=== PATIENT | male | born 1955 | race Caucasian/White ===

== ENCOUNTER 2017-08-25 22:24 | Inpatient (IN) | payer OTHER ==
[~2017-08-25] VITALS: Ht 177.8 cm; Wt 90.7 kg
[~2017-08-25 22:24] MED LIST: ACETAMINOPHEN-1 EAC3 PO; ALPRAZOLAM1 M2 PO; CRESTOR40 M2 PO; CYCLOBENZAPRINE10 M1 PO; DUEXIS 800-26.1 EACH PO; ESCITALOPRAM OX20 MG PO; HYDROCHLOROTHIA25 M1 PO; ISOSORBIDE MONO60 M1 PO; LIDOCAINE1 EACH TOP; METFORMIN HCL500 M3 PO; METOPROLOL TART25 M1 PO; POTASSIUM CHLO20 ME2 PO; VICODIN 5-3001 EACH PO; VICTOZA 3-0.6 MG/0.1 SC
--- NOTE | 2017-08-25 22:34 | ED GI/GU/ABDOMINAL COMPLAINT ---
History of Present Illness General Chief Complaint: Nausea, Vomiting, Diarrhea Stated Complaint: N/V Source: patient, old records, EMS Exam Limitations: no limitations Allergies Coded Allergies: No Known Drug Allergies (Intermediate, NONE 05/11/17) Reconcile Medications Acetaminophen With Codeine (Acetaminophen-Cod #3 Tablet) 300 MG-30 MG TABLET 1 TAB PO Q6P PRN PAIN (Reported) Alprazolam 1 MG TABLET 1 TAB PO BID ANXIETY (Reported) Cyclobenzaprine HCl 10 MG TABLET 1 TAB PO QHS MUSCLE SPASMS (Reported) Escitalopram Oxalate 20 MG TABLET 30 MG PO DAILY MENTAL HEALTH (Reported) Hydrochlorothiazide 25 MG TABLET 1 TAB PO DAILY BP (Reported) Hydrocodone/Acetaminophen (Vicodin 5-300 MG Tablet) 5 MG-300 MG TABLET 1 TAB PO QHS PRN PAIN (Reported) Ibuprofen/Famotidine (Duexis 800-26.6 MG Tablet) 800 MG-26.6 MG TABLET 1 TAB PO TID ANTIINFLAMMATORY (Reported) Isosorbide Mononitrate (Isosorbide Mononitrate ER) 60 MG TAB.ER.24H 1 TAB PO DAILY HEART (Reported) Lidocaine 5 % ADH..PATCH 1 PAT TOP BID PRN PAIN (Reported) Liraglutide (Victoza 3-Giovanny) 0.6 MG/0.1 ML (18 MG/3 ML) PEN.INJCTR 1.8 MG SC DAILY DM (Reported) Metformin HCl 500 MG TABLET 1 TAB PO BID DM (Reported) Metoprolol Tartrate 25 MG TABLET 1.5 TAB PO BID HEART/BP (Reported) Potassium Chloride 20 MEQ TAB.ER.PRT 1 TAB PO DAILY SUPPLEMENT (Reported) Rosuvastatin Calcium (Crestor) 40 MG TABLET 1 TAB PO DAILY CHOLESTEROL ( Reported) Triage Note: PT BIBA FROM HOME FOR N/V AND NOT FEELING WELL X 3 DAYS. PER EMS PT C/O SOB SO THEY PLACED HIM ON 2L NC, AND THEY WERE UNABLE TO OBTAIN AN O2 SAT. PT'S BS EN ROUTE WAS 535, PT STATES HE HAS NOT EATEN OR TAKEN ANY OF HIS MEDS IN SEVERAL DAYS AND IS AN INSULIN DEPENDENT DIABETIC. PT AOX3 Triage Nurses Notes Reviewed? yes Onset: Abrupt Duration: day(s): (3), constant Timing: recent history Quality/Severity: moderate Severity Numbers: 6 Location: generalized abdomen Radiation: no radiation Activities at Onset: DENIES Prior Abdominal Problems: none No Modifying Factors: none Associated Symptoms: DENIES HPI: -year-old male with history of diabetes, coronary artery disease CABG presents the ER for evaluation complaining of nausea vomiting generalized malaise and not feeling well for the past 3 days. He's been unable to take his medication secondary to his symptoms. Denies any alcohol or drug use. No chest pain. He states that today he began feeling short of breath. No fever no chills. He reports a decreased urine output no black or bloody stools no modifying factors or associated symptoms no history of similar symptoms in the past. No history of DKA (Quoc Haney) Vital Signs & Intake/Output Vital Signs & Intake/Output Vital Signs Date Time Temp Pulse Resp B/P B/P Pulse O2 O2 Flow FiO2 Mean Ox Delivery Rate 08/26 0015 97.0 121 20 171/82 100 Nasal 2.0L Cannula 08/25 2305 Nasal 2.0L Cannula 08/25 2232 96.2 120 22 186/92 100 Nasal 2.0L Cannula ED Intake and Output 08/26 0000 08/25 1200 Intake Total Output Total Balance Patient 200 lb Weight Weight Reported by Patient Measurement Method (Michelle BEDOYA,Yahir Cee) Past History Travel History Traveled to [place] past 21 day No Medical History Any Pertinent Medical History? 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 No (Quoc Haney) Review of Systems Review of Systems Constitutional: Reports: see HPI. Comments Review of systems: See HPI, All other systems negative. Constitutional, no chills no fever, HEENT: no sore throat no congestion Cardiovascular: No chest pain , no palpitation Skin: no rashes, no change in skin Respiratory: dyspnea no cough no sputum GI: nausea vomiting, no diarrhea Muscle skeletal: No joint pain, no back pain Neurologic: , no headache Heme/endocrine: No bruising Immunology: No lymphadenopathy (Quoc Haney) Physical Exam Physical Exam General Appearance: well developed/nourished, alert, awake Gastrointestinal: soft, non-tender Comments: Well-developed well-nourished person in MODERATE acute distress HEENT: Normal EENT exam; PERRL, EOMI, HEAD is atraumatic. moist mucous membranes. Neck: Supple,normal range of motion Back:. Full range of motion Cardiovascular: Tachycardic, regular rhythm no murmur Respiratory: No respiratory distress. Patient speaking in full complete sentences. Breath sounds clear to auscultation bilaterally: NO W/R/R Abdomen: Soft, nontender nondistended, no appreciable organomegaly. Normal bowel sounds. No rebound/guarding, Extremity: No edema, full range of motion of extremities Neuro: Alert oriented x3, motor sensory normal. There were no obvious focal neurologic abnormalities. Skin: No appreciable rash on exposed skin, skin is warm and dry. Diaphoretic Psych: Mood and affect is normal, memory and judgment is normal. Core Measures ACS in differential dx? Yes Sepsis Present: No Sepsis Focused Exam Completed? No (Tamara STEWART,Quoc) Progress Differential Diagnosis: AMI, appendicitis, biliary colic, bowel obstruction, colon cancer, cholecystitis, diverticulitis, gastritis, hepatitis, hernia, ischemic bowel, inflamm bowel dis, pancreatitis, peptic ulcer, PUD/GERD, DKA, HHS, DEHYDRATION, ELECTROLYTE ABNORMALITY Diagnostic Imaging: Viewed by Me: CT Scan. Discussed w/RAD: CT Scan. Radiology Impression: PATIENT: VJ ESPINOSA PRESENT AGE: 62 PATIENT ACCOUNT NO: [id number] : 57 LOCATION: [facility] ORDERING PHYSICIAN: Quoc STEWART SERVICE DATE: 08/25/17 EXAM TYPE: CAT - CT ABD & PELVIS W/O IV CONTRAS EXAMINATION: CT ABDOMEN AND PELVIS WITHOUT CONTRAST CLINICAL INFORMATION: Diffuse abdominal pain. Nausea and vomiting. COMPARISON: None TECHNIQUE: Multidetector volumetric imaging was performed from the superior aspect of the liver through the pubic symphysis. Sagittal and coronal reformatted images were obtained on the technologist's workstation. DLP: 484.55 mGy-cm FINDINGS: LUNG BASES: Status post median sternotomy. Asymmetric elevation of left diaphragm above the right with linear subsegmental atelectasis at left lung base. Status post median sternotomy. LIVER, GALLBLADDER, AND BILIARY TREE: The liver is normal in size, shape, and attenuation. No focal hepatic lesion or biliary ductal dilatation is present. The gallbladder is unremarkable with no evidence of radiopaque gallstones, gallbladder wall thickening, or obvious pericholecystic inflammatory changes. PANCREAS: Unremarkable. SPLEEN: Unremarkable. ADRENAL GLANDS: Unremarkable. KIDNEYS AND URETERS: The kidneys are normal in size, shape, and attenuation. No hydronephrosis, hydroureter, or calculi seen. No perinephric stranding. BLADDER: Unremarkable. GASTROINTESTINAL TRACT: No acute change of the bowel. No bowel obstruction. No bowel wall thickening or edema. Moderate volume of stool throughout the colon. The appendix is normal. The small bowel loops are unremarkable. ABDOMINAL WALL: No significant hernia is appreciated. LYMPH NODES: Normal. VASCULAR: Atherosclerotic vascular wall calcifications of aorta and iliac vessels without aneurysm. PELVIC VISCERA: Unremarkable. OSSEOUS STRUCTURES : Degenerative spondylosis of spine with multilevel endplate spurring of the vertebrae. IMPRESSION: No acute abnormality CT scan abdomen pelvis. DICTATED BY: Hans Padilla MD DATE/TIME DICTATED:08/25/172331 HARDWOOD SAWYER:NEW DATE/TIME TRANSCRIBED:08/25/172331 CONFIDENTIAL, DO NOT COPY WITHOUT APPROPRIATE AUTHORIZATION. <Electronically signed in Other Vendor System> SIGNED BY: Hans Padilla MD 08/25/17 2341 Initial ED EKG: STACH AT 110, T WAVE INVERSIONS V4-V6 Prior EKG: changed (04/2017) Rhythm Strip: sinus tachycardia (Quoc Haney) Plan of Care: Orders Procedure Date/time Status Patient Data 08/26 0027 Active Admit to inpatient 08/26 0020 Active URINE OSMOLALITY 08/26 0017 Active URINALYSIS 08/26 0017 Active ARTERIAL BLOOD GAS (GEN) 08/25 2343 Complete SERUM OSMOLALITY 08/25 2300 Complete ACETONE 08/25 2300 Complete MIXED VENOUS BLOOD GAS (GEN) 08/25 2234 Active EKG 08/25 223 Active Saline Lock 08/25 222 Active TROPONIN LEVEL 08/25 222 Complete LIPASE 08/25 222 Complete ETHANOL 08/25 222 Complete COMPREHENSIVE METABOLIC PANEL 08/25 222 Complete CBC WITHOUT DIFFERENTIAL 08/25 222 Complete Laboratory Tests 08/25/17 2300: Anion Gap 36 H, Estimated GFR > 60, BUN/Creatinine Ratio 26.4 H, Glucose 578 * H, Serum Osmolality 333 H, Calcium 9.8, Total Bilirubin 0.6, AST 14 L, ALT 19 L, Alkaline Phosphatase 141 H, Troponin I 0.33 *H, Total Protein 7.6, Albumin 4.7, Globulin 2.9, Albumin/Globulin Ratio 1.6, Lipase 84, CBC w Diff NO MAN DIFF REQ, RBC 5.74, MCV 85.2, MCH 28.0, MCHC 32.8 L, RDW 14.0, MPV 10.7 H, Gran % 90.7 H, Lymphocytes % 7.4 L, Monocytes % 1.7, Eosinophils % 0, Basophils % 0.2 , Absolute Granulocytes 12.8 H, Absolute Lymphocytes 1.0 L, Absolute Monocytes 0.2, Absolute Eosinophils 0, Absolute Basophils 0, Serum Alcohol < 10.0, Acetone Level POSITIVE AT 1:16 DIL 08/25/17 2234: Serum Osmolality Cancelled, Acetone Level Cancelled Labs ordered old records reviewed patient make you Zofran IV fluids and insulin 10 units IV ordered case discussed with Dr. Martinez who evaluated the patient agrees with plan. Given patient's labs insulin drip started at 5 units per hour case discussed with Dr. Martinez agrees with plan I discussed with Dr. Altman regarding the patient's EKG and elevated troponin he has no chest pain he advised to continue trending troponins most likely secondary to demand ischemia. 0 discussed with the patient leave all of his lab results and need for admission to the ICU which he is in agreement. CASE d/w dr lakhani will admit to icu (Quoc Haney) (Michelle BEDOYA,Yahir Cee) Departure Departure Time of Disposition: 5 Disposition: STILL A PATIENT Condition: Stable Clinical Impression Primary Impression: DKA (diabetic ketoacidoses) Qualifiers: Diabetes mellitus type: type 2 Diabetes mellitus complication detail: without coma Qualified Code: E13.10 - Other specified diabetes mellitus with ketoacidosis without coma Secondary Impressions: Acute electrocardiogram changes, Elevated troponin, Hyperkalemia Referrals: Ruiz Lakhani MD (PCP/Family) Departure Forms: Customer Survey General Discharge Information Admission Note Spoke With: Ruiz Lakhani MD Documentation of Exam: Documentation of any treatments & extenuating circumstances including Concerns Regarding Discharge (functional status, medication knowledge or non-compliance, living conditions, etc.) that warrant an admission rather than observation: CAR (Quoc Haney) PA/PHARMACY TECHNICIAN TRAINEE Co-Sign Statement Statement: ED Attending supervision documentation- [X] I saw and evaluated the patient. I have also reviewed all the pertinent lab results and diagnostic results. I agree with the findings and the plan of care as documented in the PA's/PHARMACY TECHNICIAN TRAINEE's documentation. Patient presents for evaluation of malaise generalized weakness and "not feeling well" over the past few days. Physical examination reveals a tired-appearing gentleman with dry mucosa. [] I have reviewed the ED Record and agree with the PA's/PHARMACY TECHNICIAN TRAINEE's documentation. [] Additions or exceptions (if any) to the PAs/PHARMACY TECHNICIAN TRAINEE's note and plan are summarized below: [] (Michelle BEDOYA,Yahir Cee) Critical Care Note Critical Care Note Critical Care Time: 30-74 min (Quoc Haney)
[2017-08-25 23:09] LABS: ABSOLUTE BASOPHIL COUNT 0 /CUMM (0.0-0.2); ABSOLUTE EOSINOPHIL COUNT 0 /CUMM (0.0-0.7); ABSOLUTE GRANULOCYTE CT 12.8 /CUMM (1.4-6.5); ABSOLUTE MONOCYTE COUNT 0.2 /CUMM (0.10-0.60); BASOPHIL % 0.2 % (0.0-2.0); EOSINOPHIL % 0 % (0-5); HEMATOCRIT 48.9 % (42-52); MEAN CORPUSCULAR HGB CONC 32.8 G/DL (33.0-37.0); MEAN CORPUSCULAR VOLUME 85.2 FL (80.0-94.0); MEAN PLATELET VOLUME 10.7 FL (7.4-10.4); PLATELET COUNT 263 /CUMM (130-400); RED BLOOD CELL CT 5.74 /CUMM (4.70-6.10); WHITE BLOOD CELL COUNT 14.1 /CUMM (4.8-10.8)
[2017-08-25 23:14] LABS: GRANULOCYTE % 90.7 % (42.2-75.2)
--- NOTE | 2017-08-25 23:41 | CT SCAN REPORT ---
EXAMINATION: CT ABDOMEN AND PELVIS WITHOUT CONTRAST CLINICAL INFORMATION: Diffuse abdominal pain. Nausea and vomiting. COMPARISON: None TECHNIQUE: Multidetector volumetric imaging was performed from the superior aspect of the liver through the pubic symphysis. Sagittal and coronal reformatted images were obtained on the technologist's workstation. DLP: 484.55 mGy-cm FINDINGS: LUNG BASES: Status post median sternotomy. Asymmetric elevation of left diaphragm above the right with linear subsegmental atelectasis at left lung base. Status post median sternotomy. LIVER, GALLBLADDER, AND BILIARY TREE: The liver is normal in size, shape, and attenuation. No focal hepatic lesion or biliary ductal dilatation is present. The gallbladder is unremarkable with no evidence of radiopaque gallstones, gallbladder wall thickening, or obvious pericholecystic inflammatory changes. PANCREAS: Unremarkable. SPLEEN: Unremarkable. ADRENAL GLANDS: Unremarkable. KIDNEYS AND URETERS: The kidneys are normal in size, shape, and attenuation. No hydronephrosis, hydroureter, or calculi seen. No perinephric stranding. BLADDER: Unremarkable. GASTROINTESTINAL TRACT: No acute change of the bowel. No bowel obstruction. No bowel wall thickening or edema. Moderate volume of stool throughout the colon. The appendix is normal. The small bowel loops are unremarkable. ABDOMINAL WALL: No significant hernia is appreciated. LYMPH NODES: Normal. VASCULAR: Atherosclerotic vascular wall calcifications of aorta and iliac vessels without aneurysm. PELVIC VISCERA: Unremarkable. OSSEOUS STRUCTURES: Degenerative spondylosis of spine with multilevel endplate spurring of the vertebrae. IMPRESSION: No acute abnormality CT scan abdomen pelvis.
--- NOTE | 2017-08-26 00:46 | RADIOLOGY REPORT ---
EXAMINATION: XR PORTABLE CHEST CLINICAL INFORMATION: Diabetic ketoacidosis. Nausea and vomiting. Chest pain. COMPARISON: None TECHNIQUE: Portable frontal view of the chest was obtained. FINDINGS: Cardiac leads overlie the chest. Median sternotomy wires appear intact. Lung volumes are low. Streaky bibasilar opacities are seen which favor subsegmental atelectasis, particularly at the left base. No pleural effusion. No pneumothorax. The cardiomediastinal silhouette is normal in size for this technique with a tortuous and calcified aorta. IMPRESSION: Hypoexpanded lungs with bibasilar atelectasis.
--- NOTE | 2017-08-26 03:59 | History & Physical ---
General Information and HPI MD Statement: I have seen and personally examined VJ ESPINOSA and documented this H&P. The patient is a 62 year old M who presented with a patient stated chief complaint of [N,V,Malaise x 3 days]. Source of Information: patient Exam Limitations: no limitations History of Present Illness: Patient is a 62-year-old male with past medical history of insulin-dependent diabetes, coronary artery disease status post CABG and triple bypass, hypertension, and STEMI who presents with a 2 week history of nonproductive cough and 3 day history of nausea, vomiting, poor appetite and severe malaise with patient not being able to get out of bed and has not been able to eat or take his meds in several days. He denies chest pain, fever or chills, headaches , palpitations, urinary or bowel changes but reports some abd pain. He has no previous hx of DKA. Allergies/Medications Allergies: Coded Allergies: No Known Drug Allergies (Intermediate, NONE 05/11/17) Home Med list Acetaminophen With Codeine (Acetaminophen-Cod #3 Tablet) 300 MG-30 MG TABLET 1 TAB PO Q6P PRN PAIN (Reported) Alprazolam 1 MG TABLET 1 TAB PO BID ANXIETY (Reported) Cyclobenzaprine HCl 10 MG TABLET 1 TAB PO QHS MUSCLE SPASMS (Reported) Escitalopram Oxalate 20 MG TABLET 30 MG PO DAILY MENTAL HEALTH (Reported) Hydrochlorothiazide 25 MG TABLET 1 TAB PO DAILY BP (Reported) Hydrocodone/Acetaminophen (Vicodin 5-300 MG Tablet) 5 MG-300 MG TABLET 1 TAB PO QHS PRN PAIN (Reported) Ibuprofen/Famotidine (Duexis 800-26.6 MG Tablet) 800 MG-26.6 MG TABLET 1 TAB PO TID ANTIINFLAMMATORY (Reported) Isosorbide Mononitrate (Isosorbide Mononitrate ER) 60 MG TAB.ER.24H 1 TAB PO DAILY HEART (Reported) Lidocaine 5 % ADH..PATCH 1 PAT TOP BID PRN PAIN (Reported) Liraglutide (Victoza 3-Giovanny) 0.6 MG/0.1 ML (18 MG/3 ML) PEN.INJCTR 1.8 MG SC DAILY DM (Reported) Metformin HCl 500 MG TABLET 1 TAB PO BID DM (Reported) Metoprolol Tartrate 25 MG TABLET 1.5 TAB PO BID HEART/BP (Reported) Potassium Chloride 20 MEQ TAB.ER.PRT 1 TAB PO DAILY SUPPLEMENT (Reported) Rosuvastatin Calcium (Crestor) 40 MG TABLET 1 TAB PO DAILY CHOLESTEROL ( Reported) Compliance With Home Meds: FAIR Past History Travel History Traveled to [place] past 21 day No Medical History Neurological: NONE EENT: NONE Cardiovascular: hypertension, STEMI Respiratory: NONE Gastrointestinal: NONE Hepatic: NONE Renal: NONE Musculoskeletal: NONE Psychiatric: NONE Endocrine: diabetes Blood Disorders: NONE Cancer(s): NONE 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 Home Smoking Status: Current Everyday Smoker ETOH Use: denies use Illicit Drug Use: denies illicit drug use Living Will? yes Functional Ability ADLs Independent: dressing, eating, toileting, bathing. Review of Systems Review of Systems Constitutional: Reports: see HPI. Exam & Diagnostic Data Last 24 Hrs of Vital Signs/I&O Vital Signs Date Time Temp Pulse Resp B/P B/P Pulse O2 O2 Flow FiO2 Mean Ox Delivery Rate 08/26 0349 97.8 110 20 118/68 100 Nasal 2.0L Cannula 08/26 0145 97.1 115 18 155/84 100 Nasal 2.0L Cannula 08/26 0015 97.0 121 20 171/82 100 Nasal 2.0L Cannula 08/25 2305 Nasal 2.0L Cannula 08/25 2232 96.2 120 22 186/92 100 Nasal 2.0L Cannula Intake & Output 08/26 0800 08/26 0000 08/25 1600 Intake Total 3000 Output Total 1000 Balance 2000 Intake, IV 3000 Output, Urine 1000 Patient 200 lb Weight Weight Reported by Patient Measurement Method Physical Exam General Appearance Alert, Oriented X3, Cooperative, Moderate Distress Skin No Significant Lesion Sepsis Skin Exam (color): Normal for Ethnicity HEENT Atraumatic, PERRLA, EOMI, Mucous Membr. moist/pink Neck Supple, No JVD Cardiovascular Normal S1, Normal S2, No Murmurs, tachycardic Lungs mild crackles in bilateral lung zones Rt>Lt Abdomen Normal Bowel Sounds, generalized tenderness Neurological Strength at 5/5 X4 Ext, Normal Tone, Sensation Intact Extremities No Edema, Normal Pulses Sepsis Peripheral Pulse Location: Dorsalis Pedis Sepsis Peripheral Pulse Exam: Normal Sepsis Cap Refill Exam: <2 Sec Last 24 Hrs of Labs/Nghia: Laboratory Tests 08/26/17 0503: Sodium Pending, Potassium Pending, Chloride Pending, Carbon Dioxide Pending, Anion Gap Pending, BUN Pending, Creatinine Pending, Glucose Pending, Calcium Pending, Phosphorus Pending, Magnesium Pending, Total Bilirubin Pending, AST Pending, ALT Pending, Albumin Pending, CBC w Diff Pending, WBC Pending, RBC Pending, Hgb Pending, Hct Pending, MCV Pending, MCH Pending, MCHC Pending, RDW Pending, Plt Count Pending, MPV Pending 08/26/17 0440: Sodium Cancelled, Potassium Cancelled, Chloride Cancelled, Carbon Dioxide Cancelled, Anion Gap Cancelled, BUN Cancelled, Creatinine Cancelled, BUN/ Creatinine Ratio Cancelled 08/26/17 0236: Urine Osmolality 677 08/26/17 0236: Urine Color YEL, Urine Clarity HAZY H, Urine pH 5.5, Ur Specific [place] >= 1.030, Urine Protein 30 H, Urine Ketones >=80, Urine Nitrite NEG, Urine Bilirubin NEG@ICTO, Urine Urobilinogen 0.2, Ur Leukocyte Esterase NEG, Ur Microscopic SEDIMENT EXAMINED, Urine RBC RARE, Urine WBC 1-3 H, Ur Epithelial Cells FEW, Urine Bacteria FEW H, Micro UA Comment [place]AST H, Urine Hemoglobin TRACE-INTACT H, Urine Glucose >=1000 H 08/25/17 2300: Anion Gap 36 H, Estimated GFR > 60, BUN/Creatinine Ratio 26.4 H, Glucose 578 * H, Serum Osmolality 333 H, Calcium 9.8, Total Bilirubin 0.6, AST 14 L, ALT 19 L, Alkaline Phosphatase 141 H, Troponin I 0.33 *H, Total Protein 7.6, Albumin 4.7, Globulin 2.9, Albumin/Globulin Ratio 1.6, Lipase 84, CBC w Diff NO MAN DIFF REQ, RBC 5.74, MCV 85.2, MCH 28.0, MCHC 32.8 L, RDW 14.0, MPV 10.7 H, Gran % 90.7 H, Lymphocytes % 7.4 L, Monocytes % 1.7, Eosinophils % 0, Basophils % 0.2 , Absolute Granulocytes 12.8 H, Absolute Lymphocytes 1.0 L, Absolute Monocytes 0.2, Absolute Eosinophils 0, Absolute Basophils 0, Serum Alcohol < 10.0, Acetone Level POSITIVE AT 1:16 DIL 08/25/17 2234: Serum Osmolality Cancelled, Acetone Level Cancelled Microbiology 08/26 0500 UPPER RESP: Surveillance Culture - ORD Diagnostic Data EKG Results ST; rate 115, LVH borderline ST changes CXR Results IMPRESSION: Hypoexpanded lungs with bibasilar atelectasis. Other Results CT Abdomen/Pelvis- IMPRESSION: No acute abnormality CT scan abdomen pelvis. Assessment/Plan Assessment: Patient is a 62-year-old male with past medical history of insulin-dependent diabetes, coronary artery disease status post CABG and triple bypass, hypertension, and STEMI who presents with a 2 week history of nonproductive cough and 3 day history of nausea, vomiting, poor appetite and severe malaise with patient not being able to get out of bed not been able to eat or take his meds in several days. Assessment 1. Diabetic ketoacidosis-secondary to poor po intake and dehydration, r/o Sepsis (leukocytosis may be reactive no clear source of infection for now; CXR, ABD/Pelvis CT, UA neg) 2. Rule out ACS-elevated troponins and possible ST changes on EKG 3. Insulin-dependent diabetes 4. Hypertension Plan Admit to the ICU for close monitoring IV ceftriaxone 2g x 1 IV fluids normal saline at 200 cc/h Insulin drip at 5 international units per hour Check labs every 4 hours for closing of anion gap; once glucose reaches 200mg/dl ; change IVF to D51/2 NS at 150cc/hr, then change to SC insulin SS Trend troponins and EKG Endocrinology consult Cardiology consult Blood cultures and urine cultures NPO IV Zofran/Compazine as needed for nausea DNR DVT ppx with heparin As Ranked By This Provider Problem List: 1. DKA (diabetic ketoacidoses) Qualifiers Diabetes mellitus type: type 2 Diabetes mellitus complication detail: without coma Qualified Code: E13.10 - Other specified diabetes mellitus with ketoacidosis without coma 2. Elevated troponin Core Measures/Misc (04/09) Acute Coronary Syndrome ACS Diagnosis: No Congestive Heart Failure Congestive Heart Failure Diagnosis No Cerebrovascular Accident CVA/TIA Diagnosis: No VTE (View Protocol) VTE Risk Factors Age>40 No Mechanical VTE Prophylaxis d/t N/A MechProphylax Ordered No VTE Pharm Prophylaxis d/t NA PharmProphylax ordered Sepsis (View protocol) Sepsis Present: No Resident Review Statement Resident Statement: examined this patient Other Findings: see HPI
[2017-08-26 05:29] LABS: ABSOLUTE BASOPHIL COUNT 0 /CUMM (0.0-0.2); ABSOLUTE EOSINOPHIL COUNT 0 /CUMM (0.0-0.7); ABSOLUTE GRANULOCYTE CT 13.4 /CUMM (1.4-6.5); ABSOLUTE LYMPH COUNT 1.5 /CUMM (1.2-3.4); ABSOLUTE MONOCYTE COUNT 0.4 /CUMM (0.10-0.60); BASOPHIL % 0.3 % (0.0-2.0); EOSINOPHIL % 0 % (0-5); GRANULOCYTE % 87.2 % (42.2-75.2); HEMATOCRIT 45.2 % (42-52); MEAN CORPUSCULAR VOLUME 84.7 FL (80.0-94.0); MEAN PLATELET VOLUME 10.8 FL (7.4-10.4); PLATELET COUNT 252 /CUMM (130-400); RBC DISTRIBUTION WIDTH 13.9 % (11.5-14.5); RED BLOOD CELL CT 5.34 /CUMM (4.70-6.10)
[2017-08-26 06:00] VITALS: BP 178/90
[2017-08-26 06:32] LABS: WHITE BLOOD CELL COUNT 15.3 /CUMM (4.8-10.8)
--- NOTE | 2017-08-26 08:32 | PN- Resident CRCU ---
See Addendum Subjective HPI/CRCU Issues: 1. Diabetic ketoacidosis-secondary to dehydration, r/o Sepsis (leukocytosis may be reactive no clear source of infection for now; CXR, ABD/Pelvis CT, UA neg) 2. NSTEMI-elevated troponins and possible ST changes on EKG 3. Insulin-dependent diabetes 4. Hypertension 24 Hour Events: Patient complained of abdominal discomfort and is requesting Peptobismol. Objective Vital Signs & I&O Last 8 Hrs of Vitals and I&O: Intake & Output 08/26 1600 Intake Total Output Total Balance Patient 200 lb Weight Weight Reported by Patient Measurement Method Exam General Appearance: well developed/nourished, no apparent distress, alert, awake , comfortable Respiratory: normal breath sounds, lungs clear Cardiovascular: regular rate/rhythm Gastrointestinal: normal bowel sounds, soft, non-tender Extremities: no edema Current Medications: Current Medications Sig/Veto Start time Last Medication Dose Route Stop Time Status Admin Acetaminophen 650 MG Q6P PRN 08/26 0415 AC PO Aspirin 0 .STK-MED ONE 08/26 0023 DC PO Aspirin 325 MG ONCE ONE 08/25 2345 DC 08/26 PO 08/25 2346 0022 Atorvastatin Calcium 80 MG 1700 / 1700 AC PO Bismuth Subsalicylate 30 ML PCHS 08/26 0900 AC 08/26 PO 0915 Ceftriaxone Sodium 2,000 MG ONCE ONE 08/26 0700 DC 08/26 IV 08/26 0701 0920 Dextrose/Sodium 1,000 ML Q6H 08/26 0900 DC 08/26 Chloride IV 0920 Escitalopram Oxalate 20 MG DAILY 08/26 1000 AC 08/26 PO 0919 Guaifenesin 600 MG Q12 08/26 1000 AC / PO 0920 Heparin Sodium 5,000 UNIT Q8 08/26 0600 AC 08/26 (Porcine) SC 1513 Insulin Human Regular 100 UNIT Q24H / 0500 AC 08/26 Sodium Chloride 100 ML IV 0528 Insulin Human Regular 100 UNIT ONCE ONE 08/25 2345 DC 08/26 Sodium Chloride 100 ML IV 08/25 2346 0010 Insulin Human Regular 10 UNITS ONCE ONE 08/25 2245 DC 08/25 SC 08/25 2246 2256 Lidocaine 1 PAT DAILY NEEDED PRN 08/26 0630 AC EXT Lorazepam 1 MG ONCE ONE 08/25 2345 DC 08/26 IV 08/25 2346 0006 Lorazepam 0 .STK-MED ONE 08/25 2345 DC .ROUTE Metoclopramide HCl 10 MG Q6P PRN 08/26 0830 AC 08/26 IV 0916 Metoprolol Tartrate 37.5 MG BID 08/26 1000 AC 08/26 PO 0920 Morphine Sulfate 2 MG ONCE ONE 08/26 0130 DC 08/26 IV 08/26 0131 0124 Morphine Sulfate 0 .STK-MED ONE 08/26 0126 DC .ROUTE Ondansetron HCl 0 .STK-MED ONE 08/25 2252 DC .ROUTE Ondansetron HCl 4 MG ONCE ONE 08/25 2245 DC 08/25 IV 08/25 2246 2256 Pantoprazole Sodium 40 MG DAILY 08/26 1000 AC 08/26 IV 0917 Potassium Chloride 20 MEQ 150 MLS/HR 08/26 1030 DC IV Potassium Chloride 20 MEQ Q6H 08/26 1030 AC 08/26 Dextrose/Sodium 1,000 ML IV 1125 Chloride Prochlorperazine 2.5 MG Q4 HRS NEEDED PRN 08/26 0630 DC IV Prochlorperazine 2.5 MG ONCE ONE 08/26 0445 DC 08/26 IV 08/26 0446 0529 Promethazine HCl 25 MG ONCE ONE 08/25 2345 DC 08/26 IV 08/25 2346 0006 Promethazine HCl 0 .STK-MED ONE 08/25 2345 DC .ROUTE Sodium Chloride 1,000 ML .Q10H 08/26 0415 DC 08/26 IV 0500 Sodium Chloride 1,000 ML BOLUS ONE 08/26 0115 DC 08/26 IV 08/26 0214 0117 Sodium Chloride 1,000 ML BOLUS ONE 08/25 2245 DC 08/25 IV 08/25 2344 2256 Sodium Chloride 1,000 ML BOLUS ONE 08/25 2245 DC 08/26 IV 08/25 2344 0015 Trimethobenzamide HCl 200 MG 4 TIMES/DAY PRN 08/26 0700 DC IM Trimethobenzamide HCl 200 MG 4 TIMES/DAY 08/26 0632 DC 08/26 IM 0638 Impression/Plan Impression/Problem List Impression: Mr. Kim is a 62-year-old male with past medical history of insulin- dependent diabetes, coronary artery disease status post CABG and triple bypass, hypertension, and STEMI who presents with a 2 week history of nonproductive cough and 3 day history of nausea, vomiting, poor appetite and severe malaise Problem list: 1. Diabetic ketoacidosis-secondary to dehydration, r/o Sepsis (leukocytosis may be reactive no clear source of infection for now; CXR, ABD/Pelvis CT, UA neg) 2. NSTEMI-elevated troponins and possible ST changes on EKG 3. Insulin-dependent diabetes 4. Hypertension Plan * Peptobismol x 1 dose * IVF changed from NS to D51/2 NS with KCL at 150cc/hr * Glucose and anion gap trending down * Troponins trending up 0.33>>0.77>>0.95 * Serial TROP/ECG, next at 18:00 * CXR: hypoexpanded lungs with bibasilar atelectasis * NPO, Novolin R SS * Guaiac negative * Start IV heparin, aspirin 325mg daily and Plavix 75mg as per Cardio for NSTEMI * ECHO pending Problem List: 1. DKA (diabetic ketoacidoses) 2. Elevated troponin Pain Ratin Tomorrow's Labs & Rationales: Trop ICU Bundle CBC Plan DVT/Prophylaxis: mechanical, pharmacological
--- NOTE | 2017-08-26 08:47 | Admission Certification ---
Admission Certification Certification Statement - As attending physician, I certify that at the time of - admission, based on clinical presentation, severity of - symptoms, need for further diagnostic testing and - therapeutic interventions, and risk of adverse outcomes - without in-hospital treatment, in my clinical assessment, - this patient requires an acute hospital stay for a minimum - of two nights or longer. I have also considered psychsocial - factors such as support system, advanced age, financial - issues, cognitive issues, and failed out-patient treatments, - past re-admission history, safety of patient, and lack of - compliance as applicable. Specific rationale supporting this admission is: Diabetic ketoacidosis, positive troponins history of coronary artery disease. Nausea vomiting
--- NOTE | 2017-08-26 08:50 | PN- Att Addend ---
Attending Addendum Attending Brief Note 62-year-old white male not very compliant with doctor's visits and medications with history of coronary artery disease and diabetes referral last few days having some nausea vomiting not able to hydrate himself well apparently not using the insulin for a while and comes to the emergency room very high sugars positive acetone. Positive troponins with sinus tachycardia. Patient was admitted to the ICU on the blood work was obtained is getting IV fluids was started on an insulin drip until the sugars are under reasonable level. The pressure is elevated area clean consultation and cardiology consultation regarding the positive troponins which might be demand ischemia Current Medications Sig/Veto Start time Last Medication Dose Route Stop Time Status Admin Acetaminophen 650 MG Q6P PRN 08/26 0415 AC PO Aspirin 0 .STK-MED ONE 08/26 0023 DC PO Aspirin 325 MG ONCE ONE 08/25 2345 DC 08/26 PO 08/25 2346 0022 Atorvastatin Calcium 80 MG 1700 08/26 1700 AC PO Bismuth Subsalicylate 30 ML PCHS 08/26 0900 UNVr PO Ceftriaxone Sodium 2,000 MG ONCE ONE 08/26 0700 DC IV 08/26 0701 Escitalopram Oxalate 20 MG DAILY 08/26 1000 AC PO Guaifenesin 600 MG Q12 08/26 1000 AC PO Heparin Sodium 5,000 UNIT Q8 08/26 0600 AC 08/26 (Porcine) SC 0532 Insulin Human Regular 100 UNIT Q24H 08/26 0500 AC 08/26 Sodium Chloride 100 ML IV 0528 Insulin Human Regular 100 UNIT ONCE ONE 08/25 2345 DC 08/26 Sodium Chloride 100 ML IV 08/25 2346 0010 Insulin Human Regular 10 UNITS ONCE ONE 08/25 2245 DC 08/25 SC 08/25 2246 2256 Lidocaine 1 PAT DAILY NEEDED PRN 08/26 0630 AC EXT Lorazepam 1 MG ONCE ONE 08/25 2345 DC 08/26 IV 08/25 2346 0006 Lorazepam 0 .STK-MED ONE 08/25 234 DC .ROUTE Metoclopramide HCl 10 MG Q6P PRN 08/26 0830 AC IV Metoprolol Tartrate 37.5 MG BID 08/26 1000 AC PO Morphine Sulfate 2 MG ONCE ONE 08/26 0130 DC 08/26 IV 08/26 0131 0124 Morphine Sulfate 0 .STK-MED ONE 08/26 0126 DC .ROUTE Ondansetron HCl 0 .STK-MED ONE 08/25 225 DC .ROUTE Ondansetron HCl 4 MG ONCE ONE 08/25 2245 DC 08/25 IV 08/25 2246 2256 Pantoprazole Sodium 40 MG DAILY 08/26 1000 AC IV Prochlorperazine 2.5 MG Q4 HRS NEEDED PRN 08/26 0630 DC IV Prochlorperazine 2.5 MG ONCE ONE 08/26 0445 DC 08/26 IV 08/26 0446 0529 Promethazine HCl 25 MG ONCE ONE 08/25 2345 DC 08/26 IV 08/25 2346 0006 Promethazine HCl 0 .STK-MED ONE 08/25 2345 DC .ROUTE Sodium Chloride 1,000 ML .Q10H 08/26 0415 AC 08/26 IV 0500 Sodium Chloride 1,000 ML BOLUS ONE 08/26 0115 DC 08/26 IV 08/26 0214 0117 Sodium Chloride 1,000 ML BOLUS ONE 08/25 2245 DC 08/25 IV 08/25 2344 2256 Sodium Chloride 1,000 ML BOLUS ONE 08/25 2245 DC 08/26 IV 08/25 2344 0015 Trimethobenzamide HCl 200 MG 4 TIMES/DAY PRN 08/26 0700 DC IM Trimethobenzamide HCl 200 MG 4 TIMES/DAY 08/26 0632 DC 08/26 IM 0638 Laboratory Tests 08/26/17 0640: Anion Gap 24 H, Estimated GFR > 60, Glucose 260 H, Calcium 8.9, Phosphorus 3.7 , Magnesium 2.0, Total Bilirubin 0.4, AST 11 L, ALT 26, Troponin I 0.77 *H, Albumin 4.0 08/26/17 0503: Anion Gap 26 H, Estimated GFR > 60, Glucose 300 H, Calcium 8.9, Phosphorus 4.5 , Magnesium 1.9, Total Bilirubin 0.4, AST 12 L, ALT 31, Albumin 4.1, CBC w Diff NO MAN DIFF REQ, RBC 5.34, MCV 84.7, MCH 28.0, MCHC 33.0, RDW 13.9, MPV 10.8 H, Gran % 87.2 H, Lymphocytes % 10.0 L, Monocytes % 2.5, Eosinophils % 0, Basophils % 0.3, Absolute Granulocytes 13.4 H, Absolute Lymphocytes 1.5, Absolute Monocytes 0.4, Absolute Eosinophils 0, Absolute Basophils 0 08/26/17 0440: Sodium Cancelled, Potassium Cancelled, Chloride Cancelled, Carbon Dioxide Cancelled, Anion Gap Cancelled, BUN Cancelled, Creatinine Cancelled, BUN/ Creatinine Ratio Cancelled 08/26/17 0236: Urine Osmolality 677 08/26/17 0236: Urine Color YEL, Urine Clarity HAZY H, Urine pH 5.5, Ur Specific [place] >= 1.030, Urine Protein 30 H, Urine Ketones >=80, Urine Nitrite NEG, Urine Bilirubin NEG@ICTO, Urine Urobilinogen 0.2, Ur Leukocyte Esterase NEG, Ur Microscopic SEDIMENT EXAMINED, Urine RBC RARE, Urine WBC 1-3 H, Ur Epithelial Cells FEW, Urine Bacteria FEW H, Micro UA Comment [place]UD[place] YEAST H, Urine Hemoglobin TRACE-INTACT H, Urine Glucose >=1000 H 08/25/17 2300: Anion Gap 36 H, Estimated GFR > 60, BUN/Creatinine Ratio 26.4 H, Glucose 578 * H, Serum Osmolality 333 H, Calcium 9.8, Total Bilirubin 0.6, AST 14 L, ALT 19 L, Alkaline Phosphatase 141 H, Troponin I 0.33 *H, Total Protein 7.6, Albumin 4.7, Globulin 2.9, Albumin/Globulin Ratio 1.6, Lipase 84, CBC w Diff NO MAN DIFF REQ, RBC 5.74, MCV 85.2, MCH 28.0, MCHC 32.8 L, RDW 14.0, MPV 10.7 H, Gran % 90.7 H, Lymphocytes % 7.4 L, Monocytes % 1.7, Eosinophils % 0, Basophils % 0.2 , Absolute Granulocytes 12.8 H, Absolute Lymphocytes 1.0 L, Absolute Monocytes 0.2, Absolute Eosinophils 0, Absolute Basophils 0, Serum Alcohol < 10.0, Acetone Level POSITIVE AT 1:16 DIL 08/25/17 2234: Serum Osmolality Cancelled, Acetone Level Cancelled Vital Signs Date Time Temp Pulse Resp B/P B/P Pulse O2 O2 Flow FiO2 Mean Ox Delivery Rate 08/26 599 97 Nasal 2.0L Cannula 08/26 599 97.9 118 18 178/90 97 Nasal 2.0L Cannula 08/26 348 97.8 110 20 118/68 100 Nasal 2.0L Cannula 08/26 0145 97.1 115 18 155/84 100 Nasal 2.0L Cannula
--- NOTE | 2017-08-26 10:00 | Cons- Endocrinology ---
General Information and HPI Consulting Request Date of Consult: 08/26/17 Requested By: medical team Reason for Consult: DKA Source of Information: patient, old records Exam Limitations: poor historian History of Present Illness: History of diabetes for at least the past 20 years. He states that he has diabetic neuropathy but denies retinopathy or kidney disease. He is followed at [place] by Dr. Armendariz. He states he is on Levemir 30 units twice a day as well as Humalog before meals. He was also on Victoza at home. The patient states he was very sick with a cough and weakness. He states he could not get out of bed to take his insulin. Therefore has not taken his insulin for the past 3 years. He began to feel worse and worse and was brought in by ambulance. He was found to have evidence of ketoacidosis. Initial blood sugar on presentation to the ER was glucose 578 BUN 29 creatinine 1.1 sodium 135 potassium 5.5, chloride 92, carbon dioxide 7, anion gap 36, acetone +1-16 troponin elevated at 0.33. The patient is presently on an insulin drip at 6 U/h. His ketoacidosis is clearing gradually. Allergies/Medications Allergies: Coded Allergies: No Known Drug Allergies (Intermediate, NONE 05/11/17) Home Med List: Acetaminophen With Codeine (Acetaminophen-Cod #3 Tablet) 300 MG-30 MG TABLET 1 TAB PO Q6P PRN PAIN (Reported) Alprazolam 1 MG TABLET 1 TAB PO BID ANXIETY (Reported) Cyclobenzaprine HCl 10 MG TABLET 1 TAB PO QHS MUSCLE SPASMS (Reported) Escitalopram Oxalate 20 MG TABLET 30 MG PO DAILY MENTAL HEALTH (Reported) Hydrochlorothiazide 25 MG TABLET 1 TAB PO DAILY BP (Reported) Hydrocodone/Acetaminophen (Vicodin 5-300 MG Tablet) 5 MG-300 MG TABLET 1 TAB PO QHS PRN PAIN (Reported) Ibuprofen/Famotidine (Duexis 800-26.6 MG Tablet) 800 MG-26.6 MG TABLET 1 TAB PO TID ANTIINFLAMMATORY (Reported) Isosorbide Mononitrate (Isosorbide Mononitrate ER) 60 MG TAB.ER.24H 1 TAB PO DAILY HEART (Reported) Lidocaine 5 % ADH..PATCH 1 PAT TOP BID PRN PAIN (Reported) Liraglutide (Victoza 3-Giovanny) 0.6 MG/0.1 ML (18 MG/3 ML) PEN.INJCTR 1.8 MG SC DAILY DM (Reported) Metformin HCl 500 MG TABLET 1 TAB PO BID DM (Reported) Metoprolol Tartrate 25 MG TABLET 1.5 TAB PO BID HEART/BP (Reported) Potassium Chloride 20 MEQ TAB.ER.PRT 1 TAB PO DAILY SUPPLEMENT (Reported) Rosuvastatin Calcium (Crestor) 40 MG TABLET 1 TAB PO DAILY CHOLESTEROL ( Reported) Current Medications: Current Medications Sig/Veto Start time Last Medication Dose Route Stop Time Status Admin Acetaminophen 650 MG Q6P PRN 08/26 0415 AC PO Aspirin 0 .STK-MED ONE 08/26 0023 DC PO Aspirin 325 MG ONCE ONE 08/25 2345 DC 08/26 PO 08/25 2346 0022 Atorvastatin Calcium 80 MG 1700 08/26 1700 AC PO Bismuth Subsalicylate 30 ML PCHS 08/26 0900 AC 08/26 PO 0915 Ceftriaxone Sodium 2,000 MG ONCE ONE 08/26 0700 DC 08/26 IV 08/26 0701 0920 Dextrose/Sodium 1,000 ML Q6H 08/26 0900 AC 08/26 Chloride IV 0920 Escitalopram Oxalate 20 MG DAILY / 1000 AC 08/26 PO 0919 Guaifenesin 600 MG Q12 08/26 1000 AC 08/26 PO 0920 Heparin Sodium 5,000 UNIT Q8 08/26 0600 AC 08/26 (Porcine) SC 0532 Insulin Human Regular 100 UNIT Q24H / 0500 AC 08/26 Sodium Chloride 100 ML IV 0528 Insulin Human Regular 100 UNIT ONCE ONE 08/25 2345 DC 08/26 Sodium Chloride 100 ML IV 08/25 2346 0010 Insulin Human Regular 10 UNITS ONCE ONE 08/25 2245 DC 08/25 SC 08/25 2246 2256 Lidocaine 1 PAT DAILY NEEDED PRN 08/26 0630 AC EXT Lorazepam 1 MG ONCE ONE 08/25 2345 DC 08/26 IV 08/25 2346 0006 Lorazepam 0 .STK-MED ONE 08/25 2345 DC .ROUTE Metoclopramide HCl 10 MG Q6P PRN 08/26 0830 AC 08/26 IV 0916 Metoprolol Tartrate 37.5 MG BID / 1000 AC 08/26 PO 0920 Morphine Sulfate 2 MG ONCE ONE 08/26 0130 DC 08/26 IV 08/26 0131 0124 Morphine Sulfate 0 .STK-MED ONE 08/26 0126 DC .ROUTE Ondansetron HCl 0 .STK-MED ONE 08/25 2252 DC .ROUTE Ondansetron HCl 4 MG ONCE ONE 08/25 2245 DC 08/25 IV 08/25 2246 2256 Pantoprazole Sodium 40 MG DAILY 08/26 1000 AC 08/26 IV 0917 Prochlorperazine 2.5 MG Q4 HRS NEEDED PRN 08/26 0630 DC IV Prochlorperazine 2.5 MG ONCE ONE 08/26 0445 DC / IV 08/26 0446 0529 Promethazine HCl 25 MG ONCE ONE 08/25 2345 DC / IV 08/25 2346 0006 Promethazine HCl 0 .STK-MED ONE 08/25 2345 DC .ROUTE Sodium Chloride 1,000 ML .Q10H 08/26 0415 DC 08/26 IV 0500 Sodium Chloride 1,000 ML BOLUS ONE 08/26 0115 DC 08/26 IV 08/26 0214 0117 Sodium Chloride 1,000 ML BOLUS ONE 08/25 2245 DC 08/25 IV 08/25 2344 2256 Sodium Chloride 1,000 ML BOLUS ONE 08/25 2245 DC / IV 08/25 2344 0015 Trimethobenzamide HCl 200 MG 4 TIMES/DAY PRN 08/26 0700 DC IM Trimethobenzamide HCl 200 MG 4 TIMES/DAY 08/26 0632 DC 08/26 IM 0638 Review of Systems Review of Systems Constitutional: Reports: malaise, weakness. Cardiovascular: Denies: chest pain. Respiratory: Reports: short of breath. GI: Reports: nausea, vomiting. Genitourinary: Denies: dysuria. Neurological/Psychological: Reports: depressed (recent divorce and loss of job), numbness (both feet). 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 Home Smoking Status: Current Everyday Smoker ETOH Use: denies use Illicit Drug Use: denies illicit drug use Living Will? yes Functional Ability ADLs Independent: dressing, eating, toileting, bathing. Exam & Diagnostic Data Last 24 Hrs of Vital Signs/I&O Vital Signs Date Time Temp Pulse Resp B/P B/P Pulse O2 O2 Flow FiO2 Mean Ox Delivery Rate 08/26 0929 99 Nasal 2.0L Cannula 08/26 0920 110 200/110 02/ 0600 97 Nasal 2.0L Cannula 08/26 06 97.9 118 18 178/90 97 Nasal 2.0L Cannula 08/26 0349 97.8 110 20 118/68 100 Nasal 2.0L Cannula 08/26 0145 97.1 115 18 155/84 100 Nasal 2.0L Cannula 08/26 0015 97.0 121 20 171/82 100 Nasal 2.0L Cannula 08/25 2305 Nasal 2.0L Cannula 08/25 223 96.2 120 22 186/92 100 Nasal 2.0L Cannula Intake & Output 08/26 1600 08/26 0800 08/26 0000 Intake Total 3520 Output Total 1600 Balance 1920 Intake, IV 3000 Intake, 520 TPN/PPN Output, Urine 1600 Patient 200 lb 185 lb 200 lb Weight Weight Reported by Patient Reported by Patient Measurement Method Vital Signs Date Time Temp Pulse Resp B/P B/P Pulse O2 O2 Flow FiO2 Mean Ox Delivery Rate 08/26 0829 99 Nasal 2.0L Cannula 08/26 919 110 200/110 / 0600 97 Nasal 2.0L Cannula 08/26 06 97.9 118 18 178/90 97 Nasal 2.0L Cannula 08/26 0349 97.8 110 20 118/68 100 Nasal 2.0L Cannula 08/26 0145 97.1 115 18 155/84 100 Nasal 2.0L Cannula 08/26 0015 97.0 121 20 171/82 100 Nasal 2.0L Cannula 08/25 2305 Nasal 2.0L Cannula 08/25 2231 96.2 120 22 186/92 100 Nasal 2.0L Cannula Intake & Output 08/26 1600 08/26 0800 / 0000 Intake Total 3520 Output Total 1600 Balance 1920 Intake, IV 3000 Intake, 520 TPN/PPN Output, Urine 1600 Patient 200 lb 185 lb 200 lb Weight Weight Reported by Patient Reported by Patient Measurement Method Physical Exam General Appearance: alert, awake Head: normal appearance Eyes: Bilateral: normal appearance. Neck: normal inspection Respiratory: normal breath sounds Cardiovascular: tachycardia Gastrointestinal: normal bowel sounds, soft Extremities: normal inspection Labs/Nghia Results: Laboratory Tests 08/26 08/26 08/26 0640 0503 0440 Chemistry Sodium (137 - 145 mmol/L) 141 140 Cancelled Potassium (3.5 - 5.1 mmol/L) 4.4 4.4 Cancelled Chloride (98 - 107 mmol/L) 104 103 Cancelled Carbon Dioxide (22 - 30 mmol/L) 13 L 11 L Cancelled Anion Gap (5 - 16) 24 H 26 H Cancelled BUN (9 - 20 mg/dL) 29 H 28 H Cancelled Creatinine (0.7 - 1.2 mg/dL) 0.9 0.9 Cancelled Estimated GFR (>60 ml/min) > 60 > 60 BUN/Creatinine Ratio Cancelled Glucose (65 - 99 mg/dL) 260 H 300 H Calcium (8.4 - 10.2 mg/dL) 8.9 8.9 Phosphorus (2.5 - 4.5 mg/dL) 3.7 4.5 Magnesium (1.6 - 2.3 mg/dL) 2.0 1.9 Total Bilirubin (0.2 - 1.3 mg/dL) 0.4 0.4 AST (17 - 59 U/L) 11 L 12 L ALT (21 - 72 U/L) 26 31 Troponin I (<0.11 ng/ml) 0.77 *H Albumin (3.5 - 5.0 g/dL) 4.0 4.1 Hematology CBC w Diff NO MAN DIFF REQ WBC (4.8 - 10.8 /CUMM) 15.3 H RBC (4.70 - 6.10 /CUMM) 5.34 Hgb (14.0 - 18.0 G/DL) 14.9 Hct (42 - 52 %) 45.2 MCV (80.0 - 94.0 FL) 84.7 MCH (27.0 - 31.0 PG) 28.0 MCHC (33.0 - 37.0 G/DL) 33.0 RDW (11.5 - 14.5 %) 13.9 Plt Count (130 - 400 /CUMM) 252 MPV (7.4 - 10.4 FL) 10.8 H Gran % (42.2 - 75.2 %) 87.2 H Lymphocytes % (20.5 - 51.1 %) 10.0 L Monocytes % (1.7 - 9.3 %) 2.5 Eosinophils % (0 - 5 %) 0 Basophils % (0.0 - 2.0 %) 0.3 Absolute Granulocytes (1.4 - 6.5 /CUMM) 13.4 H Absolute Lymphocytes (1.2 - 3.4 /CUMM) 1.5 Absolute Monocytes (0.10 - 0.60 /CUMM) 0.4 Absolute Eosinophils (0.0 - 0.7 /CUMM) 0 Absolute Basophils (0.0 - 0.2 /CUMM) 0 08/26 08/26 0236 0236 Urines Urine Color (YEL,AMB,STR) YEL Urine Clarity (CLEAR) HAZY H Urine pH (5.0 - 8.0) 5.5 Ur Specific [place] (1.001 - 1.035) >= 1.030 Urine Protein (NEG,<30 MG/DL) 30 H Urine Ketones (NEG) >=80 Urine Nitrite (NEG) NEG Urine Bilirubin (NEG) NEG@ICTO Urine Urobilinogen (0.1 - 1.0 EU/dl) 0.2 Ur Leukocyte Esterase (NEG) NEG Ur Microscopic SEDIMENT EXAMINED Urine RBC (0 - 5 /HPF) RARE Urine WBC (0 - 2 /HPF) 1-3 H Ur Epithelial Cells (NONE,FEW) FEW Urine Bacteria (NEG/NONE) FEW H Micro UA Comment BUDDING YEAST H Urine Hemoglobin (NEG) TRACE-INTACT H Urine Osmolality (300 - 1000 MOSM/KG) 677 Urine Glucose (N MG/DL) >=1000 H 08/25 08/25 2300 2234 Chemistry Sodium (137 - 145 mmol/L) 135 L Potassium (3.5 - 5.1 mmol/L) 5.5 H Chloride (98 - 107 mmol/L) 92 L Carbon Dioxide (22 - 30 mmol/L) 7 *L Anion Gap (5 - 16) 36 H BUN (9 - 20 mg/dL) 29 H Creatinine (0.7 - 1.2 mg/dL) 1.1 Estimated GFR (>60 ml/min) > 60 BUN/Creatinine Ratio (7 - 25 %) 26.4 H Glucose (65 - 99 mg/dL) 578 *H Serum Osmolality (285 - 295 MOSM/KG) 333 H Cancelled Calcium (8.4 - 10.2 mg/dL) 9.8 Total Bilirubin (0.2 - 1.3 mg/dL) 0.6 AST (17 - 59 U/L) 14 L ALT (21 - 72 U/L) 19 L Alkaline Phosphatase (< 127 U/L) 141 H Troponin I (<0.11 ng/ml) 0.33 *H Total Protein (6.3 - 8.2 g/dL) 7.6 Albumin (3.5 - 5.0 g/dL) 4.7 Globulin (1.9 - 4.2 gm/dL) 2.9 Albumin/Globulin Ratio (1.1 - 2.2 %) 1.6 Lipase (23 - 300 U/L) 84 Hematology CBC w Diff NO MAN DIFF REQ WBC (4.8 - 10.8 /CUMM) 14.1 H RBC (4.70 - 6.10 /CUMM) 5.74 Hgb (14.0 - 18.0 G/DL) 16.1 Hct (42 - 52 %) 48.9 MCV (80.0 - 94.0 FL) 85.2 MCH (27.0 - 31.0 PG) 28.0 MCHC (33.0 - 37.0 G/DL) 32.8 L RDW (11.5 - 14.5 %) 14.0 Plt Count (130 - 400 /CUMM) 263 MPV (7.4 - 10.4 FL) 10.7 H Gran % (42.2 - 75.2 %) 90.7 H Lymphocytes % (20.5 - 51.1 %) 7.4 L Monocytes % (1.7 - 9.3 %) 1.7 Eosinophils % (0 - 5 %) 0 Basophils % (0.0 - 2.0 %) 0.2 Absolute Granulocytes (1.4 - 6.5 /CUMM) 12.8 H Absolute Lymphocytes (1.2 - 3.4 /CUMM) 1.0 L Absolute Monocytes (0.10 - 0.60 /CUMM) 0.2 Absolute Eosinophils (0.0 - 0.7 /CUMM) 0 Absolute Basophils (0.0 - 0.2 /CUMM) 0 Toxicology Serum Alcohol (<10 MG/DL) < 10.0 Acetone Level (NEGATIVE) POSITIVE AT 1:16 DIL Cancelled Assessment/Plan Assessment/Plan This 62-year-old male presents with diabetic ketoacidosis. He states he had not taken his insulin for about 3 days prior to admission. Previously he was on Victoza metformin and insulin at home. He is followed at [facility]. The patient has a past history of coronary artery disease status post ND and CABG. His troponin is slightly elevated. The patient has been treated with an insulin drip and IV fluids. At this time we need to make sure that his potassium and his intravenous fluids. We should change his IV to D5 half-normal saline with 20 mEq KCl at 150 cc/h. We should maintain the insulin drip to keep her sugar between 120 and 180. We should measure his BMP every 4 hours now that his numbers are starting to improve. Cardiology consult to be obtained. Consult Acknowledgment - Thank you for your consult request.
[2017-08-26 16:00] VITALS: BP 144/86
--- NOTE | 2017-08-26 16:24 | Cons- Cardiology ---
General Information and HPI Consulting Request Date of Consult: 08/26/17 Requested By: Ruiz Lakhani MD History of Present Illness: This patient is a 62 year old male with history of diabetes, hypertension and coronary artery disease status post CABG. Over the past three weeks this patient has noted shortness of breath with cough productive of some grayish sputum. He has also noted a moderate precordial chest discomfort over the same period of time which he attributed to heartburn. This discomfort radiated toward his back. There was no clear association with physical activity and he tended to feel a bit better standing than lying down. Yesterday he had an episode of vomiting. Finally, this patient has also noted weakness and malaise with decreased appetite. He had not taken his medications in multiple days. In the hospital this patient ruled in for an TX by cardiac enzymes. He also had an elevated blood glucose consistent with ketoacidosis likely due to not taking his insulin. Allergies/Medications Allergies: Coded Allergies: No Known Drug Allergies (Intermediate, NONE 05/11/17) Home Med List: Acetaminophen With Codeine (Acetaminophen-Cod #3 Tablet) 300 MG-30 MG TABLET 1 TAB PO Q6P PRN PAIN (Reported) Alprazolam 1 MG TABLET 1 TAB PO BID ANXIETY (Reported) Cyclobenzaprine HCl 10 MG TABLET 1 TAB PO QHS MUSCLE SPASMS (Reported) Escitalopram Oxalate 20 MG TABLET 30 MG PO DAILY MENTAL HEALTH (Reported) Hydrochlorothiazide 25 MG TABLET 1 TAB PO DAILY BP (Reported) Hydrocodone/Acetaminophen (Vicodin 5-300 MG Tablet) 5 MG-300 MG TABLET 1 TAB PO QHS PRN PAIN (Reported) Ibuprofen/Famotidine (Duexis 800-26.6 MG Tablet) 800 MG-26.6 MG TABLET 1 TAB PO TID ANTIINFLAMMATORY (Reported) Isosorbide Mononitrate (Isosorbide Mononitrate ER) 60 MG TAB.ER.24H 1 TAB PO DAILY HEART (Reported) Lidocaine 5 % ADH..PATCH 1 PAT TOP BID PRN PAIN (Reported) Liraglutide (Victoza 3-Giovanny) 0.6 MG/0.1 ML (18 MG/3 ML) PEN.INJCTR 1.8 MG SC DAILY DM (Reported) Metformin HCl 500 MG TABLET 1 TAB PO BID DM (Reported) Metoprolol Tartrate 25 MG TABLET 1.5 TAB PO BID HEART/BP (Reported) Potassium Chloride 20 MEQ TAB.ER.PRT 1 TAB PO DAILY SUPPLEMENT (Reported) Rosuvastatin Calcium (Crestor) 40 MG TABLET 1 TAB PO DAILY CHOLESTEROL ( Reported) Past History Travel History Traveled to [place] past 21 day No Medical History Neurological: NONE EENT: NONE Cardiovascular: hypertension, STEMI, OPEN HEART SURGERY Respiratory: NONE Gastrointestinal: NONE Hepatic: NONE Renal: NONE Musculoskeletal: NONE Psychiatric: NONE Endocrine: diabetes Blood Disorders: NONE Cancer(s): NONE 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 Home Smoking Status: Current Everyday Smoker ETOH Use: denies use Illicit Drug Use: denies illicit drug use Living Will? yes Functional Ability ADLs Independent: dressing, eating, toileting, bathing. Exam & Diagnostic Data Vital Signs and I&O Vital Signs Date Time Temp Pulse Resp B/P B/P Pulse O2 O2 Flow FiO2 Mean Ox Delivery Rate 08/26 1200 97 Nasal 2.0L Cannula 08/26 0929 99 Nasal 2.0L Cannula 08/26 0920 110 200/110 08/26 0800 Nasal 2.0L Cannula 08/26 0600 97 Nasal 2.0L Cannula 08/26 0600 97.9 118 18 178/90 97 Nasal 2.0L Cannula 08/26 0349 97.8 110 20 118/68 100 Nasal 2.0L Cannula 08/26 0145 97.1 115 18 155/84 100 Nasal 2.0L Cannula 08/26 0015 97.0 121 20 171/82 100 Nasal 2.0L Cannula 08/25 2305 Nasal 2.0L Cannula 08/25 2232 96.2 120 22 186/92 100 Nasal 2.0L Cannula Intake & Output 08/26 1600 08/26 0800 08/26 0000 08/25 1600 08/25 0800 08/25 0000 Intake Total 1517 3520 Output Total 575 1600 Balance 942 1920 Intake, IV 1397 3000 Intake, Oral 120 Intake, 520 TPN/PPN Number 0 Bowel Movements Output, Urine 575 1600 Patient 200 lb 185 lb 200 lb Weight Weight Reported by Patient Reported by Patient Measurement Method Physical Exam: General: WD/WN male in NAD; alert and oriented x 3 HEENT: NC/AT, PERRL, EOMI Neck: no JVD, no carotid bruit Heart: RRR w/o murmur, positive S4 Lungs: clear bilaterally Abdomen: soft, NT, +ve bowel sounds Extremties: no edema Diagnostic Data EKG Results sinus rhythm with ischemic T wave inversions. Assessment/Plan Assessment/Plan * This patient had nausea and vomiting that was likely related to his DKA although nausea is certainly a symptom that can occur with myocardial ischemia. In addition, DKA can be precipitated by myocardial ischemia or an TX but in this case the patient was not taking his medications which was a more likely cause of his DKA. Over the past couple weeks this patient has had chest pain and now demonstrate T wave inversions and positive cardiac enzymes consistent with a NSTEMI. * Obtain an echocardiogram. * Follow cardiac enzymes until they peak. * Begin IV heparin, aspirin 325mg daily and Plavix 75mg daily. Continue Lipitor and Metoprolol as currently prescribed. Begin NTG paste 1/2 inch Q6 hrs. Consult Acknowledgment - Thank you for your consult request.
[2017-08-26 23:59] VITALS: BP 130/78
[2017-08-27 01:30] LABS: PTT 38 SEC (25-37)
[2017-08-27 05:34] LABS: ABSOLUTE BASOPHIL COUNT 0.1 /CUMM (0.0-0.2); ABSOLUTE EOSINOPHIL COUNT 0.1 /CUMM (0.0-0.7); ABSOLUTE GRANULOCYTE CT 4.6 /CUMM (1.4-6.5); ABSOLUTE LYMPH COUNT 2.4 /CUMM (1.2-3.4); ABSOLUTE MONOCYTE COUNT 0.4 /CUMM (0.10-0.60); BASOPHIL % 0.7 % (0.0-2.0); MEAN CORPUSCULAR HGB 28.1 PG (27.0-31.0); MEAN CORPUSCULAR HGB CONC 33.6 G/DL (33.0-37.0); MEAN CORPUSCULAR VOLUME 83.7 FL (80.0-94.0); MEAN PLATELET VOLUME 10.7 FL (7.4-10.4); PLATELET COUNT 170 /CUMM (130-400); RBC DISTRIBUTION WIDTH 14.2 % (11.5-14.5); RED BLOOD CELL CT 4.72 /CUMM (4.70-6.10)
[2017-08-27 05:38] LABS: HEMATOCRIT 39.5 % (42-52); WHITE BLOOD CELL COUNT 7.5 /CUMM (4.8-10.8)
[2017-08-27 08:00] VITALS: BP 151/84
--- NOTE | 2017-08-27 08:55 | PN- Resident CRCU ---
Subjective HPI/CRCU Issues: 1. Diabetic ketoacidosis-secondary to dehydration, r/o Sepsis (leukocytosis may be reactive no clear source of infection for now; CXR, ABD/Pelvis CT, UA neg) 2. NSTEMI-elevated troponins and possible ST changes on EKG 3. Insulin-dependent diabetes 4. Hypertension 24 Hour Events: Vitals remained stable. BS remained elevated, but he did not have any anion gap. Objective Vital Signs & I&O Last 8 Hrs of Vitals and I&O: Intake & Output 08/27 1600 Intake Total 629 Output Total 1200 Balance -571 Intake, IV 149 Intake, Oral 480 Number 0 Bowel Movements Output, Urine 1200 Exam General Appearance: well developed/nourished, alert, awake Head: atraumatic Ears, Nose, Throat: normal pharynx Neck: normal inspection Respiratory: normal breath sounds Cardiovascular: regular rate/rhythm Gastrointestinal: normal bowel sounds, soft, non-tender Extremities: normal inspection Cranial Nerves: normal hearing, normal speech, PERRL Skin: intact, normal color, warm/dry Skin Temp/Moisture Exam: Warm/Dry Sepsis Skin Exam (color): Normal for Ethnicity Back: normal inspection Current Medications: she is a Current Medications Sig/Veto Start time Last Medication Dose Route Stop Time Status Admin Acetaminophen 650 MG Q6P PRN 08/26 0415 AC PO Aspirin 325 MG DAILY 08/26 1650 AC 08/27 PO 1219 Atorvastatin Calcium 80 MG 1700 / 1700 AC 08/27 PO 1701 Bismuth Subsalicylate 30 ML PCHS 08/26 0900 AC 08/27 PO 0734 Calcium 600 MG BID 08/26 2200 AC 08/27 PO 2242 Cholecalciferol 1,000 IU DAILY 08/27 1000 AC / PO 1220 Clopidogrel Bisulfate 75 MG DAILY 08/26 1650 AC 08/27 PO 1219 Escitalopram Oxalate 20 MG DAILY / 1000 AC 08/27 PO 1220 Guaifenesin 600 MG Q12 / 1000 AC / PO 2242 Heparin Sodium 5,000 UNIT .STK-MED ONE 08/27 0322 DC (Porcine) IV 08/27 0323 Heparin Sodium 5,442 UNIT BOLUS ONE 08/27 0156 DC 08/27 (Porcine) IV 08/27 0157 0345 Heparin Sodium/ 25,000 UNIT Q24H 08/26 1700 AC 08/27 Dextrose IV 1705 Dextrose/Water 500 ML Insulin Aspart 0 AC & AT BEDTIME 08/26 1800 AC 08/27 SC 2250 Insulin Detemir 20 UNITS BID 08/27 2200 AC 08/27 SC 2250 Insulin Detemir 15 UNITS BID 08/27 1000 DC SC Lidocaine 1 PAT DAILY NEEDED PRN 08/26 0630 AC EXT Metoclopramide HCl 10 MG Q6P PRN 08/26 0830 AC 08/26 IV 0916 Metoprolol Tartrate 37.5 MG BID 08/26 1000 AC 08/27 PO 2242 Nitroglycerin 0.5 GM Q6 08/26 1800 AC 08/27 TOP 1659 Pantoprazole Sodium 40 MG DAILY 08/26 1000 AC 08/27 IV 1226 Potassium Chloride 40 MEQ ONCE ONE 08/27 1200 DC 08/27 PO 08/27 1201 1218 Impression/Plan Impression/Problem List Impression: Mr. Kim is a 62-year-old male with past medical history of insulin- dependent diabetes, coronary artery disease status post CABG and triple bypass, hypertension, and STEMI who presents with a 2 week history of nonproductive cough and 3 day history of nausea, vomiting, poor appetite and severe malaise Problem list: 1. Diabetic ketoacidosis-secondary to dehydration, r/o Sepsis (leukocytosis may be reactive no clear source of infection for now; CXR, ABD/Pelvis CT, UA neg) 2. NSTEMI-elevated troponins and possible ST changes on EKG 3. Insulin-dependent diabetes 4. Hypertension Plan 1. DKA- likely secondary to dehydration. Gap closed, but the blood sugars remained elevated. Diet was advanced overnight, and started on levemir overnight. The dose of levemir has been changed to levemir 20 U BID, as per Dr. Stout recommendation. * Continue levemir 20 U BID * Novolog sliding scale TIDAC/HS * Check CARL[place] 65, as per Dr. Stout recs. * Would replete electrolytes aggressively. 2. NSTEMI- EKG showed T wave inversions and positive cardiac enzymes consistent with a NSTEMI. Normal EF on echocardiogram. Cardiac enzymes trended down 0.33--> 0.77-->0.95. * Continue iv heparin, aspirin, and plavix. * Continue metoprolol. Housekeepin. DVT Ppx- Heparin iv 2. DNR/DNI. Problem List: 1. Hyperkalemia 2. Elevated troponin 3. Acute electrocardiogram changes 4. DKA (diabetic ketoacidoses) Pain Ratin Tomorrow's Labs & Rationales: cbc bep Plan DVT/Prophylaxis: mechanical, pharmacological
--- NOTE | 2017-08-27 09:07 | PN- Diabetes ---
Assessment/Plan Assessment: This 62-year-old male came into the hospital with evidence of diabetic ketoacidosis. Last night he was converted from the insulin drip to subcu insulin. He is presently on Levemir 15 units twice a day and sliding scale NovoLog. This morning in the lab his sugar was 362 and his fingerstick was 491. The patient states he feels improved. He has had no further nausea vomiting. The patient feels depressed because she underwent a recent divorce and also has lost his job. He states he suffers from severe diabetic neuropathy. He does have some pain in his left calf. Plan: Patient is eating well and his ketoacidosis is resolved. His potassium is mildly low and should be repleted. Suggest increase Levemir to 20 units twice a day. Continue sliding scale NovoLog. We should check the patient's anti-gino antibody. Consider venous Doppler left leg. From the diabetes point of view the patient could be moved out of the intensive care unit. Subjective Subjective: Feels improved Review of Systems Constitutional: Denies: chills, fever. Cardiovascular: Denies: chest pain. Respiratory: Denies: cough, short of breath. Gastrointestinal: Denies: abdominal pain, nausea, vomiting. Skin: Reports: no symptoms (cuts left foot). Objective Last 24 Hrs of Vital Signs/I&O Vital Signs Date Time Temp Pulse Resp B/P B/P Pulse O2 O2 Flow FiO2 Mean Ox Delivery Rate 08/27 0400 Nasal 2.0L Cannula 08/27 0000 98 Nasal 2.0L Cannula 08/26 2359 98.1 77 17 130/78 98 Nasal 2.0L Cannula 08/26 2135 98.2 96 17 142/78 08/26 2000 100 Nasal 2.0L Cannula 08/26 1600 100 Nasal 2.0L Cannula 08/26 1600 98.2 88 17 144/86 100 Nasal 2.0L Cannula 08/26 1200 97 Nasal 2.0L Cannula 08/26 0929 99 Nasal 2.0L Cannula 08/26 0920 110 200/110 Intake & Output 08/27 1600 08/27 0800 08/27 0000 Intake Total 196.5 692 Output Total 600 800 Balance -403.5 -108 Intake, IV 196.5 412 Intake, Oral 280 Output, Urine 600 800 Vital Signs Date Time Temp Pulse Resp B/P B/P Pulse O2 O2 Flow FiO2 Mean Ox Delivery Rate 08/27 0400 Nasal 2.0L Cannula 08/27 0000 98 Nasal 2.0L Cannula 08/26 2359 98.1 77 17 130/78 98 Nasal 2.0L Cannula 08/26 2135 98.2 96 17 142/78 / 2000 100 Nasal 2.0L Cannula 08/26 1600 100 Nasal 2.0L Cannula 08/26 1600 98.2 88 17 144/86 100 Nasal 2.0L Cannula 08/26 1200 97 Nasal 2.0L Cannula 08/26 0929 99 Nasal 2.0L Cannula 08/26 0920 110 200/110 Intake & Output 08/27 1600 08/27 0800 08/27 0000 Intake Total 196.5 692 Output Total 600 800 Balance -403.5 -108 Intake, IV 196.5 412 Intake, Oral 280 Output, Urine 600 800 Physical Exam General Appearance: alert, awake, comfortable Head: normal appearance Respiratory: normal breath sounds Abdomen: normal bowel sounds, soft Extremities: tenderness (left calf) Current Medications: Current Medications Sig/Veto Start time Last Medication Dose Route Stop Time Status Admin Acetaminophen 650 MG Q6P PRN / 0415 AC PO Aspirin 325 MG DAILY 08/26 1650 AC 02 PO 1736 Atorvastatin Calcium 80 MG 1700 / 1700 AC 02 PO 1736 Bismuth Subsalicylate 30 ML PCHS 02/ 0900 AC 02 PO 0734 Calcium 600 MG BID 02/ 2200 AC / PO 2135 Cholecalciferol 1,000 IU DAILY / 1000 AC PO Clopidogrel Bisulfate 75 MG DAILY / 1650 AC / PO 1736 Dextrose/Sodium 1,000 ML Q6H / 0900 DC 02/ Chloride IV 0920 Escitalopram Oxalate 20 MG DAILY / 1000 AC 02/ PO 0919 Guaifenesin 600 MG Q12 02/ 1000 AC 02/ PO 2135 Heparin Sodium 5,442 UNIT BOLUS ONE 08/27 0156 DC 08/27 (Porcine) IV 08/27 0157 0345 Heparin Sodium 5,000 UNIT Q8 08/26 0600 DC 08/26 (Porcine) SC 1513 Heparin Sodium/ 25,000 UNIT Q24H / 1700 AC 02/ Dextrose IV 1932 Dextrose/Water 500 ML Insulin Aspart 0 AC & AT BEDTIME 08/26 1800 AC 08/27 SC 0733 Insulin Detemir 15 UNITS BID 08/27 1000 AC SC Insulin Detemir 15 UNITS ONCE ONE 08/26 1745 DC 08/26 SC 08/26 1746 1758 Insulin Human Regular 1 UNITS .STK-MED ONE 08/26 1749 DC IV 08/26 1750 Insulin Human Regular 100 UNIT Q24H 08/26 0500 DC 08/26 Sodium Chloride 100 ML IV 0528 Lidocaine 1 PAT DAILY NEEDED PRN 08/26 0630 AC EXT Metoclopramide HCl 10 MG Q6P PRN 08/26 0830 AC 08/26 IV 0916 Metoprolol Tartrate 37.5 MG BID 08/26 1000 AC 08/26 PO 2135 Nitroglycerin 0.5 GM Q6 08/26 1800 AC 08/27 TOP 0604 Pantoprazole Sodium 40 MG DAILY 08/26 1000 AC 08/26 IV 0917 Potassium Chloride 20 MEQ 150 MLS/HR 08/26 1030 DC IV Potassium Chloride 20 MEQ Q6H 08/26 1030 DC 08/26 Dextrose/Sodium 1,000 ML IV 1125 Chloride Findings Pertinent Lab/Nghia Results: Laboratory Tests 08/27 08/27 08/27 08/26 0810 0430 0100 2120 Chemistry Sodium (137 - 145 mmol/L) 138 138 Potassium (3.5 - 5.1 mmol/L) 3.4 L 3.8 Chloride (98 - 107 mmol/L) 104 106 Carbon Dioxide (22 - 30 mmol/L) 20 L 18 L Anion Gap (5 - 16) 14 13 BUN (9 - 20 mg/dL) 18 19 Creatinine (0.7 - 1.2 mg/dL) 0.7 0.7 Estimated GFR (>60 ml/min) > 60 > 60 Glucose (65 - 99 mg/dL) 362 H 285 H Calcium (8.4 - 10.2 mg/dL) 8.3 L 8.3 L Phosphorus (2.5 - 4.5 mg/dL) 2.2 L 2.5 Magnesium (1.6 - 2.3 mg/dL) 2.2 1.9 Total Bilirubin (0.2 - 1.3 mg/dL) 0.2 0.2 AST (17 - 59 U/L) 14 L 11 L ALT (21 - 72 U/L) 25 29 Albumin (3.5 - 5.0 g/dL) 2.9 L 2.9 L Coagulation APTT (25 - 37 SEC) Pending 38 H Hematology CBC w Diff NO MAN DIFF REQ WBC (4.8 - 10.8 /CUMM) 7.5 RBC (4.70 - 6.10 /CUMM) 4.72 Hgb (14.0 - 18.0 G/DL) 13.3 L Hct (42 - 52 %) 39.5 L MCV (80.0 - 94.0 FL) 83.7 MCH (27.0 - 31.0 PG) 28.1 MCHC (33.0 - 37.0 G/DL) 33.6 RDW (11.5 - 14.5 %) 14.2 Plt Count (130 - 400 /CUMM) 170 MPV (7.4 - 10.4 FL) 10.7 H Gran % (42.2 - 75.2 %) 61.0 Lymphocytes % (20.5 - 51.1 %) 32.1 Monocytes % (1.7 - 9.3 %) 5.2 Eosinophils % (0 - 5 %) 1.0 Basophils % (0.0 - 2.0 %) 0.7 Absolute Granulocytes (1.4 - 6.5 /CUMM) 4.6 Absolute Lymphocytes (1.2 - 3.4 /CUMM) 2.4 Absolute Monocytes (0.10 - 0.60 /CUMM) 0.4 Absolute Eosinophils (0.0 - 0.7 /CUMM) 0.1 Absolute Basophils (0.0 - 0.2 /CUMM) 0.1 08/26 08/26 08/26 08/26 08/26 1845 1702 1505 1100 1100 Chemistry Sodium (137 - 145 mmol/L) Cancelled 140 140 Potassium (3.5 - 5.1 mmol/L) Cancelled 3.6 4.0 Chloride (98 - 107 mmol/L) Cancelled 115 H 106 Carbon Dioxide (22 - 30 mmol/L) Cancelled 17 L 17 L Anion Gap (5 - 16) Cancelled 8 17 H BUN (9 - 20 mg/dL) Cancelled 18 25 H Creatinine (0.7 - 1.2 mg/dL) Cancelled 0.5 L 0.8 Estimated GFR (>60 ml/min) > 60 > 60 Glucose (65 - 99 mg/dL) Cancelled 215 H 204 H Calcium (8.4 - 10.2 mg/dL) Cancelled 6.6 L 8.5 Phosphorus (2.5 - 4.5 mg/dL) Cancelled 2.1 L 3.2 Magnesium (1.6 - 2.3 mg/dL) Cancelled 1.6 1.9 Total Bilirubin (0.2 - 1.3 mg/dL) Cancelled 0.2 0.4 AST (17 - 59 U/L) Cancelled 10 L 10 L ALT (21 - 72 U/L) Cancelled 28 18 L Troponin I (<0.11 ng/ml) 0.69 *H Cancelled 0.95 *H Albumin (3.5 - 5.0 g/dL) Cancelled 2.3 L 3.3 L
[2017-08-27 09:24] LABS: PTT > 120 SEC (25-37)
--- NOTE | 2017-08-27 13:47 | PN- Att Addend ---
Attending Addendum Attending Brief Note Patient feeling and looking much better, the nausea and vomiting has resolved. The diabetic ketoacidosis also resolved on subcutaneous insulin Levemir and sliding scale, his potassium is 3.4 replace patient complaining of neuropathic leg pains patient was seen by endocrine appreciate input and recommendations. Troponins: 0.33, 0.77,0.95, 0.69. 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 to help him get medical insurance agency in stable hopefully will be able to leave the intensive care unit soon. Intake & Output 08/27 1600 08/27 0400 08/26 1600 08/26 0400 08/25 1600 08/25 0400 Intake Total 196.5 692 2037 3000 Output Total 251 859 8179 1000 Balance -403.5 -685 278 8225 Intake, IV 196.5 412 1397 3000 Intake, Oral 280 120 Intake, 520 TPN/PPN Number 0 Bowel Movements Output, Urine 159 002 3290 1000 Patient 200 lb 200 lb Weight Weight Reported by Patient Reported by Patient Measurement Method Current Medications Sig/Veto Start time Last Medication Dose Route Stop Time Status Admin Acetaminophen 650 MG Q6P PRN 08/26 0415 AC PO Aspirin 325 MG DAILY 08/26 1650 AC 08/27 PO 1219 Atorvastatin Calcium 80 MG 1700 02/ 1700 AC 08/26 PO 1736 Bismuth Subsalicylate 30 ML PCHS 08/26 0900 AC 08/27 PO 0734 Calcium 600 MG BID / 2200 AC 08/27 PO 1221 Cholecalciferol 1,000 IU DAILY 08/27 1000 AC 08/27 PO 1220 Clopidogrel Bisulfate 75 MG DAILY 08/26 1650 AC 08/27 PO 1219 Escitalopram Oxalate 20 MG DAILY 08/26 1000 AC / PO 1220 Guaifenesin 600 MG Q12 / 1000 AC / PO 1221 Heparin Sodium 5,000 UNIT .STK-MED ONE 08/27 0322 DC (Porcine) IV 08/27 0323 Heparin Sodium 5,442 UNIT BOLUS ONE 08/27 0156 DC 08/27 (Porcine) IV 08/27 0157 0345 Heparin Sodium 5,000 UNIT Q8 08/26 0600 DC 08/26 (Porcine) SC 1513 Heparin Sodium/ 25,000 UNIT Q24H / 1700 AC 08/26 Dextrose IV 1932 Dextrose/Water 500 ML Insulin Aspart 0 AC & AT BEDTIME 08/26 1800 AC 08/27 SC 1227 Insulin Detemir 20 UNITS BID 08/27 2200 AC SC Insulin Detemir 15 UNITS BID / 1000 DC SC Insulin Detemir 15 UNITS ONCE ONE 08/26 1745 DC 08/26 SC 08/26 1746 1758 Insulin Human Regular 1 UNITS .STK-MED ONE 08/26 1749 DC IV 08/26 1750 Insulin Human Regular 100 UNIT Q24H 08/26 0500 DC 08/26 Sodium Chloride 100 ML IV 0528 Lidocaine 1 PAT DAILY NEEDED PRN 08/26 0630 AC EXT Metoclopramide HCl 10 MG Q6P PRN 08/26 0830 AC 08/26 IV 0916 Metoprolol Tartrate 37.5 MG BID 08/26 1000 AC 08/27 PO 1224 Nitroglycerin 0.5 GM Q6 08/26 1800 AC 08/27 TOP 1226 Pantoprazole Sodium 40 MG DAILY 08/26 1000 AC 08/27 IV 1226 Potassium Chloride 40 MEQ ONCE ONE 08/27 1200 DC 02/04 PO 04 1201 1218 Potassium Chloride 20 MEQ Q6H 08/26 1030 DC 08/26 Dextrose/Sodium 1,000 ML IV 1125 Chloride Laboratory Tests 08/27/17 0810: APTT > 120 *H 08/27/17 0430: Anion Gap 14, Estimated GFR > 60, Glucose 362 H, Calcium 8.3 L, Phosphorus 2.2 L, Magnesium 2.2, Total Bilirubin 0.2, AST 14 L, ALT 25, Albumin 2.9 L, CBC w Diff NO MAN DIFF REQ, RBC 4.72, MCV 83.7, MCH 28.1, MCHC 33.6, RDW 14.2, MPV 10.7 H, Gran % 61.0, Lymphocytes % 32.1, Monocytes % 5.2, Eosinophils % 1.0, Basophils % 0.7, Absolute Granulocytes 4.6, Absolute Lymphocytes 2.4, Absolute Monocytes 0.4, Absolute Eosinophils 0.1, Absolute Basophils 0.1 08/27/17 0100: APTT 38 H 08/26/170: Anion Gap 13, Estimated GFR > 60, Glucose 285 H, Calcium 8.3 L, Phosphorus 2.5 , Magnesium 1.9, Total Bilirubin 0.2, AST 11 L, ALT 29, Albumin 2.9 L 08/26/17 1845: Troponin I 0.69 *H 08/26/17 1702: Sodium Cancelled, Potassium Cancelled, Chloride Cancelled, Carbon Dioxide Cancelled, Anion Gap Cancelled, BUN Cancelled, Creatinine Cancelled, Glucose Cancelled, Calcium Cancelled, Phosphorus Cancelled, Magnesium Cancelled, Total Bilirubin Cancelled, AST Cancelled, ALT Cancelled, Albumin Cancelled 08/26/17 1505: Anion Gap 8, Estimated GFR > 60, Glucose 215 H, Calcium 6.6 L, Phosphorus 2.1 L, Magnesium 1.6, Total Bilirubin 0.2, AST 10 L, ALT 28, Albumin 2.3 L 08/26/17 1100: Troponin I Cancelled 08/26/17 1100: Anion Gap 17 H, Estimated GFR > 60, Glucose 204 H, Calcium 8.5, Phosphorus 3.2 , Magnesium 1.9, Total Bilirubin 0.4, AST 10 L, ALT 18 L, Troponin I 0.95 *H, Albumin 3.3 L 08/26/17 0640: Anion Gap 24 H, Estimated GFR > 60, Glucose 260 H, Calcium 8.9, Phosphorus 3.7 , Magnesium 2.0, Total Bilirubin 0.4, AST 11 L, ALT 26, Troponin I 0.77 *H, Albumin 4.0 08/26/17 0503: Anion Gap 26 H, Estimated GFR > 60, Glucose 300 H, Calcium 8.9, Phosphorus 4.5 , Magnesium 1.9, Total Bilirubin 0.4, AST 12 L, ALT 31, Albumin 4.1, CBC w Diff NO MAN DIFF REQ, RBC 5.34, MCV 84.7, MCH 28.0, MCHC 33.0, RDW 13.9, MPV 10.8 H, Gran % 87.2 H, Lymphocytes % 10.0 L, Monocytes % 2.5, Eosinophils % 0, Basophils % 0.3, Absolute Granulocytes 13.4 H, Absolute Lymphocytes 1.5, Absolute Monocytes 0.4, Absolute Eosinophils 0, Absolute Basophils 0 08/26/17 0440: Sodium Cancelled, Potassium Cancelled, Chloride Cancelled, Carbon Dioxide Cancelled, Anion Gap Cancelled, BUN Cancelled, Creatinine Cancelled, BUN/ Creatinine Ratio Cancelled 08/26/17 0236: Urine Osmolality 677 08/26/17 0236: Urine Color YEL, Urine Clarity HAZY H, Urine pH 5.5, Ur Specific [place] >= 1.030, Urine Protein 30 H, Urine Ketones >=80, Urine Nitrite NEG, Urine Bilirubin NEG@ICTO, Urine Urobilinogen 0.2, Ur Leukocyte Esterase NEG, Ur Microscopic SEDIMENT EXAMINED, Urine RBC RARE, Urine WBC 1-3 H, Ur Epithelial Cells FEW, Urine Bacteria FEW H, Micro UA Comment B[place] YEAST H, Urine Hemoglobin TRACE-INTACT H, Urine Glucose >=1000 H 08/25/17 2300: Anion Gap 36 H, Estimated GFR > 60, BUN/Creatinine Ratio 26.4 H, Glucose 578 * H, Serum Osmolality 333 H, Calcium 9.8, Total Bilirubin 0.6, AST 14 L, ALT 19 L, Alkaline Phosphatase 141 H, Troponin I 0.33 *H, Total Protein 7.6, Albumin 4.7, Globulin 2.9, Albumin/Globulin Ratio 1.6, Lipase 84, CBC w Diff NO MAN DIFF REQ, RBC 5.74, MCV 85.2, MCH 28.0, MCHC 32.8 L, RDW 14.0, MPV 10.7 H, Gran % 90.7 H, Lymphocytes % 7.4 L, Monocytes % 1.7, Eosinophils % 0, Basophils % 0.2 , Absolute Granulocytes 12.8 H, Absolute Lymphocytes 1.0 L, Absolute Monocytes 0.2, Absolute Eosinophils 0, Absolute Basophils 0, Serum Alcohol < 10.0, Acetone Level POSITIVE AT 1:16 DIL 08/25/174: Serum Osmolality Cancelled, Acetone Level Cancelled Microbiology 08/26 829 BLOOD: Blood Culture - RES 08/26 814 BLOOD: Blood Culture - RES 08/26 538 NASOPHARYN: Influenza Virus A & B Rapid Smear - COLB 08/26 527 URINE ROUT: Urine Culture - COLB 08/26 414 UPPER RESP: Surveillance Culture - COMP Microbiology 08/26 829 BLOOD: Blood Culture - RES 08/26 814 BLOOD: Blood Culture - RES 08/26 538 NASOPHARYN: Influenza Virus A & B Rapid Smear - COLB 08/26 527 URINE ROUT: Urine Culture - COLB 08/26 414 UPPER RESP: Surveillance Culture - COMP Vital Signs Date Time Temp Pulse Resp B/P B/P Pulse O2 O2 Flow FiO2 Mean Ox Delivery Rate 08/27 1224 100 168/90 08/27 0800 97 Room Air 08/27 0800 97.9 89 18 151/84 98 Room Air 08/27 0400 Nasal 2.0L Cannula 08/27 0000 98 Nasal 2.0L Cannula 08/26 2359 98.1 77 17 130/78 98 Nasal 2.0L Cannula 08/26 2135 98.2 96 17 142/78 08/26 2000 100 Nasal 2.0L Cannula 08/26 1600 100 Nasal 2.0L Cannula 08/26 1600 98.2 88 17 144/86 100 Nasal 2.0L Cannula
--- NOTE | 2017-08-27 14:16 | PN- Cardiology ---
Subjective Subjective: * No active chest discomfort. * sinus rhythm * potassium is 3.4 * troponin is trending down Objective Vital Signs and I&Os Vital Signs Date Time Temp Pulse Resp B/P B/P Pulse O2 O2 Flow FiO2 Mean Ox Delivery Rate 08/27 1224 100 168/90 08/27 0800 97 Room Air 08/27 08 97.9 89 18 151/84 98 Room Air 08/27 0400 Nasal 2.0L Cannula 08/27 0000 98 Nasal 2.0L Cannula 08/26 2359 98.1 77 17 130/78 98 Nasal 2.0L Cannula 08/26 2135 98.2 96 17 142/78 08/26 2000 100 Nasal 2.0L Cannula 08/26 1600 100 Nasal 2.0L Cannula 08/26 1600 98.2 88 17 144/86 100 Nasal 2.0L Cannula Intake & Output 08/27 1600 08/27 0800 / 0000 08/26 1600 08/26 0800 02 0000 Intake Total 196.5 692 1517 3520 Output Total 600 684 331 7623 Balance -403.5 -337 898 7708 Intake, IV 196.5 412 1397 3000 Intake, Oral 280 120 Intake, 520 TPN/PPN Number 0 Bowel Movements Output, Urine 600 886 358 3594 Patient 200 lb 185 lb 200 lb Weight Weight Reported by Patient Reported by Patient Measurement Method Physical Exam: General: WD/WN male in NAD; alert and oriented x 3 Neck: no JVD, no carotid bruit Heart: RRR w/o murmur, positive S4 Lungs: clear bilaterally Extremties: no edema Assessment/Plan Assessment/Plan * This patient had nausea and vomiting that was likely related to his DKA although nausea is certainly a symptom that can occur with myocardial ischemia. In addition, DKA can be precipitated by myocardial ischemia or an MN but in this case the patient was not taking his medications which was a more likely cause of his DKA. Over the past couple weeks this patient has had chest pain and now demonstrate T wave inversions and positive cardiac enzymes consistent with a NSTEMI. * Normal EF on echocardiogram. * Continue IV heparin, aspirin 325mg daily and Plavix 75mg daily. Continue Lipitor and Metoprolol as currently prescribed. Begin NTG paste 1/2 inch Q6 hrs. Continue telemetry? Yes
--- NOTE | 2017-08-27 14:20 | Transfer of Care Summary ---
Hospital Course Course Hospital Course: Ms Kim is a 62-year-old gentleman w/ a PMHx of insulin-dependent diabetes ( dx'ed 20 yrs ago, follows w/ Dr. Armendariz at [place]) , CAD s/p CABG x 3 , HTN, and STEMI who came in with a chief concern of 2 week history of nonproductive cough and 3 day history of nausea, vomiting, poor appetite prior the admission, and was found to have high blood glucose associated w/ anion gap metabolic acidosis with postive acetone. Reason for ICU admission: DKA. HPI: Ms Kim is a 62-year-old gentleman w/ a PMHx of insulin-dependent diabetes ( dx'ed 20 yrs ago, follows w/ Dr. Armendariz at [place]) , CAD s/p CABG x 3 , HTN, and STEMI who came in with a chief concern of 2 week history of nonproductive cough and 3 day history of nausea, vomiting, poor appetite prior the admission, and was found to have high blood glucose associated w/ anion gap metabolic acidosis with postive acetone. He takes levemir 30 units BID, along with Humalog sliding scale, and Victoza. At the time of presentation, blood was glucose 578 BUN 29 creatinine 1.1 sodium 135 potassium 5.5, chloride 92, carbon dioxide 7, anion gap 36, acetone +1 troponin elevated at 0.33( which peaked at 0.95) with some mild T wave inversions. He was admitted to ICU for the management of diabeteic ketoacidosis. BS ranged around 200-300s. He was intitially started on insulin drip, which was transitioned to sc insulin ( levemir 20 units BID and novolog sliding scale), after the resolution of anion gap. In regards to his cardiac history, he reported moderate non exertional precordial chest discomfort which radiated to the back over the same period of time which he initially attributed to heartburn. He was ruled in for an KY by cardiac enzymes. Etiology in his case was likely non-compliance, or KY. He was started on IV heparin, ASA 325mg daily and Clopidogrel 75mg daily, and was continued on atorvastatin and Metoprolol at his home doses. Other causes, such as DVT in LE was ruled out. Mechanical ventilation: No NIPPV: No Antibiotics- none. Catheter- iv cath, no central line Adan cath- none Diet- CC3 diet. DVT Ppx- heparin sc. Code status: DNR/DNI. Assessment/Plan: as dorota
--- NOTE | 2017-08-27 14:42 | ULTRASOUND REPORT ---
EXAMINATION: US TRIPLEX OF LOWER EXTREMITIES, BILATERAL CLINICAL INFORMATION: Pain and swelling both lower extremities. COMPARISON: None TECHNIQUE: Color-flow triplex imaging with spectral analysis and compression Doppler were performed on the lower extremities. FINDINGS: Respiratory variation, normal compression and augmented flow are noted throughout the lower extremities. The visualized common femoral vein, superficial femoral vein, profunda femoral vein, popliteal vein and midcalf peroneal and posterior tibial venous segments show no evidence of deep venous thrombosis. There is no Gaitan's cyst. IMPRESSION: Normal triplex scan without evidence of deep venous thrombosis involving the lower extremities.
[2017-08-27 16:00] VITALS: BP 110/70
[2017-08-27 16:02] LABS: PTT 41 SEC (25-37)
[2017-08-27 23:06] LABS: PTT 60 SEC (25-37)
[2017-08-28 00:31] VITALS: BP 156/80
[2017-08-28 07:02] VITALS: BP 168/94
--- NOTE | 2017-08-28 07:36 | ECHOCARDIOGRAM REPORT ---
VJ ESPINOSA Age: 62 : 1955 Gender: M Exam Date: 08/27/2017 08:58 Exam Location: [facility] Ht (in): 70 Wt (lb): 199 BSA: 2.13 BP: 130 / 78 Ordering Physician: Pedro Merino MD Referring Physician: Primitivo Altman MD, PhD Technologist: Starr Rodriguez [facility] [place] Room Number: 105 Indications: LV FUNCTION AFTER ACS Rhythm: Sinus Technical Quality: good FINDINGS Left Ventricle Normal left ventricular size with moderate left ventricular hypertrophy. Normal systolic function with no obvious regional wall motion abnormalities. Diastolic filling pattern is consistent with impaired LV relaxation. The ejection fraction is visually estimated at 70%. Right Ventricle The right ventricle is normal in size and function. Right Atrium The right atrium is normal in size. Left Atrium The left atrium is mildly enlarged. The interatrial septum is intact. Mitral Valve The mitral valve is normal in structure and function. There is no mitral regurgitation. Aortic Valve Mildly thickened aortic valve without significant sclerosis or stenosis. There is no aortic regurgitation. Tricuspid Valve The tricuspid valve is normal in structure and function. There is trace tricuspid regurgitation. Pulmonary artery systolic pressure is normal. Pulmonic Valve Structurally normal pulmonic valve. There is trace pulmonic regurgitation. Pericardium Normal pericardium without effusion. No pleural effusion. Great Vessels Normal aortic root dimension. The aortic arch and great vessels are well seen and are normal. CONCLUSIONS 1. Normal EF of 70% with impaired LV relaxation. 2. Moderate left ventricular hypertrophy. 3. Mild left atrial enlargement. 4. Trace tricuspid regurgitation. 5. Trace pulmonic regurgitation. Primitivo Altman M.D. (Electronically Signed) Final Date: 28 August 2017 07:36 MEASUREMENTS (Male / Female) Normal Values 2D ECHO LV Diastolic Diameter PLAX 3.2 cm 4.2 - 5.9 / 3.9 - 5.3 cm LV Systolic Diameter PLAX 2.2 cm 2.1 - 4.0 cm LV Fractional Shortening PLAX 31.3 % 25 - 46 % LV Ejection Fraction 2D Teich 60.4 % IVS Diastolic Thickness 1.6 cm LVPW Diastolic Thickness 1.5 cm LV Relative Wall Thickness 1.0 RV Internal Dim ED PLAX 2.8 cm 1.9 - 3.8 cm LVOT Diameter 2.1 cm Aortic Root Diameter 3.8 cm LA Systolic Diameter LX 4.2 cm 3.0 - 4.0 / 2.7 - 3.8 cm LA Volume 54.0 cm 18 - 58 / 22 - 52 cm Ascending Aorta Diameter 3.6 cm DOPPLER AV Peak Velocity 122.0 cm/s AV Peak Gradient 6.0 mmHg AV Mean Velocity 90.7 cm/s AV Mean Gradient 4.0 mmHg AV Velocity Time Integral 22.3 cm LVOT Peak Velocity 85.7 cm/s LVOT Peak Gradient 2.9 mmHg LVOT Mean Velocity 60.7 cm/s LVOT Mean Gradient 2.0 mmHg LVOT Velocity Time Integral 16.2 cm LVOT Stroke Volume 56.1 cm AV Area Cont Eq vti 2.5 cm AV Area Cont Eq pk 2.4 cm MV Peak Velocity 84.5 cm/s MV Peak Gradient 2.9 mmHg MV Mean Velocity 49.4 cm/s MV Mean Gradient 1.0 mmHg Mitral E Point Velocity 63.2 cm/s Mitral A Point Velocity 75.5 cm/s Mitral E to A Ratio 0.8 MV PHT Velocity 63.3 cm/s MV Deceleration Hinds 314.0 cm/s MV Pressure Half Time 60.5 ms MV Area PHT 3.6 cm MV Deceleration Time 367.0 ms TR Peak Velocity 109.0 cm/s TR Peak Gradient 4.8 mmHg Right Atrial Pressure 5.0 mmHg Pulmonary Artery Systolic Pressu 9.8 mmHg Right Ventricular Systolic Press 9.8 mmHg PV Peak Velocity 88.9 cm/s PV Peak Gradient 3.2 mmHg PV Mean Velocity 64.6 cm/s PV Mean Gradient 2.0 mmHg PV Velocity Time Integral 17.8 cm LV E' Lateral Velocity 9.5 cm/s Mitral E to LV E' Lateral Ratio 6.7 LV E' Septal Velocity 5.8 cm/s Mitral E to LV E' Septal Ratio 11.0
--- NOTE | 2017-08-28 07:58 | PN- Housestaff ---
Subjective Follow-up For: DKA Elevated trops -demand ischemia vs NSTEMI Subjective: Patient was seen and examined today. Patient denies any nausea vomiting, constipation/diarrhea, abdominal pain, chest pain, shortness of breath. States he is eating well. Patient's blood glucose this morning was 220. Patient missed his dose of Levemir yesterday- reason is not known. Patient is concerned about his financial issues and would like to speak to a outreach and education social worker in private. No acute events overnight. Review of Systems Constitutional: Reports: no symptoms. Cardiovascular: Reports: no symptoms. Respiratory: Reports: no symptoms. Gastrointestinal: Reports: no symptoms. Genitourinary: Reports: no symptoms. Musculoskeletal: Reports: no symptoms. Neurological/Psychological: Reports: no symptoms. Objective Last 24 Hrs of Vital Signs/I&O Vital Signs Date Time Temp Pulse Resp B/P B/P Pulse O2 O2 Flow FiO2 Mean Ox Delivery Rate 08/28 0702 98.3 76 20 168/94 95 Room Air 08/28 0031 99.0 87 20 156/80 94 Room Air 08/27 2242 85 156/80 08/27 1600 98.0 69 20 110/70 98 Room Air / 1600 97 Room Air Intake & Output 08/28 1600 /05 0800 02/05 0000 Intake Total 220 82 Output Total 1200 Balance -980 82 Intake, IV 220 82 Number 1 Bowel Movements Output, Urine 1200 Physical Exam General Appearance: Alert, Oriented X3, Cooperative, No Acute Distress Skin Temp/Moisture Exam: Warm/Dry HEENT: Atraumatic, Mucous Membr. moist/pink Cardiovascular: Regular Rate, Normal S1, Normal S2 Lungs: Clear to Auscultation, Normal Air Movement Abdomen: Normal Bowel Sounds, Soft, No Tenderness Extremities: No Clubbing, No Cyanosis, No Edema, Normal Pulses, No Tenderness/ Swelling Current Medications: Current Medications Sig/Veto Start time Last Medication Dose Route Stop Time Status Admin Acetaminophen 650 MG Q6P PRN 08/26 0415 AC 08/28 PO 0942 Aspirin 325 MG DAILY 08/26 1650 AC 08/28 PO 0924 Atorvastatin Calcium 80 MG 1700 08/26 1700 AC 08/27 PO 1701 Bismuth Subsalicylate 30 ML PCHS 08/26 0900 AC 08/27 PO 0734 Calcium 600 MG BID 08/26 2200 AC 02/05 PO 0924 Cholecalciferol 1,000 IU DAILY 08/27 1000 AC 08/28 PO 0924 Clopidogrel Bisulfate 75 MG DAILY 08/26 1650 AC 08/28 PO 0924 Escitalopram Oxalate 20 MG DAILY 08/26 1000 AC 08/28 PO 0924 Guaifenesin 600 MG Q12 08/26 1000 AC 08/28 PO 0925 Heparin Sodium 10,000 UNIT .STK-MED ONE 08/27 1653 DC (Porcine) IV 08/27 1654 Heparin Sodium/ 25,000 UNIT Q24H 08/26 1700 DC 08/27 Dextrose IV 1705 Dextrose/Water 500 ML Insulin Aspart 0 AC & AT BEDTIME 08/26 1800 AC 08/28 SC 1246 Insulin Detemir 20 UNITS BID 08/27 2200 AC 08/28 SC 0842 Isosorbide 60 MG DAILY 08/28 1315 AC Mononitrate PO Lidocaine 1 PAT DAILY NEEDED PRN 08/26 0630 AC EXT Lisinopril 10 MG DAILY 08/28 1330 AC PO Metoclopramide HCl 10 MG Q6P PRN 08/26 0830 AC 08/26 IV 0916 Metoprolol Tartrate 37.5 MG BID 08/26 1000 AC 08/28 PO 0926 Nitroglycerin 0.5 GM Q6 08/26 1800 DC 08/28 TOP 1246 Pantoprazole Sodium 40 MG DAILY 08/26 1000 AC 08/28 IV 0924 Potassium Chloride 60 MEQ ONCE ONE 08/28 1315 DC PO 08/28 1316 Last 24 Hrs of Lab/Nghia Results Last 24 Hrs of Labs/Mics: Laboratory Tests 08/28/17 0655: Anion Gap 11, Estimated GFR > 60, BUN/Creatinine Ratio 30.0 H, CBC w Diff NO MAN DIFF REQ, RBC 4.59 L, MCV 83.2, MCH 28.1, MCHC 33.8, RDW 13.4, MPV 10.5 H, Gran % 45.4, Lymphocytes % 44.2, Monocytes % 6.8, Eosinophils % 2.6, Basophils % 1.0, Absolute Granulocytes 2.6, Absolute Lymphocytes 2.5, Absolute Monocytes 0.4 , Absolute Eosinophils 0.1, Absolute Basophils 0.1, CARLTON Antibody Pending 08/27/17 2205: APTT 60 H 08/27/17 1520: APTT 41 H Assessment/Plan Assessment: Patient is a 62 y/o male with PMH of insulin dependent diabetes (diagnosed 20 years prior) follows with Dr. Armendariz at [place], CAD s/p CABG x 3 and STEMI, and HTN presenting with chief complain of 2 weeks of nonproductive cough and 3 day history of nausea, vomiting, and poor appetite. On admission patient was found to have high blood glucose associated w/ anion gap metabolic acidosis with postive acetone and was initially admitted to ICU for management of DKA. Started on an insulin drip. Patient also reported chest pain radiating to back and was found to have elevated trops with mild T wave inversions and was started on IV heparin, ASA 325mg daily and clopidogrel 75mg daily, and was continued on atorvastatin and metoprolol at his home doses. Today patient's sugars remain elevated as he missed his levemir dose for unknown reasons. Patient was seen by endocrinology and will be maintained on the same insulin regimen. Patient was seen by cardiology today and IV heparin and nitroglycerin were discontinued. Likely patient's elevated trops and mild EKG changes are due to demand ischemia secondary to the DKA. Patient is currently asymptomatic 1. DKA 2. Elevated trops 3. Hypokalemia - cardiology on board - heparin discontinued - nitroglycerin discontinued - restarted imdur - continued metoprolol - started on lisinopril 10mg daily - potassium repleted - continue current insulin regimen per endocrinology - continue accuchecks TIDAC and qHS - will repeat BEP in AM - social work consulted for patient's financial and insurance related concerns DVT PPx: heparin Diet: diabetic diet Code: Full code Dispo: discharge home tomorrow pending stable blood sugars, with close follow up with endocrinology and cardiology Problem List: 1. DKA (diabetic ketoacidoses) 2. Elevated troponin 3. Acute electrocardiogram changes Pain Ratin Pain Location: n/a Pain Goal: Remain pain free Pain Plan: n/a Tomorrow's Labs & Rationales: BEP - hypokalemia
--- NOTE | 2017-08-28 08:00 | PN- Diabetes ---
Assessment/Plan Assessment: This 62-year-old male came into the hospital with evidence of diabetic ketoacidosis. Last night he was converted from the insulin drip to subcu insulin. He is presently on Levemir 20 units twice a day and sliding scale NovoLog. Patient missed a dose of Levemir yesterday morning and his sugars were high. Eventually by bedtime they came down to 272. This morning his fingerstick blood sugar is 220 but the patient already began eating. The patient states he feels improved. He has had no further nausea vomiting. The patient feels depressed because she underwent a recent divorce and also has lost his job. He states he suffers from severe diabetic neuropathy. He does have some pain in his left calf. Plan: Suggest continue the present insulin. Today will be the first day the full insulin regimen as he missed a dose of Levemir yesterday morning for unknown reasons. We should observe his blood sugars today and further changes in his insulin regimen may be necessary. Subjective Subjective: Feels improved Review of Systems Constitutional: Denies: chills, fever. Cardiovascular: Denies: chest pain. Respiratory: Denies: short of breath. Gastrointestinal: Denies: abdominal pain, nausea, vomiting. Musculoskeletal: Denies: back pain. Objective Last 24 Hrs of Vital Signs/I&O Vital Signs Date Time Temp Pulse Resp B/P B/P Pulse O2 O2 Flow FiO2 Mean Ox Delivery Rate 08/28 0702 98.3 76 20 168/94 95 Room Air 08/28 0031 99.0 87 20 156/80 94 Room Air 08/27 2242 85 156/08/27 1600 98.0 69 20 110/70 98 Room Air 02/04 1600 97 Room Air 02/ 1224 100 168/90 02/04 0800 97 Room Air 02/ 0800 97.9 89 18 151/84 98 Room Air Intake & Output / 0800 02/05 0000 02/04 1600 Intake Total 82 629 Output Total 1200 Balance 82 -571 Intake, IV 82 149 Intake, Oral 480 Number 1 0 Bowel Movements Output, Urine 1200 Vital Signs Date Time Temp Pulse Resp B/P B/P Pulse O2 O2 Flow FiO2 Mean Ox Delivery Rate 08/28 0702 98.3 76 20 168/94 95 Room Air 08/28 0031 99.0 87 20 156/80 94 Room Air 08/27 2242 85 156/80 02/ 1600 98.0 69 20 110/70 98 Room Air 02/ 1600 97 Room Air / 1224 100 168/90 / 0800 97 Room Air / 0800 97.9 89 18 151/84 98 Room Air Intake & Output 02/ 0800 02/05 0000 / 1600 Intake Total 82 629 Output Total 1200 Balance 82 -571 Intake, IV 82 149 Intake, Oral 480 Number 1 0 Bowel Movements Output, Urine 1200 Physical Exam General Appearance: alert, awake, comfortable Neck: normal inspection Respiratory: normal breath sounds Cardiovascular: regular rate/rhythm Abdomen: normal bowel sounds Extremities: normal inspection Current Medications: Current Medications Sig/Veto Start time Last Medication Dose Route Stop Time Status Admin Acetaminophen 650 MG Q6P PRN 08/26 0415 AC PO Aspirin 325 MG DAILY 08/26 1650 AC 08/27 PO 1219 Atorvastatin Calcium 80 MG 1700 08/26 1700 AC 08/27 PO 1701 Bismuth Subsalicylate 30 ML PCHS 08/26 0900 AC 08/27 PO 0734 Calcium 600 MG BID 08/26 2200 AC 08/27 PO 2242 Cholecalciferol 1,000 IU DAILY / 1000 AC 08/27 PO 1220 Clopidogrel Bisulfate 75 MG DAILY / 1650 AC 08/27 PO 1219 Escitalopram Oxalate 20 MG DAILY / 1000 AC 08/27 PO 1220 Guaifenesin 600 MG Q12 / 1000 AC 08/27 PO 2242 Heparin Sodium 10,000 UNIT .STK-MED ONE 08/27 1653 DC (Porcine) IV 08/27 1654 Heparin Sodium/ 25,000 UNIT Q24H / 1700 AC 02/ Dextrose IV 1705 Dextrose/Water 500 ML Insulin Aspart 0 AC & AT BEDTIME 08/26 1800 AC 08/27 SC 2250 Insulin Detemir 20 UNITS BID 08/27 2200 AC 08/27 SC 2250 Insulin Detemir 15 UNITS BID 08/27 1000 DC SC Lidocaine 1 PAT DAILY NEEDED PRN 08/26 0630 AC EXT Metoclopramide HCl 10 MG Q6P PRN 08/26 0830 AC 08/26 IV 0916 Metoprolol Tartrate 37.5 MG BID / 1000 AC 02 PO 2242 Nitroglycerin 0.5 GM Q6 08/26 1800 AC 02 TOP 0655 Pantoprazole Sodium 40 MG DAILY 08/26 1000 AC 08/27 IV 1226 Potassium Chloride 40 MEQ ONCE ONE 08/27 1200 DC 08/27 PO 08/27 1201 1218 Findings Pertinent Lab/Nghia Results: Laboratory Tests 08/28 08/27 08/27 08/27 0655 2205 1520 0810 Chemistry Sodium Pending Potassium Pending Chloride Pending Carbon Dioxide Pending Anion Gap Pending BUN Pending Creatinine Pending BUN/Creatinine Ratio Pending Coagulation APTT (25 - 37 SEC) 60 H 41 H > 120 *H Hematology CBC w Diff Pending WBC Pending RBC Pending Hgb Pending Hct Pending MCV Pending MCH Pending MCHC Pending RDW Pending Plt Count Pending MPV Pending Immunology CARLTON Antibody Pending
[2017-08-28 08:16] LABS: ABSOLUTE BASOPHIL COUNT 0.1 /CUMM (0.0-0.2); ABSOLUTE EOSINOPHIL COUNT 0.1 /CUMM (0.0-0.7); ABSOLUTE GRANULOCYTE CT 2.6 /CUMM (1.4-6.5); ABSOLUTE LYMPH COUNT 2.5 /CUMM (1.2-3.4); ABSOLUTE MONOCYTE COUNT 0.4 /CUMM (0.10-0.60); EOSINOPHIL % 2.6 % (0-5); GRANULOCYTE % 45.4 % (42.2-75.2); HEMATOCRIT 38.2 % (42-52); MEAN CORPUSCULAR HGB 28.1 PG (27.0-31.0); MEAN CORPUSCULAR HGB CONC 33.8 G/DL (33.0-37.0); MEAN CORPUSCULAR VOLUME 83.2 FL (80.0-94.0); MEAN PLATELET VOLUME 10.5 FL (7.4-10.4); PLATELET COUNT 139 /CUMM (130-400); RBC DISTRIBUTION WIDTH 13.4 % (11.5-14.5); RED BLOOD CELL CT 4.59 /CUMM (4.70-6.10); WHITE BLOOD CELL COUNT 5.7 /CUMM (4.8-10.8)
--- NOTE | 2017-08-28 10:37 | PN- Att Addend ---
Attending Addendum Attending Brief Note Patient feeling and looking much better. Not sugars under better control with endocrine and recommendations. Patient still on a heparin drip, which check with cardiology if it can be discontinued my patient is on Plavix and aspirin and on nitroglycerin patches. Also check if cardiology wants to do anymore testing i.e. cardiac catheterization. Also get patient out of bed and most important have social work specialist evaluate the patient economical situation. Intake & Output 08/28 Intake Total 220 82 825.5 692 2037 3000 Output Total 1200 4494 562 5438 1000 Balance -980 82 -974.5 -264 974 7506 Intake, IV 220 82 345.5 412 1397 3000 Intake, Oral 480 280 120 Intake, 520 TPN/PPN Number 1 0 0 Bowel Movements Output, Urine 1200 9645 076 3539 1000 Patient 200 lb 200 lb Weight Weight Reported by Patient Reported by Patient Measurement Method Laboratory Tests 08/28/17 0655: Anion Gap 11, Estimated GFR > 60, BUN/Creatinine Ratio 30.0 H, CBC w Diff NO MAN DIFF REQ, RBC 4.59 L, MCV 83.2, MCH 28.1, MCHC 33.8, RDW 13.4, MPV 10.5 H, Gran % 45.4, Lymphocytes % 44.2, Monocytes % 6.8, Eosinophils % 2.6, Basophils % 1.0, Absolute Granulocytes 2.6, Absolute Lymphocytes 2.5, Absolute Monocytes 0.4 , Absolute Eosinophils 0.1, Absolute Basophils 0.1, [place] Antibody Pending 08/27/17 2205: APTT 60 H 08/27/17 1520: APTT 41 H 08/27/17 0810: APTT > 120 *H 08/27/17 0430: Anion Gap 14, Estimated GFR > 60, Glucose 362 H, Calcium 8.3 L, Phosphorus 2.2 L, Magnesium 2.2, Total Bilirubin 0.2, AST 14 L, ALT 25, Albumin 2.9 L, CBC w Diff NO MAN DIFF REQ, RBC 4.72, MCV 83.7, MCH 28.1, MCHC 33.6, RDW 14.2, MPV 10.7 H, Gran % 61.0, Lymphocytes % 32.1, Monocytes % 5.2, Eosinophils % 1.0, Basophils % 0.7, Absolute Granulocytes 4.6, Absolute Lymphocytes 2.4, Absolute Monocytes 0.4, Absolute Eosinophils 0.1, Absolute Basophils 0.1 08/27/17 0100: APTT 38 H 08/26/17 2120: Anion Gap 13, Estimated GFR > 60, Glucose 285 H, Calcium 8.3 L, Phosphorus 2.5 , Magnesium 1.9, Total Bilirubin 0.2, AST 11 L, ALT 29, Albumin 2.9 L 08/26/17 1845: Troponin I 0.69 *H 08/26/17 1702: Sodium Cancelled, Potassium Cancelled, Chloride Cancelled, Carbon Dioxide Cancelled, Anion Gap Cancelled, BUN Cancelled, Creatinine Cancelled, Glucose Cancelled, Calcium Cancelled, Phosphorus Cancelled, Magnesium Cancelled, Total Bilirubin Cancelled, AST Cancelled, ALT Cancelled, Albumin Cancelled 08/26/17 1505: Anion Gap 8, Estimated GFR > 60, Glucose 215 H, Calcium 6.6 L, Phosphorus 2.1 L, Magnesium 1.6, Total Bilirubin 0.2, AST 10 L, ALT 28, Albumin 2.3 L 08/26/17 1100: Troponin I Cancelled 08/26/17 1100: Anion Gap 17 H, Estimated GFR > 60, Glucose 204 H, Calcium 8.5, Phosphorus 3.2 , Magnesium 1.9, Total Bilirubin 0.4, AST 10 L, ALT 18 L, Troponin I 0.95 *H, Albumin 3.3 L 08/26/17 0640: Anion Gap 24 H, Estimated GFR > 60, Glucose 260 H, Calcium 8.9, Phosphorus 3.7 , Magnesium 2.0, Total Bilirubin 0.4, AST 11 L, ALT 26, Troponin I 0.77 *H, Albumin 4.0 08/26/17 0503: Anion Gap 26 H, Estimated GFR > 60, Glucose 300 H, Calcium 8.9, Phosphorus 4.5 , Magnesium 1.9, Total Bilirubin 0.4, AST 12 L, ALT 31, Albumin 4.1, CBC w Diff NO MAN DIFF REQ, RBC 5.34, MCV 84.7, MCH 28.0, MCHC 33.0, RDW 13.9, MPV 10.8 H, Gran % 87.2 H, Lymphocytes % 10.0 L, Monocytes % 2.5, Eosinophils % 0, Basophils % 0.3, Absolute Granulocytes 13.4 H, Absolute Lymphocytes 1.5, Absolute Monocytes 0.4, Absolute Eosinophils 0, Absolute Basophils 0 08/26/17 0440: Sodium Cancelled, Potassium Cancelled, Chloride Cancelled, Carbon Dioxide Cancelled, Anion Gap Cancelled, BUN Cancelled, Creatinine Cancelled, BUN/ Creatinine Ratio Cancelled 08/26/17 0236: Urine Osmolality 677 08/26/17 0236: Urine Color YEL, Urine Clarity HAZY H, Urine pH 5.5, Ur Specific [place] >= 1.030, Urine Protein 30 H, Urine Ketones >=80, Urine Nitrite NEG, Urine Bilirubin NEG@ICTO, Urine Urobilinogen 0.2, Ur Leukocyte Esterase NEG, Ur Microscopic SEDIMENT EXAMINED, Urine RBC RARE, Urine WBC 1-3 H, Ur Epithelial Cells FEW, Urine Bacteria FEW H, Micro UA Comment [place] H, Urine Hemoglobin TRACE-INTACT H, Urine Glucose >=1000 H 08/25/17 2300: Anion Gap 36 H, Estimated GFR > 60, BUN/Creatinine Ratio 26.4 H, Glucose 578 * H, Serum Osmolality 333 H, Calcium 9.8, Total Bilirubin 0.6, AST 14 L, ALT 19 L, Alkaline Phosphatase 141 H, Troponin I 0.33 *H, Total Protein 7.6, Albumin 4.7, Globulin 2.9, Albumin/Globulin Ratio 1.6, Lipase 84, CBC w Diff NO MAN DIFF REQ, RBC 5.74, MCV 85.2, MCH 28.0, MCHC 32.8 L, RDW 14.0, MPV 10.7 H, Gran % 90.7 H, Lymphocytes % 7.4 L, Monocytes % 1.7, Eosinophils % 0, Basophils % 0.2 , Absolute Granulocytes 12.8 H, Absolute Lymphocytes 1.0 L, Absolute Monocytes 0.2, Absolute Eosinophils 0, Absolute Basophils 0, Serum Alcohol < 10.0, Acetone Level POSITIVE AT 1:16 DIL 08/25/174: Serum Osmolality Cancelled, Acetone Level Cancelled Microbiology 08/26 829 BLOOD: Blood Culture - RES 08/26 814 BLOOD: Blood Culture - RES 08/26 0439 NASOPHARYN: Influenza Virus A & B Rapid Smear - CAN Cancelled: SPECIMEN NOT RECEIVED IN LABORATORY 08/26 527 URINE ROUT: Urine Culture - RES 08/26 414 UPPER RESP: Surveillance Culture - COMP Microbiology 08/26 829 BLOOD: Blood Culture - RES 08/26 814 BLOOD: Blood Culture - RES 08/26 538 NASOPHARYN: Influenza Virus A & B Rapid Smear - CAN Cancelled: SPECIMEN NOT RECEIVED IN LABORATORY 08/26 527 URINE ROUT: Urine Culture - RES 08/26 414 UPPER RESP: Surveillance Culture - COMP Vital Signs Date Time Temp Pulse Resp B/P B/P Pulse O2 O2 Flow FiO2 Mean Ox Delivery Rate 08/28 0702 98.3 76 20 168/94 95 Room Air 08/28 0031 99.0 87 20 156/80 94 Room Air 08/27 2242 85 156/80 08/27 1600 98.0 69 20 110/70 98 Room Air 08/27 1600 97 Room Air 08/27 1224 100 168/90
--- NOTE | 2017-08-28 11:56 | PN- Cardiology ---
Subjective Subjective: Patient feels well this morning with no residual symptoms. He tells me his recent outpatient follow-ups have been limited due to financial issues. Objective Vital Signs and I&Os Vital Signs Date Time Temp Pulse Resp B/P B/P Pulse O2 O2 Flow FiO2 Mean Ox Delivery Rate 08/28 0702 98.3 76 20 168/94 95 Room Air 08/28 0031 99.0 87 20 156/80 94 Room Air 08/27 2242 85 156/80 / 1600 98.0 69 20 110/70 98 Room Air 08/27 1600 97 Room Air 08/27 1224 100 168/90 Intake & Output 08/28 1600 08/28 0800 / 0000 08/27 1600 08/27 0800 08/27 0000 Intake Total 220 82 629 196.5 692 Output Total 1200 1200 600 800 Balance -980 82 -571 -403.5 -108 Intake, IV 220 82 149 196.5 412 Intake, Oral 480 280 Number 1 0 Bowel Movements Output, Urine 1200 1200 600 800 Physical Exam: General: no apparent distress. Alert. Eyes: No obvious scleral icterus. HEENT: No jugular venous distention or abnormal jugular venous pulsations. Cardiovascular: Normal intensity S1/S2. Surgical scar is noted Respiratory: Lungs clear to auscultation bilaterally. Abdomen: Soft, nontender with no guarding or rebound tenderness. Musculoskeletal: No clubbing or cyanosis noted some: No edema Skin: Warm Neurologic: No gross focal deficits noted. Current Medications: Current Medications Sig/Veto Start time Last Medication Dose Route Stop Time Status Admin Acetaminophen 650 MG Q6P PRN 08/26 0415 AC 08/28 PO 0942 Aspirin 325 MG DAILY 08/26 1650 AC 08/28 PO 0924 Atorvastatin Calcium 80 MG 1700 08/26 1700 AC 08/27 PO 1701 Bismuth Subsalicylate 30 ML PCHS 08/26 0900 AC 08/27 PO 0734 Calcium 600 MG BID 08/26 2200 AC 08/28 PO 0924 Cholecalciferol 1,000 IU DAILY 08/27 1000 AC 08/28 PO 0924 Clopidogrel Bisulfate 75 MG DAILY 08/26 1650 AC 08/28 PO 0924 Escitalopram Oxalate 20 MG DAILY 08/26 1000 AC 08/28 PO 0924 Guaifenesin 600 MG Q12 08/26 1000 AC 08/28 PO 0925 Heparin Sodium 10,000 UNIT .STK-MED ONE 08/27 1653 DC (Porcine) IV 08/27 1654 Heparin Sodium/ 25,000 UNIT Q24H 08/26 1700 AC 08/27 Dextrose IV 1705 Dextrose/Water 500 ML Insulin Aspart 0 AC & AT BEDTIME 08/26 1800 AC 08/28 SC 0841 Insulin Detemir 20 UNITS BID 08/27 2200 AC 08/28 SC 0842 Lidocaine 1 PAT DAILY NEEDED PRN 08/26 0630 AC EXT Metoclopramide HCl 10 MG Q6P PRN 08/26 0830 AC 08/26 IV 0916 Metoprolol Tartrate 37.5 MG BID 08/26 1000 AC 08/28 PO 0926 Nitroglycerin 0.5 GM Q6 08/26 1800 AC 08/28 TOP 0655 Pantoprazole Sodium 40 MG DAILY 08/26 1000 AC 08/28 IV 0924 Potassium Chloride 40 MEQ ONCE ONE 08/27 1200 DC 08/27 PO 08/27 1201 1218 Results Last 48 Hrs of Labs/Mics: Laboratory Tests 08/28/17 0655: Anion Gap 11, Estimated GFR > 60, BUN/Creatinine Ratio 30.0 H, CBC w Diff NO MAN DIFF REQ, RBC 4.59 L, MCV 83.2, MCH 28.1, MCHC 33.8, RDW 13.4, MPV 10.5 H, Gran % 45.4, Lymphocytes % 44.2, Monocytes % 6.8, Eosinophils % 2.6, Basophils % 1.0, Absolute Granulocytes 2.6, Absolute Lymphocytes 2.5, Absolute Monocytes 0.4 , Absolute Eosinophils 0.1, Absolute Basophils 0.1, [place] Antibody Pending 08/27/17 2205: APTT 60 H 08/27/17 1520: APTT 41 H 08/27/17 0810: APTT > 120 *H 08/27/17 0430: Anion Gap 14, Estimated GFR > 60, Glucose 362 H, Calcium 8.3 L, Phosphorus 2.2 L, Magnesium 2.2, Total Bilirubin 0.2, AST 14 L, ALT 25, Albumin 2.9 L, CBC w Diff NO MAN DIFF REQ, RBC 4.72, MCV 83.7, MCH 28.1, MCHC 33.6, RDW 14.2, MPV 10.7 H, Gran % 61.0, Lymphocytes % 32.1, Monocytes % 5.2, Eosinophils % 1.0, Basophils % 0.7, Absolute Granulocytes 4.6, Absolute Lymphocytes 2.4, Absolute Monocytes 0.4, Absolute Eosinophils 0.1, Absolute Basophils 0.1 08/27/17 0100: APTT 38 H 08/26/17 2120: Anion Gap 13, Estimated GFR > 60, Glucose 285 H, Calcium 8.3 L, Phosphorus 2.5 , Magnesium 1.9, Total Bilirubin 0.2, AST 11 L, ALT 29, Albumin 2.9 L 08/26/17 1845: Troponin I 0.69 *H 08/26/17 1702: Sodium Cancelled, Potassium Cancelled, Chloride Cancelled, Carbon Dioxide Cancelled, Anion Gap Cancelled, BUN Cancelled, Creatinine Cancelled, Glucose Cancelled, Calcium Cancelled, Phosphorus Cancelled, Magnesium Cancelled, Total Bilirubin Cancelled, AST Cancelled, ALT Cancelled, Albumin Cancelled 08/26/17 1505: Anion Gap 8, Estimated GFR > 60, Glucose 215 H, Calcium 6.6 L, Phosphorus 2.1 L, Magnesium 1.6, Total Bilirubin 0.2, AST 10 L, ALT 28, Albumin 2.3 L Recent Imaging Studies: Telemetry tracings were personally reviewed and shows sinus rhythm Doppler study: Normal triplex scan without evidence of deep venous thrombosis involving the lower extremities. Echo: 1. Normal EF of 70% with impaired LV relaxation. 2. Moderate left ventricular hypertrophy. 3. Mild left atrial enlargement. 4. Trace tricuspid regurgitation. 5. Trace pulmonic regurgitation. Primitivo Altman M.D. (Electronically Signed) Final Date: 28 August 2017 07:36 Assessment/Plan Assessment/Plan 1. Uncontrolled diabetes with diabetic ketoacidosis 2. Elevated troponin with normal wall motion by Echo consistent with type II myocardial infarction 3. History of CABG 2009 with patent grafts by cardiac catheterization 2015 4. Noncompliance with medication due to financial issues 5. Hypertension 6. 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 The etiology of the elevated troponin is most likely not due to acute plaque rupture. I had an extensive discussion with the patient regarding plans for further assessment and at this time he elects to pursue optimal medical therapy with possible noninvasive ischemic testing as an outpatient in the near future. I discussed the critical importance of medication compliance and close cardiac follow-up and he is going to work with psychosocial rehabilitation counselor given his financial issues. The patient should be continued on aspirin 81 mg by mouth daily along with the high-dose statin daily. Resume his outpatient beta estephania and Imdur. Would recommend starting lisinopril 10 mg by mouth daily given diabetes along with coronary artery disease and uncontrolled hypertension. Heparin infusion should be discontinued as should the topical nitroglycerin. He should follow-up in our office with his primary medical biller, Dr. Tai, within one week of discharge. Daniel Mcclelland MD [facility] Continue telemetry? No
[2017-08-28 15:16] VITALS: BP 124/80
[2017-08-28 16:36] VITALS: BP 144/80
[2017-08-28 22:13] VITALS: BP 120/68
[2017-08-29 06:40] VITALS: BP 138/84
--- NOTE | 2017-08-29 07:35 | PN- Housestaff ---
Subjective Follow-up For: DKA- resolved uncontrolled DM Tele-Events Since Last Visit: Off telemetry Subjective: Patient was seen and examined today. Patient states he feels well. Has no complaints today. Denies chest pain, palpitations, SOB, abdominal pain, nausea/ vomitting, sweating or tremors. Patient states he is eating well. Patient's blood sugar this morning was 230. Patient notes he had crackers overnight. Review of Systems Constitutional: Reports: no symptoms. Cardiovascular: Reports: no symptoms. Respiratory: Reports: no symptoms. Gastrointestinal: Reports: no symptoms. Genitourinary: Reports: no symptoms. Musculoskeletal: Reports: no symptoms. Neurological/Psychological: Reports: no symptoms. Objective Last 24 Hrs of Vital Signs/I&O Vital Signs Date Time Temp Pulse Resp B/P B/P Pulse O2 O2 Flow FiO2 Mean Ox Delivery Rate 08/29 0640 98.2 74 20 138/84 98 Room Air / 2250 77 120/68 / 2213 98.2 77 20 120/68 95 Room Air / 1636 144/80 / 1516 98.0 74 20 124/80 96 02/05 1454 124/70 02/05 1454 124/70 Intake & Output 08/29 1600 /06 0800 08/29 0000 Intake Total 450 Output Total Balance 450 Intake, Oral 450 Number 1 Bowel Movements Physical Exam General Appearance: Alert, Oriented X3, Cooperative, No Acute Distress Skin Temp/Moisture Exam: Warm/Dry HEENT: Atraumatic, PERRLA, EOMI, Mucous Membr. moist/pink Cardiovascular: Regular Rate, Normal S1, Normal S2, No Murmurs Lungs: Clear to Auscultation, Normal Air Movement Abdomen: Normal Bowel Sounds, Soft, No Tenderness Extremities: No Clubbing, No Cyanosis, No Edema, Normal Pulses, No Tenderness/ Swelling Vascular: Normal Pulses, Pulses Symmetrical Current Medications: Current Medications Sig/Veto Start time Last Medication Dose Route Stop Time Status Admin Acetaminophen 650 MG .STK-MED ONE 08/28 0940 DC PO 08/28 0941 Acetaminophen 650 MG Q6P PRN 08/26 0415 AC 08/28 PO 0942 Aspirin 325 MG DAILY 08/26 1650 AC 08/28 PO 0924 Atorvastatin Calcium 80 MG 1700 08/26 1700 AC 08/28 PO 1730 Bisacodyl 5 MG DAILY 08/28 1500 CAN PO Bisacodyl 10 MG ONCE PRN 08/28 1500 CAN PA Bismuth Subsalicylate 30 ML PCHS 08/26 0900 AC 02 PO 2250 Calcium 600 MG BID 08/26 2200 AC 08/28 PO 2249 Cholecalciferol 1,000 IU DAILY 08/27 1000 AC / PO 0924 Clopidogrel Bisulfate 75 MG DAILY 08/26 1650 AC 08/28 PO 0924 Escitalopram Oxalate 20 MG DAILY 08/26 1000 AC 08/28 PO 0924 Guaifenesin 600 MG Q12 08/26 1000 AC 08/28 PO 2249 Heparin Sodium/ 25,000 UNIT Q24H / 1700 DC 08/27 Dextrose IV 1705 Dextrose/Water 500 ML Insulin Aspart 0 AC & AT BEDTIME 08/26 1800 AC 08/28 SC 1730 Insulin Detemir 20 UNITS BID 08/27 2200 AC 08/28 SC 2250 Isosorbide 60 MG DAILY 08/28 1315 AC 08/28 Mononitrate PO 1454 Lidocaine 1 PAT DAILY NEEDED PRN 08/26 0630 AC EXT Lisinopril 10 MG DAILY 08/28 1330 AC 08/28 PO 1454 Melatonin 5 MG ONCE ONE 08/28 2230 DC 08/28 PO 08/28 2231 2249 Metoclopramide HCl 10 MG Q6P PRN 08/26 0830 AC 08/26 IV 0916 Metoprolol Tartrate 37.5 MG BID 08/26 1000 AC 08/28 PO 2250 Nitroglycerin 0.5 GM Q6 08/26 1800 DC 08/28 TOP 1246 Pantoprazole Sodium 40 MG DAILY 08/26 1000 AC 08/28 IV 0924 Potassium Chloride 60 MEQ ONCE ONE 08/28 1315 DC 02/05 PO 08/28 1316 1455 Senna/Docusate Sodium 2 TAB DAILY 08/28 1500 CAN PO Assessment/Plan Assessment: Patient is a 62 y/o male with PMH of insulin dependent diabetes (diagnosed 20 years prior) follows with Dr. Armendariz at [place], CAD s/p CABG x 3 and STEMI, and HTN presenting with chief complain of 2 weeks of nonproductive cough and 3 day history of nausea, vomiting, and poor appetite. On admission patient was found to have high blood glucose associated w/ anion gap metabolic acidosis with postive acetone and was initially admitted to ICU for management of DKA. Started on an insulin drip. Patient also reported chest pain radiating to back and was found to have elevated trops with mild T wave inversions and was started on IV heparin, ASA 325mg daily and clopidogrel 75mg daily, and was continued on atorvastatin and metoprolol at his home doses. Today patient's sugars remain elevated as he missed his levemir dose for unknown reasons. Patient was seen by endocrinology and will be maintained on the same insulin regimen. Patient was seen by cardiology today and IV heparin and nitroglycerin were discontinued. Likely patient's elevated trops and mild EKG changes are due to demand ischemia secondary to the DKA. Patient is currently asymptomatic 1. DKA 2. Elevated trops 3. Hypokalemia - cardiology on board - heparin discontinued - nitroglycerin discontinued - restarted imdur - continued metoprolol - started on lisinopril 10mg daily - potassium repleted - continue current insulin regimen per endocrinology - continue accuchecks TIDAC and qHS - will repeat BEP in AM - social work consulted for patient's financial and insurance related concerns DVT PPx: heparin Diet: diabetic diet Code: Full code Dispo: discharge home today pending BEP, with close follow up with endocrinology and cardiology Problem List: 1. Uncontrolled diabetes mellitus Pain Ratin Pain Location: n/a Pain Goal: Remain pain free Pain Plan: n/a Tomorrow's Labs & Rationales: none - discharge home today
--- NOTE | 2017-08-29 08:11 | PN- Diabetes ---
Assessment/Plan Assessment: This 62-year-old male came into the hospital with evidence of diabetic ketoacidosis. L He is presently on Levemir 20 units twice a day and sliding scale NovoLog. The patient's blood sugars yesterday were 220 before breakfast, 251 before lunch , 115 before dinner and 242 at bedtime. The patient states he feels improved. He has had no further nausea vomiting. The patient's mood seems improved. Does still complain of severe diabetic neuropathy. Plan: Suggest continue with present insulin. If the patient goes home today he can go home on the present insulin regimen. He does have Levemir at home. We can substitute Humalog which is the pre-meal insulin he has at home for NovoLog on a unit for unit basis. The patient's diet at home and activities will be different and his insulin will need further fine tuning. Await anti-gino antibody. Subjective Subjective: There was improved Review of Systems Constitutional: Denies: chills, fever. Cardiovascular: Denies: chest pain. Respiratory: Denies: cough, short of breath. Gastrointestinal: Denies: abdominal pain, nausea. Skin: Reports: no symptoms. Objective Last 24 Hrs of Vital Signs/I&O Laboratory Tests 08/29 08/28 0615 1000 Chemistry Sodium Pending Potassium Pending Chloride Pending Carbon Dioxide Pending Anion Gap Pending BUN Pending Creatinine Pending BUN/Creatinine Ratio Pending Coagulation APTT Cancelled Vital Signs Date Time Temp Pulse Resp B/P B/P Pulse O2 O2 Flow FiO2 Mean Ox Delivery Rate 08/29 0640 98.2 74 20 138/84 98 Room Air 08/28 2250 77 120/68 08/28 2213 98.2 77 20 120/68 95 Room Air 08/28 1636 144/80 08/28 1516 98.0 74 20 124/80 96 /05 1454 124/70 05 1454 124/70 Intake & Output 08/29 1600 08/29 0800 08/29 0000 Intake Total 450 Output Total Balance 450 Intake, Oral 450 Number 1 Bowel Movements Physical Exam General Appearance: alert, awake, comfortable Head: normal appearance Neck: normal inspection Respiratory: normal breath sounds Abdomen: normal bowel sounds Current Medications: Current Medications Sig/Veto Start time Last Medication Dose Route Stop Time Status Admin Acetaminophen 650 MG .STK-MED ONE 08/28 939 DC PO 02/05 0941 Acetaminophen 650 MG Q6P PRN 08/26 0415 AC 08/28 PO 0942 Aspirin 325 MG DAILY 08/26 1650 AC 08/28 PO 0924 Atorvastatin Calcium 80 MG 1700 08/26 1700 AC 08/28 PO 1730 Bisacodyl 5 MG DAILY 08/28 1500 CAN PO Bisacodyl 10 MG ONCE PRN 08/28 1500 CAN CO Bismuth Subsalicylate 30 ML PCHS 08/26 0900 AC 08/28 PO 2250 Calcium 600 MG BID 08/26 2200 AC 08/28 PO 2249 Cholecalciferol 1,000 IU DAILY 08/27 1000 AC 08/28 PO 0924 Clopidogrel Bisulfate 75 MG DAILY 08/26 1650 AC 08/28 PO 0924 Escitalopram Oxalate 20 MG DAILY 08/26 1000 AC 08/28 PO 0924 Guaifenesin 600 MG Q12 08/26 1000 AC 08/28 PO 2249 Heparin Sodium/ 25,000 UNIT Q24H 08/26 1700 DC 08/27 Dextrose IV 1705 Dextrose/Water 500 ML Insulin Aspart 0 AC & AT BEDTIME 08/26 1800 AC 08/28 SC 1730 Insulin Detemir 20 UNITS BID 08/27 2200 AC 08/28 SC 2250 Isosorbide 60 MG DAILY 08/28 1315 AC 08/28 Mononitrate PO 1454 Lidocaine 1 PAT DAILY NEEDED PRN 08/26 0630 AC EXT Lisinopril 10 MG DAILY 08/28 1330 AC 08/28 PO 1454 Melatonin 5 MG ONCE ONE 08/28 2230 DC 08/28 PO 08/28 2231 2249 Metoclopramide HCl 10 MG Q6P PRN 08/26 0830 AC 08/26 IV 0916 Metoprolol Tartrate 37.5 MG BID 08/26 1000 AC 08/28 PO 2250 Nitroglycerin 0.5 GM Q6 08/26 1800 DC 08/28 TOP 1246 Pantoprazole Sodium 40 MG DAILY 08/26 1000 AC 08/28 IV 0924 Potassium Chloride 60 MEQ ONCE ONE 08/28 1315 DC 08/28 PO 08/28 1316 1455 Senna/Docusate Sodium 2 TAB DAILY 08/28 1500 CAN PO Findings Pertinent Lab/Nghia Results: Laboratory Tests 08/29 08/28 0615 1000 Chemistry Sodium Pending Potassium Pending Chloride Pending Carbon Dioxide Pending Anion Gap Pending BUN Pending Creatinine Pending BUN/Creatinine Ratio Pending Coagulation APTT Cancelled
[2017-08-29 08:17] VITALS: BP 132/80
--- NOTE | 2017-08-29 09:42 | PN- Cardiology ---
Subjective Subjective: The patient is awake, alert, ambulating the halls without difficulty The events of the last 24 hours as well as telemetry were reviewed. Review of Systems: The review of systems is negative for chest pains, palpitations nor lightheadedness. The remainder of the 14 point review of systems is noncontributory with the exception of above. Objective Vital Signs and I&Os Vital Signs Date Time Temp Pulse Resp B/P B/P Pulse O2 O2 Flow FiO2 Mean Ox Delivery Rate 08/29 0817 132/80 08/29 0817 132/80 08/29 0816 132/80 / 0640 98.2 74 20 138/84 98 Room Air 02/ 2250 77 120/68 02/05 2213 98.2 77 20 120/68 95 Room Air 02/ 1636 144/80 02/ 1516 98.0 74 20 124/80 96 02/05 1454 124/70 02/ 1454 124/70 Intake & Output 08/29 1600 08/29 0800 / 0000 08/28 1600 08/28 0800 08/28 0000 Intake Total 450 220 82 Output Total 1200 Balance 450 -980 82 Intake, IV 220 82 Intake, Oral 450 Number 1 1 Bowel Movements Output, Urine 1200 Physical Exam: General: Nontoxic, no apparent distress. HEENT: Sclera and conjunctiva within normal limits, without xanthelasmas. Neck: Carotids 2+ without bruits. Respiratory: Clear to auscultation, air movement is good, without accessory respiratory muscle use. Heart: Regular rate and rhythm, without murmurs, without JVD. Abdomen: Soft, nontender, no masses, normoactive bowel sounds. Extremities: Without clubbing, cyanosis, without edema. Neuro: Nonfocal exam, strength, 5 out of 5 Skin: Within normal limits without lesions. Psych: Mood and affect: Normal Current Medications: Current Medications Sig/Veto Start time Last Medication Dose Route Stop Time Status Admin Acetaminophen 650 MG .STK-MED ONE 08/28 0940 DC PO 08/28 0941 Acetaminophen 650 MG Q6P PRN 08/26 0415 AC 08/28 PO 0942 Aspirin 325 MG DAILY 08/26 1650 AC 08/29 PO 0816 Atorvastatin Calcium 80 MG 1700 08/26 1700 AC 08/28 PO 1730 Bisacodyl 5 MG DAILY 08/28 1500 CAN PO Bisacodyl 10 MG ONCE PRN 08/28 1500 CAN IA Bismuth Subsalicylate 30 ML PCHS 08/26 0900 AC 08/28 PO 2250 Calcium 600 MG BID 08/26 2200 AC 08/29 PO 0817 Cholecalciferol 1,000 IU DAILY 08/27 1000 AC 08/29 PO 0817 Clopidogrel Bisulfate 75 MG DAILY 08/26 1650 AC 08/29 PO 0817 Escitalopram Oxalate 20 MG DAILY 08/26 1000 AC 08/29 PO 0817 Guaifenesin 600 MG Q12 08/26 1000 AC 08/29 PO 0817 Heparin Sodium/ 25,000 UNIT Q24H 08/26 1700 DC 08/27 Dextrose IV 1705 Dextrose/Water 500 ML Insulin Aspart 0 AC & AT BEDTIME 08/26 1800 AC 08/29 SC 0808 Insulin Detemir 20 UNITS BID 08/27 2200 AC 08/29 SC 0808 Isosorbide 60 MG DAILY 08/28 1315 AC 08/29 Mononitrate PO 0816 Lidocaine 1 PAT DAILY NEEDED PRN 08/26 0630 AC EXT Lisinopril 10 MG DAILY 08/28 1330 AC 08/29 PO 0817 Melatonin 5 MG ONCE ONE 08/28 2230 DC 08/28 PO 08/28 2231 2249 Metoclopramide HCl 10 MG Q6P PRN 08/26 0830 AC 08/26 IV 0916 Metoprolol Tartrate 37.5 MG BID 08/26 1000 AC 08/29 PO 0817 Nitroglycerin 0.5 GM Q6 08/26 1800 DC 08/28 TOP 1246 Pantoprazole Sodium 40 MG DAILY 08/26 1000 AC 08/29 IV 0817 Potassium Chloride 60 MEQ ONCE ONE 08/28 1315 DC 08/28 PO 08/28 1316 1455 Senna/Docusate Sodium 2 TAB DAILY 08/28 1500 CAN PO Results Last 48 Hrs of Labs/Mics: Laboratory Tests 08/29/17 0615: Anion Gap 10, Estimated GFR > 60, BUN/Creatinine Ratio 28.3 H 08/28/17 1000: APTT Cancelled 08/28/17 0655: Anion Gap 11, Estimated GFR > 60, BUN/Creatinine Ratio 30.0 H, CBC w Diff NO MAN DIFF REQ, RBC 4.59 L, MCV 83.2, MCH 28.1, MCHC 33.8, RDW 13.4, MPV 10.5 H, Gran % 45.4, Lymphocytes % 44.2, Monocytes % 6.8, Eosinophils % 2.6, Basophils % 1.0, Absolute Granulocytes 2.6, Absolute Lymphocytes 2.5, Absolute Monocytes 0.4 , Absolute Eosinophils 0.1, Absolute Basophils 0.1, CARLTON Antibody Pending 08/27/17 2205: APTT 60 H 08/27/17 1520: APTT 41 H Assessment/Plan Assessment/Plan 1. Uncontrolled diabetes with diabetic ketoacidosis 2. Elevated troponin with normal wall motion by Echo consistent with type II myocardial infarction 3. History of CABG 2009 with patent grafts by cardiac catheterization 2015 4. Noncompliance with medication due to financial issues 5. Hypertension 6. 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 He had mild troponin isoenzyme elevations, the pattern of which suggests a type II (supply/demand mismatch) acute myocardial infarction. Subsequently, an echocardiogram demonstrated no residual wall motion of modalities. The patient remained stable from a cardiac standpoint, he may be discharged with further outpatient cardiac follow-up when ready from echo standpoint. His aspirin regimen may be decreased to 81 mg daily, and he will otherwise remain on his statin regimen as well as a beta estephania. An MARTIN inhibitor or angiotensin receptor estephania should as well be initiated. Continue telemetry? No
--- NOTE | 2017-08-29 10:05 | PN- Att Addend ---
Attending Addendum Attending Brief Note Patient looking and feeling much better. Insurance issues also resolved. No chest pain. No shortness of breath. Blood sugars improved. Vital signs are stable is afebrile Maryjane no changes on physical appreciate endocrine and cardiology's input and recommendations patient can be discharged and continue the workup as an outpatient with cardiology, endocrinology, follow with me. Intake & Output 08/29 1600 08/29 0400 08/28 1600 08/28 0400 08/27 1600 08/27 0400 Intake Total 450 220 82 825.5 692 Output Total 1200 1800 800 Balance 450 -980 82 -974.5 -108 Intake, IV 220 82 345.5 412 Intake, Oral 450 480 280 Number 1 1 0 Bowel Movements Output, Urine 1200 1800 800 Current Medications Sig/Veto Start time Last Medication Dose Route Stop Time Status Admin Acetaminophen 650 MG Q6P PRN 08/26 0415 AC 08/28 PO 0942 Aspirin 325 MG DAILY 08/26 1650 AC 08/29 PO 0816 Atorvastatin Calcium 80 MG 1700 08/26 1700 AC 08/28 PO 1730 Bisacodyl 5 MG DAILY 08/28 1500 CAN PO Bisacodyl 10 MG ONCE PRN 08/28 1500 CAN SC Bismuth Subsalicylate 30 ML PCHS 08/26 0900 AC 08/28 PO 2250 Calcium 600 MG BID 08/26 2200 AC 08/29 PO 0817 Cholecalciferol 1,000 IU DAILY 08/27 1000 AC 08/29 PO 0817 Clopidogrel Bisulfate 75 MG DAILY 08/26 1650 AC 08/29 PO 0817 Escitalopram Oxalate 20 MG DAILY 08/26 1000 AC 08/29 PO 0817 Guaifenesin 600 MG Q12 08/26 1000 AC 08/29 PO 0817 Heparin Sodium/ 25,000 UNIT Q24H 08/26 1700 DC 08/27 Dextrose IV 1705 Dextrose/Water 500 ML Insulin Aspart 0 AC & AT BEDTIME 08/26 1800 AC 08/29 SC 0808 Insulin Detemir 20 UNITS BID 08/27 2200 AC 08/29 SC 0808 Isosorbide 60 MG DAILY 08/28 1315 AC 08/29 Mononitrate PO 0816 Lidocaine 1 PAT DAILY NEEDED PRN 08/26 0630 AC EXT Lisinopril 10 MG DAILY 08/28 1330 AC 08/29 PO 0817 Melatonin 5 MG ONCE ONE 08/28 2230 DC 08/28 PO 08/28 2231 2249 Metoclopramide HCl 10 MG Q6P PRN 08/26 0830 AC 08/26 IV 0916 Metoprolol Tartrate 37.5 MG BID 08/26 1000 AC 08/29 PO 0817 Nitroglycerin 0.5 GM Q6 08/26 1800 DC 08/28 TOP 1246 Pantoprazole Sodium 40 MG DAILY 08/26 1000 AC 08/29 IV 0817 Potassium Chloride 60 MEQ ONCE ONE 08/28 1315 DC 08/28 PO 08/28 1316 1455 Senna/Docusate Sodium 2 TAB DAILY 08/28 1500 CAN PO Laboratory Tests 08/29/17 0615: Anion Gap 10, Estimated GFR > 60, BUN/Creatinine Ratio 28.3 H 08/28/17 1000: APTT Cancelled 08/28/17 0655: Anion Gap 11, Estimated GFR > 60, BUN/Creatinine Ratio 30.0 H, CBC w Diff NO MAN DIFF REQ, RBC 4.59 L, MCV 83.2, MCH 28.1, MCHC 33.8, RDW 13.4, MPV 10.5 H, Gran % 45.4, Lymphocytes % 44.2, Monocytes % 6.8, Eosinophils % 2.6, Basophils % 1.0, Absolute Granulocytes 2.6, Absolute Lymphocytes 2.5, Absolute Monocytes 0.4 , Absolute Eosinophils 0.1, Absolute Basophils 0.1, CARLTON Antibody Pending 08/27/17 2205: APTT 60 H 08/27/17 1520: APTT 41 H 08/27/17 0810: APTT > 120 *H 08/27/17 0430: Anion Gap 14, Estimated GFR > 60, Glucose 362 H, Calcium 8.3 L, Phosphorus 2.2 L, Magnesium 2.2, Total Bilirubin 0.2, AST 14 L, ALT 25, Albumin 2.9 L, CBC w Diff NO MAN DIFF REQ, RBC 4.72, MCV 83.7, MCH 28.1, MCHC 33.6, RDW 14.2, MPV 10.7 H, Gran % 61.0, Lymphocytes % 32.1, Monocytes % 5.2, Eosinophils % 1.0, Basophils % 0.7, Absolute Granulocytes 4.6, Absolute Lymphocytes 2.4, Absolute Monocytes 0.4, Absolute Eosinophils 0.1, Absolute Basophils 0.1 08/27/17 0100: APTT 38 H 08/26/170: Anion Gap 13, Estimated GFR > 60, Glucose 285 H, Calcium 8.3 L, Phosphorus 2.5 , Magnesium 1.9, Total Bilirubin 0.2, AST 11 L, ALT 29, Albumin 2.9 L 08/26/17 1845: Troponin I 0.69 *H 08/26/17 1702: Sodium Cancelled, Potassium Cancelled, Chloride Cancelled, Carbon Dioxide Cancelled, Anion Gap Cancelled, BUN Cancelled, Creatinine Cancelled, Glucose Cancelled, Calcium Cancelled, Phosphorus Cancelled, Magnesium Cancelled, Total Bilirubin Cancelled, AST Cancelled, ALT Cancelled, Albumin Cancelled 08/26/17 1505: Anion Gap 8, Estimated GFR > 60, Glucose 215 H, Calcium 6.6 L, Phosphorus 2.1 L, Magnesium 1.6, Total Bilirubin 0.2, AST 10 L, ALT 28, Albumin 2.3 L 08/26/17 1100: Troponin I Cancelled 08/26/17 1100: Anion Gap 17 H, Estimated GFR > 60, Glucose 204 H, Calcium 8.5, Phosphorus 3.2 , Magnesium 1.9, Total Bilirubin 0.4, AST 10 L, ALT 18 L, Troponin I 0.95 *H, Albumin 3.3 L Vital Signs Date Time Temp Pulse Resp B/P B/P Pulse O2 O2 Flow FiO2 Mean Ox Delivery Rate 08/29 0817 132/80 0206 0817 132/80 06 0816 132/80 06 0640 98.2 74 20 138/84 98 Room Air 08/28 2250 77 120/68 02 2213 98.2 77 20 120/68 95 Room Air / 1636 144/80 08/28 1516 98.0 74 20 124/80 96 02/05 1454 124/70 02 1454 124/70
--- NOTE | 2017-08-29 11:01 | Patient Discharge Instructions ---
Discharge Instructions General Discharge Information You were seen/treated for: Diabetic Ketoacidosis Special Instructions: Please follow up with your pcp within 1 week. Please follow up with your technical designer within 1 week. Please check your blood sugars three times a day before meals and once at bedtime. Diet Continue normal diet: No Recommended Diet: Diabetic Acute Coronary Syndrome Inclusion Criteria At DC or during hospital stay patient has or had the following: ACS DIAGNOSIS No Discharge Core Measures Meds if any: Prescribed or Continued at Discharge Meds if any: NOT Prescribed or Continued at Discharge Congestive Heart Failure Inclusion Criteria At DC or during hospital stay patient has or had the following: CHF DIAGNOSIS No Discharge Core Measures Meds if any: Prescribed or Continued at Discharge Meds if any: NOT Prescribed or Continued at Discharge Cerebrovascular accident Inclusion Criteria At DC or during hospital stay patient has or had the following: CVA/TIA Diagnosis No Discharge Core Measures Meds if any: Prescribed or Continued at Discharge Meds if any: NOT Prescribed or Continued at Discharge Venous thromboembolism Inclusion Criteria VTE Diagnosis No VTE Type NONE VTE Confirmed by (Test) NONE Discharge Core Measures - Per Current guidelines, there needs to be overlap - treatment for the first 5 days of Warfarin therapy. - If discharged on Warfarin prior to 5 days of - overlap therapy, the patient will need to be - assessed for post discharge needs including - *Post discharge parental anticoagulation - *Warfarin and/or parental anticoagulation education - *Follow up date to check INR post discharge At least 5 days overlap therapy as Inpatient No Meds if any: Prescribed or Continued at Discharge Note: Overlap Therapy is Warfarin and Anticoagulant Meds if any: NOT Prescribed or Continued at Discharge
[2017-08-29] MEDS ORDERED: NOVOLOG FL100 UNIT/1 SC (11:46)
[2017-08-29] MEDS ORDERED: LEVEMIR FL100 UNIT/1 SC (11:46)
[2017-08-29] MEDS ORDERED: CRESTOR40 M2 PO (13:00)
[2017-08-29] MEDS ORDERED: ISOSORBIDE MONO60 M1 PO (13:00)
[2017-08-29] MEDS ORDERED: HYDROCHLOROTHIA25 M1 PO (13:00)
[2017-08-29] MEDS ORDERED: METOPROLOL TART25 M1 PO (13:00)
[2017-08-29] MEDS ORDERED: ESCITALOPRAM OX20 MG PO (13:00)
[2017-08-29] MEDS ORDERED: POTASSIUM CHLO20 ME2 PO (13:00)
[2017-08-29] MEDS ORDERED: ASPIRIN EC81 M1 PO (13:07)
[2017-08-29] MEDS ORDERED: LISINOPRIL10 M1 PO (13:07)
== END 2017-08-29 12:55 | DRG 420 ==
LOC: ERH 22:24 → ERHI 08-26 01:57 → 1NO 08-26 01:57 → ENRESERV 08-26 02:36 → CANRESERV 08-26 02:36 → ENRESERVDT 08-26 02:36 → ENRESERVTM 08-26 02:36 → ENRESERV 08-26 02:37 → CRI 08-26 04:06 → 1NO 08-27 18:50 → ENPENDDIS 08-29 11:51 → 1NO 08-29 12:55
PROVIDERS: Internal Medicine; Internal Medicine Critical Care Medicine; Internal Medicine Endocrinology, Diabetes & Metabolism; Internal Medicine Infectious Disease; Internal Medicine Pulmonary Disease; Physician Assistant Medical; Student in an Organized Health Care Education/Training Program
DX: E11.10 Type 2 diabetes mellitus with ketoacidosis without coma (principal); I21.A1 Myocardial infarction type 2; E87.5 Hyperkalemia; Z79.4 Long term (current) use of insulin; Z79.84 Long term (current) use of oral hypoglycemic drugs; E11.40 Type 2 diabetes mellitus with diabetic neuropathy, unspecified; E86.0 Dehydration; I25.10 Atherosclerotic heart disease of native coronary artery without angina pectoris; Z95.1 Presence of aortocoronary bypass graft; I25.2 Old myocardial infarction; I10 Essential (primary) hypertension; F41.9 Anxiety disorder, unspecified; Z91.120 Patient's intentional underdosing of medication regimen due to financial hardship; E11.65 Type 2 diabetes mellitus with hyperglycemia; E87.6 Hypokalemia; T38.3X6A Underdosing of insulin and oral hypoglycemic [antidiabetic] drugs, initial encounter
CPT/HCPCS: 1NSP; 83519; CCU; 36415; 71045; 74176; 81001; 82436; 87040; 87086; 87804; 87804-59; 93005; 93010; 93306; 93970; G0480; J0696; J0780; J1644; J1815; J2405; J2550; J2765; J7042; J7060

== ENCOUNTER 2017-11-13 17:09 | Inpatient (IN) | payer OTHER ==
[~2017-11-13] VITALS: Ht 177.8 cm; Wt 95.3 kg
[~2017-11-13 17:09] MED LIST changes: +ASPIRIN EC81 M1 PO; +LEVEMIR FL100 UNIT/1 SC; +LISINOPRIL10 M1 PO; +NOVOLOG FL100 UNIT/1 SC
--- NOTE | 2017-11-13 17:47 | ED NEURO DEFICIT/STROKE ---
History of Present Illness General Chief Complaint: General Adult Stated Complaint: SLUR SPEECH FACIAL DROOP Source: patient Exam Limitations: no limitations Vital Signs & Intake/Output Vital Signs & Intake/Output Vital Signs Date Time Temp Pulse Resp B/P B/P Pulse O2 O2 Flow FiO2 Mean Ox Delivery Rate 11/14 0024 98.5 78 18 119/65 93 Room Air 11/13 1839 72 16 132/82 99 Room Air 11/13 1835 98 Room Air 11/13 1714 97.2 77 18 137/85 97 Room Air ED Intake and Output 11/14 0000 11/13 1200 Intake Total Output Total Balance Patient 203 lb Weight Weight Reported by Patient Measurement Method Allergies Coded Allergies: No Known Drug Allergies (Intermediate, NONE 05/11/17) Triage Note: PT SENT IN BY HIS AFTER SHE NOTED HIM TO HAVE RIGHT SIDED FACIAL DROOP. PT STATES THIS HAS BEEN GOING ON FOR A FEW DAYS AND HE THINKS IT MIGHT BE RELATED TO A MED CHANGE THAT HIS PCP DID. PT STATES HE WAS PUT ON JADIAN AND HE HAS BEEN ON IT FOR ABOUT 1 WEEK AND HE NOTICED THAT HIS FACE HAS BEEN DROOPING ON AND OFF. PT WITH DECREASED RIGHT HAND GRASP. GIRLFRIENDS PT HAS AN UNSTEADY GAIT ON AND OFF. Triage Nurses Notes Reviewed? yes Onset: Abrupt Duration: day(s): Timing: multiple episodes today Severity: severe HPI: Patient presents for evaluation of possible strokelike symptoms. Patient states that he has had intermittent episodes of slurred speech and "feeling weird" over the past 3 days. He states he felt very weak yesterday. He seemed well this morning having walked the dog without any difficulty this morning. However since then he has had slurred speech and unsteady gait. (Michelle BEDOYA,Yahir Cee) Reconcile Medications Alprazolam 1 MG TABLET 1 TAB PO BID ANXIETY (Reported) Aspirin (Ecotrin*) 81 MG TABLET.DR 1 TAB PO DAILY HEART Cyclobenzaprine HCl 10 MG TABLET 1 TAB PO QHS MUSCLE SPASMS (Reported) Escitalopram Oxalate 20 MG TABLET 30 MG PO DAILY MENTAL HEALTH Hydrochlorothiazide 25 MG TABLET 1 TAB PO DAILY BP Hydrocodone/Acetaminophen (Vicodin 5-300 MG Tablet) 5 MG-300 MG TABLET 1 TAB PO QHS PRN PAIN (Reported) Insulin Aspart, Recombinant (Novolog Flexpen) 100 UNIT/ML INSULN.PEN 0 SC SEE ADMIN CRITERIA DIABETES Insulin Detemir (Levemir Flextouch) 100 UNIT/ML (3 ML) INSULN.PEN 20 UNIT SC BID DIABETES Please take 20 units in the morning and 20 units at bedtime. Isosorbide Mononitrate (Isosorbide Mononitrate ER) 60 MG TAB.ER.24H 1 TAB PO DAILY HEART Lidocaine 5 % ADH..PATCH 1 PAT TOP BID PRN PAIN (Reported) Lisinopril 10 MG TABLET 1 TAB PO DAILY htn (Reported) Metoprolol Tartrate 25 MG TABLET 1.5 TAB PO BID HEART/BP Potassium Chloride 20 MEQ TAB.ER.PRT 1 TAB PO DAILY SUPPLEMENT Rosuvastatin Calcium (Crestor) 40 MG TABLET 1 TAB PO DAILY CHOLESTEROL (Joan BEDOYA,Ricardo Vaz) Past History Travel History Traveled to [place] past 21 day No Medical History Any Pertinent Medical History? see below for history Neurological: NONE EENT: NONE Cardiovascular: hypertension, STEMI, OPEN HEART SURGERY Respiratory: NONE Gastrointestinal: NONE Hepatic: NONE Renal: NONE Musculoskeletal: NONE Psychiatric: NONE Endocrine: diabetes Blood Disorders: NONE Cancer(s): NONE CLINICAL REGISTERED NURSE/Reproductive: NONE History of MRSA: No History of VRE: No History of CDIFF: No Surgical History Surgical History: OPEN HEART SURGERY DIAPHRAGM SURGERY Psychosocial History Who do you live with Significant Other What is your primary language Uzbek Tobacco Use: Current Daily Use Daily Tobacco Use Amount/Type: => 5 Cigarettes daily ETOH Use: denies use Illicit Drug Use: denies illicit drug use Family History Hx Contributory? No (Michelle BEDOYA,Yahir Cee) Review of Systems Review of Systems Constitutional: Reports: no symptoms. EENTM: Reports: no symptoms. Respiratory: Reports: no symptoms. Cardiovascular: Reports: no symptoms. GI: Reports: no symptoms. Genitourinary: Reports: no symptoms. Musculoskeletal: Reports: no symptoms. Skin: Reports: no symptoms. Neurological/Psychological: Reports: see HPI. Hematologic/Endocrine: Reports: no symptoms. Immunologic/Allergic: Reports: no symptoms. All Other Systems: Reviewed and Negative (Michelle BEDOYA,Yahir Cee) Physical Exam Physical Exam General Appearance: SEE BELOW Cranial Nerves: SEE BELOW Comments: Gen.: Well-nourished, well-developed, no acute respiratory distress. Head: Normocephalic, atraumatic. Eyes: Normal inspection bilaterally Ears: Normal inspection bilaterally Nose: Normal inspection Throat/mouth : Moist mucosa, dentures Neck: Supple, full range of motion, no goiter, no carotid bruits, equal carotid pulses Heart: Regular rate and rhythm, no murmurs rubs or gallops Lungs: Clear to auscultation bilaterally with normal air entry Chest: Nontender Back: Normal range of motion Abdomen: Soft, nontender, nondistended, normal bowel sounds Extremities: Normal range of motion grossly, equal radial pulses, no cyanosis clubbing or edema, weak bilateral hand grasps without focal motor weakness, sensation intact to all extremities Neurologic: Cranial nerves 2 through 12 intact, speech is slurred/dysarthric Skin: warm and dry Psychiatric: Calm, cooperative, no apparent delusions or hallucinations (Michelle BEDOYA,Yahir Cee) Core Measures CVA/TIA Diagnosis: No Sepsis Present: No Sepsis Focused Exam Completed? No (Joan BEDOYA,Riacrdo Vaz) Progress Differential Diagnosis: tia, cva, MEDICATION SIDE EFFECT Plan of Care: Orders Procedure Date/time Status Nothing by Mouth 11/14 B Active LIPID PANEL 11/14 0600 Active CBC WITHOUT DIFFERENTIAL 11/14 0600 Active BASIC ELECTROLYTES PLUS BUN&CR 11/14 0600 Active ECHOCARDIOGRAM 11/14 0600 Active TROPONIN LEVEL 11/14 0030 Active EKG 11/14 0030 Active Intake & Output 11/14 0015 Active Saline Lock 11/13 2150 Active Misc Message 11/13 2150 Active ED Holding Orders 11/13 2150 Active Admit to inpatient 11/13 2150 Active Pathway - chart 11/13 2140 Active Pathway - chart 11/14 2139 Active Patient Data 11/14 2103 Active Misc Message 11/14 2051 Active ED Holding Orders 11/14 2051 Active Code Status 11/14 2051 Active Add-on Test (ER Only) 11/13 175 Active URINE DRUG SCREEN FOR ER ONLY 11/13 1757 Active URINALYSIS 11/13 1757 Active EKG 11/13 1719 Active FingerStick- Glucose 11/13 1718 Active TROPONIN LEVEL 11/13 1718 Complete ETHANOL 11/13 1718 Complete COMPREHENSIVE METABOLIC PANEL 11/13 1718 Complete CBC WITHOUT DIFFERENTIAL 11/13 1718 Complete [id number] DOPPLER 11/13 UNK Active SWALLOW EVALUATION 11/13 UNK Active PT Evaluate & Treat 11/13 UNK Active House Staff 11/13 UNK Active Occupational Tx Eval & Treat 11/13 UNK Active VTE Mechanical Prophylaxis 11/13 UNK Active Vital Signs 11/13 UNK Active Telemetry/Clammer 11/13 UNK Active Precautions 11/13 UNK Active NIH Stroke Scale 11/13 UNK Active Elevate 11/13 UNK Active Activity/Ambulation 11/13 UNK Active Current Medications Sig/Veto Start time Last Medication Dose Stop Time Status Admin Atorvastatin Calcium 40 MG 1700 11/14 1700 AC (Lipitor) Alprazolam 1 MG BID 11/14 09 AC (Xanax) 11/21 0859 Aspirin Buffered 81 MG DAILY 11/14 09 AC (Ecotrin) Enoxaparin Sodium 40 MG DAILY 11/14 09 AC (Lovenox) Hydrochlorothiazide 25 MG DAILY 11/14 09 AC (Hydrodiuril) Isosorbide 60 MG DAILY 11/14 09 AC Mononitrate (Imdur) Lidocaine 1 PAT DAILY 11/14 09 AC (Lidoderm) Lisinopril 10 MG DAILY 11/14 09 AC (Prinivil) Metoprolol Tartrate 37.5 MG BID 11/14 09 AC (Lopressor) Insulin Aspart 0 TIDAC 11/14 0800 AC (NovoLOG) Cyclobenzaprine HCl 10 MG AT BEDTIME 11/13 2345 AC 11/14 (Flexeril 10MG Tab) 0009 Acetaminophen 650 MG Q6P PRN 11/13 2330 AC (Tylenol) Hydrocodone Bitart/ 1 TAB Q6P PRN 11/13 2330 AC Acetaminophen (Vicodin) Atorvastatin Calcium 40 MG 1700 11/13 2200 AC 11/13 (Lipitor) 223 Nicotine 14 MG DAILY 11/13 2050 AC 11/13 (Nicotine Cq) 2130 Laboratory Tests 11/14/17 0012: Troponin I Pending 11/13/17 1840: Anion Gap 14, Estimated GFR > 60, BUN/Creatinine Ratio 27.1 H, Glucose 88, Calcium 9.2, Total Bilirubin 0.7, AST 17, ALT 26, Alkaline Phosphatase 78, Troponin I < 0.01, Total Protein 7.3, Albumin 4.3, Globulin 3.0, Albumin/ Globulin Ratio 1.4, CBC w Diff NO MAN DIFF REQ, RBC 5.34, MCV 82.7, MCH 27.3, MCHC 33.0, RDW 15.0 H, MPV 10.8 H, Gran % 62.0, Lymphocytes % 28.3, Monocytes % 5.9, Eosinophils % 3.1, Basophils % 0.7, Absolute Granulocytes 5.2, Absolute Lymphocytes 2.4, Absolute Monocytes 0.5, Absolute Eosinophils 0.3, Absolute Basophils 0.1, Serum Alcohol < 10.0 Diagnostic Imaging: Discussed w/RAD: CT Scan. Radiology Impression: PATIENT: VJ ESPINOSA PRESENT AGE: 62 PATIENT ACCOUNT NO: [id number] : 57 LOCATION: [facility] ORDERING PHYSICIAN: Quoc STEWART SERVICE DATE: 11/13/17 EXAM TYPE: CAT - CT HEAD WO IV CONTRAST EXAMINATION: CT HEAD WITHOUT CONTRAST CLINICAL INFORMATION: Facial droop. COMPARISON: Head CT from 05/11/2017. TECHNIQUE: Contiguous axial imaging was performed from the skull base to vertex without intravenous administration of contrast. DLP: 613.08 mGy-cm FINDINGS: There is no evidence of acute intracranial hemorrhage or territorial infarction. No abnormal mass effect or midline shift is seen. Villarreal to white matter differentiation is well preserved. No extra-axial fluid collections are identified. The ventricles are normal in size. There is no abnormal attenuation within the brain parenchyma. There is nonspecific high parietal deep scalp soft tissue thickening which was visible on the prior study. The osseous structures are normal. The mastoid air cells and visualized portions of the paranasal sinuses are well aerated. IMPRESSION: No acute intracranial pathology. DICTATED BY: Eamon Espinosa MD DATE/TIME DICTATED:11/13/171735 NEWS VIDEOTAPE EDITOR:NEW DATE/TIME TRANSCRIBED:11/13/171735 CONFIDENTIAL, DO NOT COPY WITHOUT APPROPRIATE AUTHORIZATION. <Electronically signed in Other Vendor System> SIGNED BY: Eamon Espinosa MD 11/13/17 4096 Initial ED EKG: NSR, rate (77) Prior EKG: unchanged Comments: 11/13/2017 7:18:47 PM patient signed out to Dr. Franco at shift spring coverer. (Michelle BEDOYA,Yahir Cee) Radiology Impression: PATIENT: VJ ESPINOSA PRESENT AGE: 62 PATIENT ACCOUNT NO: [id number] : 59 LOCATION: ER ORDERING PHYSICIAN: Quoc STEWART SERVICE DATE: 11/13/17 EXAM TYPE: CAT - CT HEAD WO IV CONTRAST EXAMINATION: CT HEAD WITHOUT CONTRAST CLINICAL INFORMATION: Facial droop. COMPARISON: Head CT from 05/11/2017. TECHNIQUE: Contiguous axial imaging was performed from the skull base to vertex without intravenous administration of contrast. DLP: 613.08 mGy-cm FINDINGS: There is no evidence of acute intracranial hemorrhage or territorial infarction. No abnormal mass effect or midline shift is seen. Villarreal to white matter differentiation is well preserved. No extra-axial fluid collections are identified. The ventricles are normal in size. There is no abnormal attenuation within the brain parenchyma. There is nonspecific high parietal deep scalp soft tissue thickening which was visible on the prior study. The osseous structures are normal. The mastoid air cells and visualized portions of the paranasal sinuses are well aerated. IMPRESSION: No acute intracranial pathology. DICTATED BY: Eamon Espinosa MD DATE/TIME DICTATED:11/13/171735 NEWS VIDEOTAPE EDITOR:NEW DATE/TIME TRANSCRIBED:11/13/171735 CONFIDENTIAL, DO NOT COPY WITHOUT APPROPRIATE AUTHORIZATION. <Electronically signed in Other Vendor System> SIGNED BY: Eamon Espinosa MD 11/13/17 0371 (Ricardo Franco MD) Departure Departure Disposition: STILL A PATIENT Condition: Stable Referrals: Ruiz Lakhani MD (PCP/Family) Departure Forms: Customer Survey General Discharge Information (Michelle BEDOYA,Yahir Cee) Departure Clinical Impression Primary Impression: Slurred speech Admission Note Spoke With: Ruiz Lakhani MD Documentation of Exam: Documentation of any treatments & extenuating circumstances including Concerns Regarding Discharge (functional status, medication knowledge or non-compliance, living conditions, etc.) that warrant an admission rather than observation: pt with recurrent episodes of slurred speech over the past 2 days, consistent with TIA's, however could also be pre-syncope. Give duration of sx and low stroke score, no need for tpa. aspirin given. pt passed swallow evaluation discussed with dr. garcia who will evaluate patient. (Joan BEDOYA,Ricardo Vaz)
[2017-11-13 19:05] LABS: ABSOLUTE BASOPHIL COUNT 0.1 /CUMM (0.0-0.2); ABSOLUTE EOSINOPHIL COUNT 0.3 /CUMM (0.0-0.7); ABSOLUTE GRANULOCYTE CT 5.2 /CUMM (1.4-6.5); ABSOLUTE LYMPH COUNT 2.4 /CUMM (1.2-3.4); ABSOLUTE MONOCYTE COUNT 0.5 /CUMM (0.10-0.60); BASOPHIL % 0.7 % (0.0-2.0); EOSINOPHIL % 3.1 % (0-5); HEMATOCRIT 44.2 % (42-52); MEAN CORPUSCULAR HGB 27.3 PG (27.0-31.0); MEAN CORPUSCULAR VOLUME 82.7 FL (80.0-94.0); MEAN PLATELET VOLUME 10.8 FL (7.4-10.4); PLATELET COUNT 176 /CUMM (130-400); RED BLOOD CELL CT 5.34 /CUMM (4.70-6.10); WHITE BLOOD CELL COUNT 8.3 /CUMM (4.8-10.8)
--- NOTE | 2017-11-13 20:49 | Admission Certification ---
Admission Certification Certification Statement - As attending physician, I certify that at the time of - admission, based on clinical presentation, severity of - symptoms, need for further diagnostic testing and - therapeutic interventions, and risk of adverse outcomes - without in-hospital treatment, in my clinical assessment, - this patient requires an acute hospital stay for a minimum - of two nights or longer. I have also considered psychsocial - factors such as support system, advanced age, financial - issues, cognitive issues, and failed out-patient treatments, - past re-admission history, safety of patient, and lack of - compliance as applicable. Specific rationale supporting this admission is: SLURRED SPEECH WEAKNESS UNSTEADY GAIT
--- NOTE | 2017-11-13 20:54 | PN- Att Addend ---
Attending Addendum Attending Brief Note 62 Year old male diabetic was seen in my office recently in stable conditions , sugars are fair. girlfriend noticed today that the patient was unsteady on his feet slurred speech ?facial asymetry,comes to the ER, will check work up for TIA vs CVA have neuro consult neuro checks and proper workup and medications, discussed with residents. Laboratory Tests 11/13/17 1840: Anion Gap 14, Estimated GFR > 60, BUN/Creatinine Ratio 27.1 H, Glucose 88, Calcium 9.2, Total Bilirubin 0.7, AST 17, ALT 26, Alkaline Phosphatase 78, Troponin I < 0.01, Total Protein 7.3, Albumin 4.3, Globulin 3.0, Albumin/ Globulin Ratio 1.4, CBC w Diff NO MAN DIFF REQ, RBC 5.34, MCV 82.7, MCH 27.3, MCHC 33.0, RDW 15.0 H, MPV 10.8 H, Gran % 62.0, Lymphocytes % 28.3, Monocytes % 5.9, Eosinophils % 3.1, Basophils % 0.7, Absolute Granulocytes 5.2, Absolute Lymphocytes 2.4, Absolute Monocytes 0.5, Absolute Eosinophils 0.3, Absolute Basophils 0.1, Serum Alcohol < 10.0 Vital Signs Date Time Temp Pulse Resp B/P B/P Pulse O2 O2 Flow FiO2 Mean Ox Delivery Rate 11/13 1838 72 16 132/82 99 Room Air 11/13 183 98 Room Air 11/13 1714 97.2 77 18 137/[address] of the head showed NO acute abnormality.
--- NOTE | 2017-11-13 21:16 | RADIOLOGY REPORT ---
EXAMINATION: XR PORTABLE CHEST CLINICAL INFORMATION: TIA. COMPARISON: Chest radiograph 08/26/2017. TECHNIQUE: Portable frontal view of the chest was obtained. FINDINGS: Stable linear scarring within the left mid to lower lung field. There is also linear scarring/platelike atelectasis within the retrocardiac left lower lobe. The lungs are otherwise clear. No pleural effusion. Cardiomediastinal silhouette and pulmonary vasculature are within normal limits. There are atherosclerotic changes of the aorta and postoperative changes of prior median sternotomy. No acute osseous finding. IMPRESSION: Probable scarring and/or platelike atelectasis within the left lung. No evidence of acute cardiopulmonary disease.
--- NOTE | 2017-11-13 21:37 | History & Physical ---
Shahid BEDOYA,[facility] 11/13/172136: General Information and HPI MD Statement: I have seen and personally examined VJ ESPINOSA and documented this H&P. The patient is a 62 year old M who presented with a patient stated chief complaint of [slurred speech, weakness]. Source of Information: patient Exam Limitations: no limitations History of Present Illness: 62 yo M with PMH CAD s/p CABG, hypertension and diabetes presented to the ED for evaluation of slurred speech, unsteady gait and weakness. According to the patient for the past 4 days he has been experiencing intermittent episodes of slurred speech accompanied with wobbly gait and feeling that his stepping isn't right. The episodes normally last for good part of the day and then gets better, however, today his symptoms have persisted since this morning. Yesterday after dinner he laid down and slept for hours. He has noticed that for the past few days he has been drooling while sleeping which is unusual for him. He endorses lightheadedness. Denies headache, dizziness, chest pain, shortness of breath, palpitations or any other associated symptoms. 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 yes Functional Ability ADLs Independent: dressing, eating, toileting, bathing. Review of Systems Review of Systems Constitutional: Reports: weakness. Denies: chills, fever. EENTM: Denies: visual changes, hearing changes. Cardiovascular: Denies: chest pain, palpitations. Respiratory: Denies: cough, short of breath. GI: Reports: no symptoms. Genitourinary: Reports: no symptoms. Musculoskeletal: Reports: no symptoms. Skin: Reports: no symptoms. Neurological/Psychological: Reports: other (lightheadedness). Denies: headache, numbness, paresthesia, tingling. Exam & Diagnostic Data Last 24 Hrs of Vital Signs/I&O Vital Signs Date Time Temp Pulse Resp B/P B/P Pulse O2 O2 Flow FiO2 Mean Ox Delivery Rate 11/14 0024 98.5 78 18 119/65 93 Room Air 11/13 1839 72 16 132/82 99 Room Air 11/13 1835 98 Room Air 11/13 1714 97.2 77 18 137/85 97 Room Air Intake & Output 11/14 0800 11/14 0000 11/13 1600 Intake Total 200 Output Total Balance 200 Intake, Oral 200 Patient 203 lb Weight Weight Reported by Patient Measurement Method Physical Exam General Appearance Alert, Oriented X3, Cooperative, Mild Distress Skin No Rashes, No Breakdown Skin Temp/Moisture Exam: Warm/Dry Sepsis Skin Exam (color): Normal for Ethnicity HEENT Atraumatic Cardiovascular Normal S1, Normal S2, No Murmurs Lungs Clear to Auscultation, Normal Air Movement Abdomen Soft, No Tenderness Neurological Normal Speech, Strength at 5/5 X4 Ext, Cranial Nerves 3-12 NL, strength 5/5 x3. RUE not assessed due to pain in right shoulder Extremities No Edema Last 24 Hrs of Labs/Nghia: Laboratory Tests 11/14/17 0012: Troponin I < 0.01 11/13/17 1840: Anion Gap 14, Estimated GFR > 60, BUN/Creatinine Ratio 27.1 H, Glucose 88, Calcium 9.2, Total Bilirubin 0.7, AST 17, ALT 26, Alkaline Phosphatase 78, Troponin I < 0.01, Total Protein 7.3, Albumin 4.3, Globulin 3.0, Albumin/ Globulin Ratio 1.4, CBC w Diff NO MAN DIFF REQ, RBC 5.34, MCV 82.7, MCH 27.3, MCHC 33.0, RDW 15.0 H, MPV 10.8 H, Gran % 62.0, Lymphocytes % 28.3, Monocytes % 5.9, Eosinophils % 3.1, Basophils % 0.7, Absolute Granulocytes 5.2, Absolute Lymphocytes 2.4, Absolute Monocytes 0.5, Absolute Eosinophils 0.3, Absolute Basophils 0.1, Serum Alcohol < 10.0 Assessment/Plan Assessment: 62 yo M with PMH CAD s/p CABG, hypertension and diabetes presented to the ED for evaluation of slurred speech, unsteady gait and weakness. Assessment: 1. TIA vs Stroke 2. History of hypertension and diabetes Plan: * Admit patient to telemetry for monitoring of arrhythmias. * R/o ACS with serial trops and EKGs * MRI in am * Carotid U/S to assess for stenosis as a source of emboli * Neurology consult * Echocardiogram to r/o LV thrombus or ASD/PFO * Formal Swallow evaluation * PT/OT * Insulin SS with Accucheks * Diet: NPO for now. Diabetic diet * DVT Prophylaxis: SC Lovenox * Code: Full Code As Ranked By This Provider Problem List: 1. Slurred speech Core Measures/Misc (04/09) Acute Coronary Syndrome ACS Diagnosis: No Congestive Heart Failure Congestive Heart Failure Diagnosis No Cerebrovascular Accident CVA/TIA Diagnosis: Yes NIH Stroke Scale: Total 1 Date Last Known Well: 11/08/17 Symptom Start Date: 11/08/17 Reason tPA not ordered Medical Contraindication Swallow Evaluation Pass Current/Past Hx AFib/AFlutter No VTE (View Protocol) VTE Risk Factors Age>40 No Mechanical VTE Prophylaxis d/t N/A MechProphylax Ordered No VTE Pharm Prophylaxis d/t NA PharmProphylax ordered Sepsis (View protocol) Sepsis Present: No Albalwai,Afaf 11/14/17 0053: General Information and HPI Allergies/Medications Home Med list Alprazolam 1 MG TABLET 1 TAB PO BID ANXIETY (Reported) Aspirin (Ecotrin*) 81 MG TABLET.DR 1 TAB PO DAILY HEART Cyclobenzaprine HCl 10 MG TABLET 1 TAB PO QHS MUSCLE SPASMS (Reported) Escitalopram Oxalate 20 MG TABLET 30 MG PO DAILY MENTAL HEALTH Hydrochlorothiazide 25 MG TABLET 1 TAB PO DAILY BP Hydrocodone/Acetaminophen (Vicodin 5-300 MG Tablet) 5 MG-300 MG TABLET 1 TAB PO QHS PRN PAIN (Reported) Insulin Aspart, Recombinant (Novolog Flexpen) 100 UNIT/ML INSULN.PEN 0 SC SEE ADMIN CRITERIA DIABETES Insulin Detemir (Levemir Flextouch) 100 UNIT/ML (3 ML) INSULN.PEN 20 UNIT SC BID DIABETES Please take 20 units in the morning and 20 units at bedtime. Isosorbide Mononitrate (Isosorbide Mononitrate ER) 60 MG TAB.ER.24H 1 TAB PO DAILY HEART Lidocaine 5 % ADH..PATCH 1 PAT TOP BID PRN PAIN (Reported) Lisinopril 10 MG TABLET 1 TAB PO DAILY htn (Reported) Metoprolol Tartrate 25 MG TABLET 1.5 TAB PO BID HEART/BP Potassium Chloride 20 MEQ TAB.ER.PRT 1 TAB PO DAILY SUPPLEMENT Rosuvastatin Calcium (Crestor) 40 MG TABLET 1 TAB PO DAILY CHOLESTEROL Resident Review Statement Resident Statement: examined this patient, discussed with marketing operations intern, agreed with marketing operations intern, discussed with family, reviewed EMR data (avail), discussed with nursing , discussed with case mgmt, reviewed images, amended to note Other Findings: is a pleasant 62 yo man with PMH CAD s/p CABG, hypertension and diabetes presented with a c/o slurred speech, drooling, right side fascial droop and lightheadedness over the last 4 days. Patient admitted to telemetry flooor for TIA, will place neurology consult, continue ASA, statin, MRI head at am, lipid panel, carotid US, Echocardiogram, r /o ACS, will continue home meds, will obtain right shoulder x-ray to assess the right clavicualr fracture for any displacement, pain management, DVT ppx: RYAN Hallman, GATO
[2017-11-13] MEDS ORDERED: LISINOPRIL10 M1 PO (23:38)
[2017-11-14 00:35] VITALS: BP 128/76
[2017-11-14 06:53] VITALS: BP 140/82
[2017-11-14 08:13] LABS: ABSOLUTE BASOPHIL COUNT 0.1 /CUMM (0.0-0.2); ABSOLUTE EOSINOPHIL COUNT 0.4 /CUMM (0.0-0.7); ABSOLUTE GRANULOCYTE CT 2.9 /CUMM (1.4-6.5); ABSOLUTE LYMPH COUNT 2.8 /CUMM (1.2-3.4); ABSOLUTE MONOCYTE COUNT 0.4 /CUMM (0.10-0.60); BASOPHIL % 0.9 % (0.0-2.0); EOSINOPHIL % 5.5 % (0-5); GRANULOCYTE % 44.3 % (42.2-75.2); HEMATOCRIT 42.6 % (42-52); MEAN CORPUSCULAR HGB 27.2 PG (27.0-31.0); MEAN CORPUSCULAR VOLUME 82.3 FL (80.0-94.0); MEAN PLATELET VOLUME 10.9 FL (7.4-10.4); PLATELET COUNT 151 /CUMM (130-400); RBC DISTRIBUTION WIDTH 14.9 % (11.5-14.5); RED BLOOD CELL CT 5.18 /CUMM (4.70-6.10); WHITE BLOOD CELL COUNT 6.5 /CUMM (4.8-10.8)
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
--- NOTE | 2017-11-14 12:36 | Cons- Neurology ---
General Information and HPI Consulting Request Date of Consult: 11/14/17 Requested By: Ruiz Lakhani MD History of Present Illness: 62-year-old male with history of hypertension and diabetes presents with a 4 day history of slurred speech and right-sided weakness. He denied any associated headache, recent trauma, fever or prior history of stroke. He is aware that over the past month his blood pressures have been labile. He is under the care of Dr. Lakhani and is maintained on aspirin and Crestor with which she states he is generally compliant. CAT scan of the brain on admission yesterday showed no acute abnormalities. Allergies/Medications Allergies: Coded Allergies: No Known Drug Allergies (Intermediate, NONE 05/11/17) Home Med List: Alprazolam 1 MG TABLET 1 TAB PO BID ANXIETY (Reported) Aspirin (Ecotrin*) 81 MG TABLET.DR 1 TAB PO DAILY HEART Cyclobenzaprine HCl 10 MG TABLET 1 TAB PO QHS MUSCLE SPASMS (Reported) Escitalopram Oxalate 20 MG TABLET 30 MG PO DAILY MENTAL HEALTH Hydrochlorothiazide 25 MG TABLET 1 TAB PO DAILY BP Hydrocodone/Acetaminophen (Vicodin 5-300 MG Tablet) 5 MG-300 MG TABLET 1 TAB PO QHS PRN PAIN (Reported) Insulin Aspart, Recombinant (Novolog Flexpen) 100 UNIT/ML INSULN.PEN 0 SC SEE ADMIN CRITERIA DIABETES Insulin Detemir (Levemir Flextouch) 100 UNIT/ML (3 ML) INSULN.PEN 20 UNIT SC BID DIABETES Please take 20 units in the morning and 20 units at bedtime. Isosorbide Mononitrate (Isosorbide Mononitrate ER) 60 MG TAB.ER.24H 1 TAB PO DAILY HEART Lidocaine 5 % ADH..PATCH 1 PAT TOP BID PRN PAIN (Reported) Lisinopril 10 MG TABLET 1 TAB PO DAILY htn (Reported) Metoprolol Tartrate 25 MG TABLET 1.5 TAB PO BID HEART/BP Potassium Chloride 20 MEQ TAB.ER.PRT 1 TAB PO DAILY SUPPLEMENT Rosuvastatin Calcium (Crestor) 40 MG TABLET 1 TAB PO DAILY CHOLESTEROL Review of Systems Review of Systems: Notable for numbness of his feet which is chronic pain in the region of the right clavicle slurred speech, right-sided weakness, numbness and clumsiness. 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 Home Services at Home: None Smoking Status: Current Everyday Smoker ETOH Use: denies use Illicit Drug Use: denies illicit drug use Living Will? yes Functional Ability ADLs Independent: dressing, eating, toileting, bathing. Exam & Diagnostic Data Vital Signs and I&O Vital Signs Date Time Temp Pulse Resp B/P B/P Pulse O2 O2 Flow FiO2 Mean Ox Delivery Rate 11/14 09 72 146/90 11/14 0920 72 146/90 11/14 0920 72 146/90 11/14 0800 Room Air 11/14 0653 98.5 62 20 140/82 94 Room Air 11/14 0035 99.3 77 20 128/76 95 Room Air Room Air 11/14 0035 95 Room Air Room Air 11/14 0024 98.5 78 18 119/65 93 Room Air 11/13 1839 72 16 132/82 99 Room Air 11/13 1835 98 Room Air 11/13 1714 97.2 77 18 137/85 97 Room Air Intake & Output 11/14 1600 11/14 0800 11/14 0000 Intake Total 200 Output Total Balance 200 Intake, IV 0 Intake, Oral 200 Number 0 Bowel Movements Patient 202 lb 203 lb Weight Weight Reported by Patient Reported by Patient Measurement Method Pleasant middle-aged male in no acute distress. He was awake, alert and cooperative. Head was normocephalic. Pupils were equal. Extraocular movements were full. There was no field cut. He had a right central facial paresis. Hearing was grossly normal. Tongue was midline. The motor examination showed a mild right hemiparesis deep tendon reflexes were hypoactive. Plantar responses were flexor. Fine finger movements and rapid alternating movements were mildly impaired in the right hand. He reported altered light touch on the right side as compared to the left. He was able to ambulate in the room without appliance. Assessment/Plan Assessment: On clinical grounds, Mr. Kim presents with an acute, subcortical infarct manifest by dysarthria with right-sided weakness and clumsiness. There is no a aphasia or field cut which would implicate a cortical lesion Recommendations: We would recommend the following: #1 MRI of the brain without contrast #2 carotid ultrasound #3 echocardiogram #4 high-intensity statin. A lipid panel should be obtained #5 would change aspirin to Plavix 75 mg per day #6 speech, physical and occupational therapy #7 question DC home versus short-term rehabilitation. Close monitoring of blood pressure going forward. Please feel free to call with further questions. Consult Acknowledgment - Thank you for your consult request.
[2017-11-14 15:13] VITALS: BP 104/62
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
--- NOTE | 2017-11-14 16:28 | ULTRASOUND REPORT ---
EXAMINATION: DUPLEX BILATERAL CAROTID ULTRASOUND CLINICAL INFORMATION: This is a 62-year-old male with history of diabetes, tobacco use, hypertension, possible vertebral stenosis. COMPARISON: None. TECHNIQUE: Real-time ultrasound and Doppler techniques (integrating B-mode 2D vascular images, Doppler spectral analysis and color flow Doppler imaging) were utilized to interrogate the extracranial carotid and vertebral arteries bilaterally. The degree of stenosis determined by criteria similar to NASCET. FINDINGS: Right side: 1. Minimal amount of heterogeneous plaque is seen in the ECA/ICA region. 2. The common carotid artery velocity is 102 cm/s. 3. The internal carotid artery velocities are 92 cm/s systolic and 24 cm/s diastolic. 4. The external carotid artery velocity is 144 cm/s. There is a mild hemodynamically significant stenosis within the external carotid artery. Left side: 1. Minimal amount of heterogeneous plaque is seen in the ECA/ICA region. 2. The common carotid artery velocity is 141 cm/s. 3. The internal carotid artery velocities are 205 cm/s systolic and 41 cm/s diastolic. 4. The external carotid artery velocity is 193 cm/s. There is a moderate hemodynamically significant stenosis within the external carotid artery. ADDITIONAL FINDINGS: 1. The vertebral arteries show antegrade flow. IMPRESSION: 1. RIGHT: Minimal, nonhemodynamically significant stenosis of the proximal right internal carotid artery corresponding to a 0-49% stenosis by velocity criteria. 2. LEFT: Moderate, hemodynamically significant stenosis of the proximal left internal carotid artery corresponding to a 50-79% stenosis by velocity criteria. 3. The vertebral arteries are antegrade bilaterally.
[2017-11-14 22:10] VITALS: BP 124/70
[2017-11-15 06:49] VITALS: BP 134/78
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
--- NOTE | 2017-11-15 09:24 | MRI REPORT ---
MR BRAIN WITHOUT CONTRAST CLINICAL INFORMATION: Slurred speech and drooling. COMPARISON: Head CT 11/13/2017. TECHNIQUE: MRI of the brain without contrast was obtained using routine sequences. FINDINGS: There is an acute to subacute infarct involving the left hemipons without evidence of hemorrhagic transformation. No significant mass effect. There are no additional acute infarcts. There are T2 signal changes within the supratentorial white matter, most likely mild chronic microangiopathy. There is no hydrocephalus, extra-axial surface collection, or herniation. Possible loss of the distal left cervical and intradural left vertebral artery flow void that would indicate slow flow within versus occlusion of this vessel. A MRA or CTA could be obtained for further assessment. There is no intracranial hemorrhage on the gradient recalled echo acquisition. The midline structures are normal. The cerebellar tonsils are normally positioned. The craniocervical junction is normal. Osseous marrow signal intensity is homogenous. The visualized soft tissues are unremarkable. IMPRESSION: - There is an acute to subacute infarct involving the left hemipons without evidence of hemorrhagic transformation. No significant mass effect. - Possible loss of the distal left cervical and intradural left vertebral artery flow void that would indicate slow flow within versus occlusion of this vessel. A MRA or CTA could be obtained for further assessment. - There is mild chronic microangiopathy. These findings were discussed with Dr. Mabry at 9:17 AM on 11/15/2017.
--- NOTE | 2017-11-15 13:10 | Patient Discharge Instructions ---
Discharge Instructions General Discharge Information You were seen/treated for: acute stroke Special Instructions: Change aspirin to plavix. Continue taking statin medication. Follow up with your primary care physician and neurologist Acute Coronary Syndrome Inclusion Criteria At DC or during hospital stay patient has or had the following: ACS DIAGNOSIS No Discharge Core Measures Meds if any: Prescribed or Continued at Discharge Meds if any: NOT Prescribed or Continued at Discharge Congestive Heart Failure Inclusion Criteria At DC or during hospital stay patient has or had the following: CHF DIAGNOSIS No Discharge Core Measures Meds if any: Prescribed or Continued at Discharge Meds if any: NOT Prescribed or Continued at Discharge Cerebrovascular accident Inclusion Criteria At DC or during hospital stay patient has or had the following: CVA/TIA Diagnosis Yes Discharge Core Measures Meds if any: Prescribed or Continued at Discharge Antithrombotic Yes Statin (required if LDL =>70) Yes Anticoagulant No Meds if any: NOT Prescribed or Continued at Discharge No Anticoagulant d/t Medical Contraindication (outside TPA window) Venous thromboembolism Inclusion Criteria VTE Diagnosis No VTE Type NONE VTE Confirmed by (Test) NONE Discharge Core Measures - Per Current guidelines, there needs to be overlap - treatment for the first 5 days of Warfarin therapy. - If discharged on Warfarin prior to 5 days of - overlap therapy, the patient will need to be - assessed for post discharge needs including - *Post discharge parental anticoagulation - *Warfarin and/or parental anticoagulation education - *Follow up date to check INR post discharge At least 5 days overlap therapy as Inpatient Yes Meds if any: Prescribed or Continued at Discharge Note: Overlap Therapy is Warfarin and Anticoagulant Meds if any: NOT Prescribed or Continued at Discharge
[2017-11-15] MEDS ORDERED: LISINOPRIL10 M1 PO (13:12)
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
--- NOTE | 2017-11-15 14:17 | PN- Att Addend ---
Attending Addendum Attending Brief Note Patient in bed. Able to move all limbs. His speech seems to be improved today His vital signs are stable blood pressure stable with no new changes on physical exam appreciate neurology's input and recommendations. MRI of the head showed an acute to subacute infarct evolving left tsering-amarjit without evidence of hemorrhagic transformation with no significant mass effect. Mild chronic microangiopathy and question of low flow versus occlusion of the left vertebral artery patient already was started on a statin and antiplatelet therapy check with neurology to see the patient needs any additional treatments to the results of the MRI also would need a speech therapy consultation Intake & Output 11/150 11/14 1600 11/14 04011/13 1600 11/13 0400 Intake Total 558 502 3086 200 Output Total 250 Balance 333 614 9740 200 Intake, IV 0 Intake, Oral 172 591 6890 200 Number 0 Bowel Movements Output, Urine 250 Patient 210 lb 202 lb Weight Weight Reported by Patient Measurement Method Current Medications Sig/Veto Start time Last Medication Dose Route Stop Time Status Admin Acetaminophen 650 MG Q6P PRN 11/13 2329 AC PO Alprazolam 1 MG BID 11/14 899 AC 11/15 PO 11/21 0859 0819 Atorvastatin Calcium 40 MG 1700 11/14 1700 AC 11/14 PO 1759 Clopidogrel Bisulfate 75 MG DAILY 11/15 899 AC 11/15 PO 0819 Cyclobenzaprine HCl 10 MG AT BEDTIME 11/13 2345 AC 11/14 PO 2138 Enoxaparin Sodium 40 MG DAILY 11/14 899 AC 11/15 SC 0819 Hydrochlorothiazide 25 MG DAILY 11/14 899 AC 11/15 PO 0821 Hydrocodone Bitart/ 1 TAB Q6P PRN 11/130 AC 11/14 Acetaminophen PO 2145 Insulin Aspart 0 TIDAC 11/15 799 AC 11/15 SC 0848 Isosorbide 60 MG DAILY 11/14 899 AC 11/15 Mononitrate PO 0821 Lidocaine 1 PAT DAILY 11/14 899 AC 11/15 EXT 0949 Lisinopril 10 MG DAILY 11/14 899 AC 11/15 PO 0821 Metoprolol Tartrate 37.5 MG BID 11/14 899 AC 11/15 PO 0821 Nicotine 14 MG DAILY 11/13 TOP 0949 Laboratory Tests 11/14/17 1634: Urine Color YEL, Urine Clarity CLEAR, Urine pH 6.0, Ur Specific [place] 1.015, Urine Protein NEG, Urine Ketones NEG, Urine Nitrite NEG, Urine Bilirubin NEG, Urine Urobilinogen 0.2, Ur Leukocyte Esterase NEG, Ur Microscopic EXAM NOT REQUIRED, Urine Hemoglobin NEG, Urine Glucose >=1000 H 11/14/17 0621: Anion Gap 13, Estimated GFR > 60, BUN/Creatinine Ratio 24.3, Hemoglobin A1c 9.8 H, Troponin I < 0.01, Triglycerides 98, Cholesterol 130, LDL Cholesterol, Calc 71, HDL Cholesterol 40, Cholesterol/HDL Ratio 3, CBC w Diff NO MAN DIFF REQ, RBC 5.18, MCV 82.3, MCH 27.2, MCHC 33.0, RDW 14.9 H, MPV 10.9 H, Gran % 44.3, Lymphocytes % 43.4, Monocytes % 5.9, Eosinophils % 5.5 H, Basophils % 0.9, Absolute Granulocytes 2.9, Absolute Lymphocytes 2.8, Absolute Monocytes 0.4, Absolute Eosinophils 0.4, Absolute Basophils 0.1 11/14/17 0012: Troponin I < 0.01 11/13/17 1840: Anion Gap 14, Estimated GFR > 60, BUN/Creatinine Ratio 27.1 H, Glucose 88, Calcium 9.2, Total Bilirubin 0.7, AST 17, ALT 26, Alkaline Phosphatase 78, Troponin I < 0.01, Total Protein 7.3, Albumin 4.3, Globulin 3.0, Albumin/ Globulin Ratio 1.4, CBC w Diff NO MAN DIFF REQ, RBC 5.34, MCV 82.7, MCH 27.3, MCHC 33.0, RDW 15.0 H, MPV 10.8 H, Gran % 62.0, Lymphocytes % 28.3, Monocytes % 5.9, Eosinophils % 3.1, Basophils % 0.7, Absolute Granulocytes 5.2, Absolute Lymphocytes 2.4, Absolute Monocytes 0.5, Absolute Eosinophils 0.3, Absolute Basophils 0.1, Serum Alcohol < 10.0 11/13/17 1757: Methadone Screen Cancelled, Barbiturate Screen Cancelled, Ur Phencyclidine Scrn Cancelled, Amphetamines Screen Cancelled, U Benzodiazepines Scrn Cancelled, Urine Cocaine Screen Cancelled, Urine Cannabis Screen Cancelled Vital Signs Date Time Temp Pulse Resp B/P B/P Pulse O2 O2 Flow FiO2 Mean Ox Delivery Rate 11/15 1239 Room Air Room Air 11/15 0821 130/70 11/15 0821 130/70 11/15 0821 130/70 11/15 0649 97.8 68 20 134/78 97 Room Air 11/14 2210 98.4 69 20 124/70 96 Room Air 11/14 2150 66 128/82 11/14 1513 97.6 59 20 104/62 95
[2017-11-15] MEDS ORDERED: PLAVIX75 M1 PO (15:21)
[2017-11-15 17:23] VITALS: BP 130/70
--- NOTE | 2017-11-16 10:27 | ECHOCARDIOGRAM REPORT ---
VJ ESPINOSA Age: 62 : 1955 Gender: M Exam Date: 11/15/2017 11:02 Exam Location: [facility] Ht (in): 70 Wt (lb): 203 BSA: 2.15 BP: 104 / 62 Ordering Physician: Carmen Ling MD Referring Physician: Carmen Ling MD Technologist: Von Hernández RDCS Room Number: Indications: TIA Rhythm: Technical Quality: FINDINGS Left Ventricle Left ventricular cavity size normal. Left ventricular wall thickness at upper limits of normal. No obvious regional wall motion abnormalities. Left ventricular ejection fraction is estimated at > 55 %. Right Ventricle Normal right ventricular size and function. Right Atrium Normal right atrial size. Left Atrium Normal left atrial size. Mitral Valve Structurally normal mitral valve. Trace mitral regurgitation. Aortic Valve No aortic stenosis. Diffuse thickening (sclerosis) of the aortic valve cusps without reduced excursion. Tricuspid Valve Structurally normal tricuspid valve. Trace tricuspid regurgitation. Unable to estimate the right ventricular systolic pressure. Pulmonic Valve Pulmonic valve not well visualized, grossly normal. Pericardium No pericardial effusion. Great Vessels Normal size aortic root. CONCLUSIONS Left ventricular cavity size normal. Left ventricular wall thickness at upper limits of normal. No obvious regional wall motion abnormalities. Left ventricular ejection fraction is estimated at > 55 %. Normal right ventricular size and function. No pericardial effusion. Unable to estimate the right ventricular systolic pressure. Sarath Mcclelland M.D. (Electronically Signed) Final Date: 16 November 2017 10:26 MEASUREMENTS (Male / Female) Normal Values 2D ECHO LV Diastolic Diameter PLAX 3.2 cm 4.2 - 5.9 / 3.9 - 5.3 cm LV Systolic Diameter PLAX 2.6 cm 2.1 - 4.0 cm LV Fractional Shortening PLAX 18.8 % 25 - 46 % LV Ejection Fraction 2D Teich 39.9 % IVS Diastolic Thickness 1.3 cm LVPW Diastolic Thickness 1.1 cm LV Relative Wall Thickness 0.8 LVOT Diameter 1.9 cm Aortic Root Diameter 3.0 cm LA Systolic Diameter LX 3.6 cm 3.0 - 4.0 / 2.7 - 3.8 cm LA Volume 79.0 cm 18 - 58 / 22 - 52 cm Ascending Aorta Diameter 3.4 cm DOPPLER AV Peak Velocity 128.0 cm/s AV Peak Gradient 6.6 mmHg AV Mean Velocity 86.1 cm/s AV Mean Gradient 3.0 mmHg AV Velocity Time Integral 28.4 cm LVOT Peak Velocity 82.0 cm/s LVOT Peak Gradient 2.7 mmHg LVOT Mean Velocity 57.6 cm/s LVOT Mean Gradient 2.0 mmHg LVOT Velocity Time Integral 18.8 cm LVOT Stroke Volume 53.3 cm AV Area Cont Eq vti 1.9 cm AV Area Cont Eq pk 1.8 cm MV Peak Velocity 92.4 cm/s MV Peak Gradient 3.4 mmHg MV Mean Velocity 47.2 cm/s MV Mean Gradient 1.0 mmHg Mitral E Point Velocity 79.0 cm/s Mitral A Point Velocity 53.3 cm/s Mitral E to A Ratio 1.5 MV PHT Velocity 96.4 cm/s MV Deceleration Grainger 279.0 cm/s MV Pressure Half Time 103.7 ms MV Area PHT 2.1 cm MV Deceleration Time 190.0 ms TR Peak Velocity 248.0 cm/s TR Peak Gradient 24.6 mmHg Right Atrial Pressure 10.0 mmHg Pulmonary Artery Systolic Pressu 34.6 mmHg Right Ventricular Systolic Press 34.6 mmHg PV Peak Velocity 82.7 cm/s PV Peak Gradient 2.7 mmHg PV Mean Velocity 62.3 cm/s PV Mean Gradient 2.0 mmHg PV Velocity Time Integral 19.5 cm LV E' Lateral Velocity 8.7 cm/s Mitral E to LV E' Lateral Ratio 9.1 LV E' Septal Velocity 6.8 cm/s Mitral E to LV E' Septal Ratio 11.6
== END 2017-11-15 18:15 | DRG 45 ==
LOC: ERH 17:09 → 1NO 21:51 → ERHI 21:51 → ENRESERV 22:59 → 1NO 11-14 00:29 → ENPENDDIS 11-15 14:11 → 1NO 11-15 18:15
PROVIDERS: Physician Assistant Medical; Student in an Organized Health Care Education/Training Program
DX: I63.9 Cerebral infarction, unspecified (principal); G81.91 Hemiplegia, unspecified affecting right dominant side; E11.9 Type 2 diabetes mellitus without complications; Z79.4 Long term (current) use of insulin; I10 Essential (primary) hypertension; Z95.1 Presence of aortocoronary bypass graft; I25.10 Atherosclerotic heart disease of native coronary artery without angina pectoris; I25.2 Old myocardial infarction; Z79.82 Long term (current) use of aspirin
CPT/HCPCS: 1NSP; 70551; ERO; 36415; 36592; 71045; 73030-RT; 80307; 81003; 82436; 93005; 93010; 93306; 97110-GO; 97116-GO; 97161-GP; 97167-GO; 97530-GO; G0480; J0131; J1650